=== PATIENT | male | born 1935 ===

== ENCOUNTER 2018-08-13 11:45 | Inpatient (IN) | payer MEDICARE, OTHER, SELFPAY ==
[2018-08-13] VITALS (21 sets, daily range): BP systolic 77–100; BP diastolic 37–50; PULSE 66–96; RESP 16–30; TEMP 35.9–36.7; O2SAT 88–100; BMI 19.6
--- NOTE | 2018-08-13 11:57 | DI.RAD.S_ITS ---
PROCEDURE: XR CHEST 1V INDICATIONS: sob, syncope TECHNIQUE: One view of the chest was acquired. COMPARISON: [facility], CR, XR CHEST 1 VIEW, 07/07/2018, 10:34. [facility], CR, XR CHEST 2 VIEWS, 08/03/2018, 7:35. [facility], CT, CT HEAD/BRAIN WO CON, 08/13/2018, 12:37. FINDINGS: Surgical changes and devices: Pacemaking device and dual chamber leads stable over time. Lungs and pleura: Lungs are abnormal with a previously present interstitial prominence pattern but now with patchy bilateral pneumonia involving the right upper lobe, right lower lobe, the left lower lobe to a greater degree than was previously the case, and to a slight degree in the perihilar left lung. No pleural effusions or pneumothorax. Mediastinum: Mediastinal contours appear normal. Heart size is normal. Bones and chest wall: No suspicious bony lesions. Overlying soft tissues appear unremarkable. IMPRESSION: Bilateral patchy pneumonia, worsening over time. This is most prominent at the right upper lobe, and the lower lobes bilaterally. Dictated by: Han Handy M.D. on 08/13/2018 at 13:04 Approved by: Han Handy M.D. on 08/13/2018 at 13:06
--- NOTE | 2018-08-13 11:59 | ED.SYNCOPE ---
HPI - Syncope General Chief Complaint: Unresponsive Stated Complaint: Hypotension Time Seen by Provider: 08/13/18 11:55 Source: patient, EMS and old records reviewed History of Present Illness HPI narrative: This is an 83-year-old male who comes to the emergency department with complaint of loss of consciousness. Patient was at physical therapy, he was sitting in a wheelchair. He states that he felt like it was coming on. He slumped over in his wheelchair and did have a loss of consciousness. No loss of pulses. Patient's oxygenation was in the 80s when EMS arrived, he is normally on 2 L nasal cannula which she was on there at the facility. Patient is requiring about 2 beers continuing to get him up to the 90s. Patient is denying any chest pain or pressure, he is denying any headache, no vision changes, he states he does feel like it is hard to breathe. He denies any nausea or vomiting. A he did have some fecal incontinence/bowel movement while he was at the facility. Patient has been at rehab for pneumonia, he has known COPD. He denies any new swelling in his lower extremities. He does have a pacemaker, he states he does have cardiac stents. Patient denies any facial droop, no weakness or numbness. MD complaint: loss of consciousness Related Data Home Medications Medication Instructions Recorded Confirmed acetylcysteine 600 mg PO DAILY 08/13/18 08/13/18 albuterol sulfate 2 puff INHALATION Q4H PRN 08/13/18 08/13/18 albuterol sulfate 2.5 mg INHALATION Q4H PRN 08/13/18 08/13/18 ascorbic acid (vitamin C) 500 mg PO DAILY 08/13/18 08/13/18 atorvastatin 40 mg PO BEDTIME 08/13/18 08/13/18 bisacodyl 5 - 10 mg PO PRN PRN 08/13/18 08/13/18 bisacodyl 10 mg SD PRN PRN 08/13/18 08/13/18 cholecalciferol (vitamin D3) 1,000 unit PO DAILY 08/13/18 08/13/18 [Vitamin D3] clopidogrel [Plavix] 75 mg PO DAILY 08/13/18 08/13/18 coenzyme Q10 [CoQ-10] 100 mg PO DAILY 08/13/18 08/13/18 doxazosin 4 mg PO QPM 08/13/18 08/13/18 furosemide 40 mg PO DAILY 08/13/18 08/13/18 ketoconazole 1 applic TOPICAL MOWEFR 08/13/18 08/13/18 latanoprost 1 drp OPHTHALMIC (EYE) BEDTIME 08/13/18 08/13/18 lisinopril 5 mg PO DAILY 08/13/18 08/13/18 magnesium hydroxide [Milk of 30 ml PO PRN PRN 08/13/18 08/13/18 Magnesia] magnesium oxide 400 mg PO DAILY 08/13/18 08/13/18 metoprolol tartrate 100 mg PO BID 08/13/18 08/13/18 mometasone-formoterol [Dulera] 2 puff INHALATION BID 08/13/18 08/13/18 nitroglycerin 0.4 mg SUBLINGUAL Q5-15M PRN 08/13/18 08/13/18 saw palmetto 160 mg PO DAILY 08/13/18 08/13/18 sodium phosphates [Fleet Enema] 1 ea SD PRN PRN 08/13/18 08/13/18 tiotropium bromide 1 cap INHALATION DAILY 08/13/18 08/13/18 warfarin 1.5 mg PO MO 08/13/18 08/13/18 warfarin [Coumadin] 1 mg PO SUTUWETHFRSA 08/13/18 08/13/18 warfarin [Coumadin] 2 mg PO MO 08/13/18 08/13/18 Allergies Allergy/AdvReac Type Severity Reaction Status Date / Time codeine Allergy Difficulty Verified 08/13/18 13:17 Breathing Review of Systems Review of Systems ROS Unobtainable: All systems reviewed & are unremarkable except as noted in HPI and below Constitutional Denies chills, Denies fever(s), Denies frequent falls and Denies headache(s) Eyes Denies change in vision ENT Ears, Nose, Mouth, and Throat: Denies headache(s), Denies neck pain and Denies other (facial droop) Cardiovascular Denies chest pain, Denies diaphoresis, Reports syncope, Denies irregular heart rhythm, Denies leg edema, Reports lightheadedness, Denies radiating jaw, neck or arm pain, Denies palpitations, Reports dyspnea (chronic), Reports dyspnea on exertion (chronic) and Denies orthopnea Respiratory Denies change in phlegm color, Reports chest congestion, Reports cough, Denies hemoptysis, Reports dyspnea (chronic) and Reports dyspnea on exertion (chronic) Gastrointestinal Gastrointestinal: Denies abdominal pain, Denies belching, Denies melena, Denies change in bowel habits, Reports fecal incontinence (with syncope), Denies diarrhea, Denies nausea and Denies vomiting Genitourinary Denies hematuria, Denies flank pain, Denies urinary frequency, Denies urinary incontinence and Denies urinary urgency Musculoskeletal Denies back pain and Denies neck pain Neurologic Denies abnormal speech, Denies confusion, Reports syncope, Denies frequent falls, Denies headache(s), Denies focal weakness and Denies sensory deficit Psychiatric Denies confusion Endocrine Denies palpitations [facility] Medical History COPD (chronic obstructive pulmonary disease) (Acute) Cardiac arrhythmia (Acute) Coronary artery disease (Acute) Pacemaker (Acute) Surgical History History of heart artery stent (Acute) Family History Mother Heart disease Brother Heart disease Social History household members: other Smoking Status: Former smoker alcohol intake: current Exam Narrative Exam Narrative: GEN: Thin elderly male, alert and oriented x 3, patient appears to be in moderate distress. Patient appears to not be feeling well. Pale. HEENT: Atraumatic, pupils are equal round reactive to light, extraocular movements are intact, nares are clear, TMs are clear with no fluid, there is no conjunctival pallor. Throat is clear without any exudates, erythema, tonsillar enlargement or uvular deviation, no facial droop. HEART: Regular rate and rhythm without murmur, clicks, rubs. Pulses are equal in upper and lower extremities LUNGS:Lungs have equal breath sounds bilaterally, decreased patient has crackles bilaterally in the bases and throughout. No rhonchi are noted. No wheezes noted. Patient has tachypnea with some mild to moderate accessory muscle use. ABD:bowel sounds normal, soft, non-tender, no guarding, rebound, rigidity, no masses noted, no hepatosplenomegaly :No CVA tenderness MSCL: Non-tender, no muscle atrophy. NEURO:CN 2-12 intact, sensation normal. No dysarthria. Initial Vital Signs Initial Vital Signs: Vital Signs Temperature 96.7 F L 08/13/18 11:53 Pulse Rate 66 08/13/18 11:53 Respiratory Rate 22 08/13/18 11:53 Blood Pressure 77/41 L 08/13/18 11:53 Pulse Oximetry 98 08/13/18 11:53 Scores GCS Debbie coma scale eye opening: Spontaneous [place] coma scale verbal response: Orientated Debbie coma scale motor response: Obey commands Debbie coma scale total score: 15 Course Orders Ordered: ED Orders 08/13/18 11:55 B Type Natriuretic Peptide Stat Lactate (Lactic Acid) Stat 08/13/18 11:56 EKG-12 Lead Stat 08/13/18 11:57 XR chest 1V Stat 08/13/18 12:15 Arterial Blood Gas Stat 08/13/18 12:25 Clostridium Difficile Tox PCR Stat Complete Blood Count AUTO DIFF Stat Comprehensive Metabolic Panel Stat Magnesium Stat Procalcitonin Stat Prothrombin Time INR Stat Troponin & CK Cardiac Panel Stat 08/13/18 12:28 Blood Culture Stat 08/13/18 12:45 CT head/brain wo con Stat 08/13/18 13:30 Influenza A and B by PCR Rapid Stat 08/13/18 13:39 Urinalysis and Microscopic Stat 08/13/18 17:27 Education, smoking cessation ONGOING 08/13/18 17:28 Consult to Occupational Therapy Evaluate & Treat Consult to Physical Therapy Evaluate & Treat 08/13/18 19:00 Basic Metabolic Panel DAILY Complete Blood Count AUTO DIFF DAILY Acetaminophen (Tylenol) 650 mg PO Q6HR PRN PRN Reason: As Needed for Fever/Mild Pain Albuterol/Ipratropium (Duoneb) 3 ml INH [id number] [facility] Atorvastatin Calcium (Lipitor) 40 mg PO BEDTIME [facility] Clopidogrel Bisulfate (Plavix) 75 mg PO DAILY [facility] Last Admin: 08/13/18 18:48 Dose: Not Given Sodium Chloride (Normal Saline 0.45%) 1,000 mls @ 100 mls/hr IV CONT [facility] Last Admin: 08/13/18 19:06 Dose: 100 mls/hr Latanoprost (Xalatan) 1 drops EYE-LEFT BEDTIME [facility] Lisinopril (Zestril) 5 mg PO DAILY [facility] Nitroglycerin (Nitrostat) 0.4 mg SL [id number] PRN PRN Reason: Chest Pain Ondansetron HCl (Zofran) 4 mg IV Q8HR PRN PRN Reason: Nausea And Vomiting Fluticasone/Salmeterol (Advair 500/50 Diskus) 1 puff INH RTBID [facility] Tiotropium [place] (Spiriva) 18 mcg INH RTDAILY [facility] Vitamin D (Vitamin D3) 1,000 unit PO DAILY [facility] Last Admin: 08/13/18 18:48 Dose: Not Given Warfarin Sodium (Coumadin) 1 mg PO 1700 [facility] Last Admin: 08/13/18 19:05 Dose: 1 mg Discontinued Medications Albuterol/Ipratropium (Duoneb) 3 ml INH NOW ONE Stop: 08/13/18 11:59 Last Admin: 08/13/18 12:05 Dose: 3 ml Furosemide (Lasix) 40 mg IV NOW ONE Stop: 08/13/18 11:59 Last Admin: 08/13/18 13:22 Dose: 40 mg Sodium Chloride (Normal Saline 0.9%) 1,000 mls @ 1,000 mls/hr IV BOLUS ONE Stop: 08/13/18 12:54 Last Infusion: 08/13/18 13:35 Dose: 0 mls/hr Admin: 08/13/18 12:30 Dose: 1,000 mls/hr Piperacillin/Tazobactam/Dextrose (Zosyn) 3.375 gm in 50 mls @ 100 mls/hr IV NOW ONE Stop: 08/13/18 14:00 Last Infusion: 08/13/18 14:19 Dose: 0 mls/hr Admin: 08/13/18 13:43 Dose: 100 mls/hr Calcium Gluconate 4.65 meq/ (Sodium Chloride) 60 mls @ 120 mls/hr IV NOW ONE Stop: 08/13/18 13:32 Last Infusion: 08/13/18 14:19 Dose: 0 mls/hr Admin: 08/13/18 13:43 Dose: 120 mls/hr Vital Signs - 8 hr 08/13/18 12:10 08/13/18 12:30 08/13/18 12:48 Temperature Pulse Rate 75 81 83 Respiratory Rate 26 H 28 H 28 H Blood Pressure Blood Pressure [Left Arm] 85/43 L 82/48 L Blood Pressure [Right Arm] Pulse Oximetry 100 95 99 08/13/18 12:51 08/13/18 12:57 08/13/18 13:00 Temperature Pulse Rate 79 83 80 Respiratory Rate 30 H 30 H 23 Blood Pressure Blood Pressure [Left Arm] 80/49 L 100/46 L 84/50 L Blood Pressure [Right Arm] Pulse Oximetry 99 95 08/13/18 13:05 08/13/18 13:42 08/13/18 14:25 Temperature Pulse Rate 79 78 Respiratory Rate 24 26 H Blood Pressure Blood Pressure [Left Arm] 78/44 L 91/50 L 98/46 L Blood Pressure [Right Arm] Pulse Oximetry 97 95 08/13/18 15:15 08/13/18 15:50 08/13/18 15:55 Temperature Pulse Rate 80 80 82 Respiratory Rate 22 23 22 Blood Pressure Blood Pressure [Left Arm] 84/42 L Blood Pressure [Right Arm] 89/48 L 80/42 L Pulse Oximetry 97 96 96 08/13/18 16:12 08/13/18 16:40 08/13/18 18:25 Temperature 97.4 F L Pulse Rate 79 88 Respiratory Rate 18 20 Blood Pressure 98/49 L Blood Pressure [Left Arm] Blood Pressure [Right Arm] 96/45 L Pulse Oximetry 96 94 94 MDM - Syncope Lab Data Attestation: I reviewed the patient's lab results. Result diagrams: 08/13/18 19:00 08/13/18 19:00 Lab Results 08/13/18 08/13/18 08/13/18 Range/Units 11:55 11:55 12:15 WBC (4.5-11.0) X10^3/uL RBC (4.5-5.9) X10^6/uL Hgb (13.5-17.5) g/dL Hct (41-53) % MCV (80-100) fL MCH (26-34) PG MCHC (30-36) % RDW (11.6-14.8) % Plt Count (150-400) X10^3/uL Neut % (Auto) Lymph % (Auto) [place] % (Auto) Eos % (Auto) Baso % (Auto) Neut # (Auto) (0504-2849) /uL Lymph # (Auto) [place] # (Auto) Eos # (Auto) (0-450) /uL Baso # (Auto) Total Counted Seg Neutrophils % (38-70) % Band Neutrophils % (3-7) % Lymphocytes % (Manual) (25-45) % Atypical Lymphs % ( - 0) % Monocytes % (Manual) (2-11) % Neutrophils # (Manual) (2120-6214) /uL RBC Morphology Poikilocytosis Anisocytosis Macrocytosis Ovalocytes PT (10.1-12.7) SECONDS INR (0.9-1.3) ABG pH 7.41 (7.35-7.45) ABG pCO2 38.2 (35-45) mmHg ABG pO2 128 H (80-100) mmHg ABG HCO3 24 (22-26) mmol/L ABG Total CO2 25 (21-31) mmol/L ABG O2 Saturation 99 (95-100) % ABG Base Excess 0.0 (-2-2) mmol/L FiO2 100 Sodium (137-145) mmol/L Potassium (3.4-5.1) mmol/L Chloride (98-107) mmol/L Carbon Dioxide (22-32) mmol/L BUN (9-20) mg/dL Creatinine (0.66-1.25) mg/dL Estimated GFR (>60) mL/min BUN/Creatinine Ratio (6-22) Glucose (80-110) mg/dL Lactate 1.8 (0.7-2.1) mmol/L Calcium (8.4-10.2) mg/dL Magnesium (1.6-2.3) mg/dL Total Bilirubin (0.2-1.3) mg/dL AST (17-59) IU/L ALT (21-72) IU/L Alkaline Phosphatase (38-126) U/L Total Creatine Kinase (55-170) U/L CK-MB (CK-2) CK-MB (CK-2) Rel Index Troponin I (0.01-0.034) ng/mL B-Natriuretic Peptide 821 H (<100) Total Protein (6.3-8.2) g/dL Albumin (3.5-5.0) g/dL Globulin (1.7-4.1) g/dL Albumin/Globulin Ratio (1.0-2.8) Procalcitonin (<0.5) ng/mL Urine Color Urine Appearance Urine pH (4.5-8.0) Ur Specific [place] (1.000-1.035) Urine Protein (Negative) Urine Glucose (UA) (Negative) g/dL Urine Ketones (NEGATIVE) Urine Occult Blood (Negative) Urine Nitrate (Negative) Urine Bilirubin (NEGATIVE) Urine Urobilinogen (0.2) E.U./dL Ur Leukocyte Esterase (NEGATIVE) Urine RBC (0-5/HPF) Urine WBC (0-5/HPF) Urine Bacteria (None) Hyaline Casts (None) Ur Culture Indicated? C. difficile Tox (PCR) Influenza A & B (PCR) (Negative) 08/13/18 08/13/18 08/13/18 Range/Units 12:25 12:25 12:25 WBC 14.3 H (4.5-11.0) X10^3/uL RBC 2.50 L (4.5-5.9) X10^6/uL Hgb 8.7 L (13.5-17.5) g/dL Hct 25.5 L (41-53) % MCV 102.1 H (80-100) fL MCH 35.0 H (26-34) PG MCHC 34.3 (30-36) % RDW 17.2 H (11.6-14.8) % Plt Count 298 (150-400) X10^3/uL Neut % (Auto) Not Reportable Lymph % (Auto) Not Reportable [place] % (Auto) Not Reportable Eos % (Auto) Not Reportable Baso % (Auto) Not Reportable Neut # (Auto) (0283-1669) /uL Lymph # (Auto) Not Reportable [place] # (Auto) Not Reportable Eos # (Auto) (0-450) /uL Baso # (Auto) Not Reportable Total Counted 100 Seg Neutrophils % 92.0 H (38-70) % Band Neutrophils % 2.0 L (3-7) % Lymphocytes % (Manual) 2.0 L (25-45) % Atypical Lymphs % 1.0 H ( - 0) % Monocytes % (Manual) 3.0 (2-11) % Neutrophils # (Manual) 71655 H (3603-6410) /uL RBC Morphology See below Poikilocytosis 2+ H Anisocytosis 1+ H Macrocytosis 1+ H Ovalocytes 2+ H PT 28.1 H D (10.1-12.7) SECONDS INR 2.4 H (0.9-1.3) ABG pH (7.35-7.45) ABG pCO2 (35-45) mmHg ABG pO2 (80-100) mmHg ABG HCO3 (22-26) mmol/L ABG Total CO2 (21-31) mmol/L ABG O2 Saturation (95-100) % ABG Base Excess (-2-2) mmol/L FiO2 Sodium 136 L (137-145) mmol/L Potassium 4.7 (3.4-5.1) mmol/L Chloride 101 (98-107) mmol/L Carbon Dioxide 28 (22-32) mmol/L BUN 30 H (9-20) mg/dL Creatinine 1.10 (0.66-1.25) mg/dL Estimated GFR > 60.0 (>60) mL/min BUN/Creatinine Ratio 27.3 H (6-22) Glucose 148 H (80-110) mg/dL Lactate (0.7-2.1) mmol/L Calcium 7.9 L (8.4-10.2) mg/dL Magnesium 1.9 (1.6-2.3) mg/dL Total Bilirubin 0.4 (0.2-1.3) mg/dL AST 35 (17-59) IU/L ALT 35 (21-72) IU/L Alkaline Phosphatase 77 (38-126) U/L Total Creatine Kinase 24 L (55-170) U/L CK-MB (CK-2) TNP CK-MB (CK-2) Rel Index TNP Troponin I < 0.012 (0.01-0.034) ng/mL B-Natriuretic Peptide (<100) Total Protein 5.9 L (6.3-8.2) g/dL Albumin 2.8 L (3.5-5.0) g/dL Globulin 3.1 (1.7-4.1) g/dL Albumin/Globulin Ratio 0.9 L (1.0-2.8) Procalcitonin (<0.5) ng/mL Urine Color Urine Appearance Urine pH (4.5-8.0) Ur Specific [place] (1.000-1.035) Urine Protein (Negative) Urine Glucose (UA) (Negative) g/dL Urine Ketones (NEGATIVE) Urine Occult Blood (Negative) Urine Nitrate (Negative) Urine Bilirubin (NEGATIVE) Urine Urobilinogen (0.2) E.U./dL Ur Leukocyte Esterase (NEGATIVE) Urine RBC (0-5/HPF) Urine WBC (0-5/HPF) Urine Bacteria (None) Hyaline Casts (None) Ur Culture Indicated? C. difficile Tox (PCR) Influenza A & B (PCR) (Negative) 08/13/18 08/13/18 08/13/18 Range/Units 12:25 12:25 13:30 WBC (4.5-11.0) X10^3/uL RBC (4.5-5.9) X10^6/uL Hgb (13.5-17.5) g/dL Hct (41-53) % MCV (80-100) fL MCH (26-34) PG MCHC (30-36) % RDW (11.6-14.8) % Plt Count (150-400) X10^3/uL Neut % (Auto) Lymph % (Auto) [place] % (Auto) Eos % (Auto) Baso % (Auto) Neut # (Auto) (0849-6272) /uL Lymph # (Auto) [place] # (Auto) Eos # (Auto) (0-450) /uL Baso # (Auto) Total Counted Seg Neutrophils % (38-70) % Band Neutrophils % (3-7) % Lymphocytes % (Manual) (25-45) % Atypical Lymphs % ( - 0) % Monocytes % (Manual) (2-11) % Neutrophils # (Manual) (7745-9299) /uL RBC Morphology Poikilocytosis Anisocytosis Macrocytosis Ovalocytes PT (10.1-12.7) SECONDS INR (0.9-1.3) ABG pH (7.35-7.45) ABG pCO2 (35-45) mmHg ABG pO2 (80-100) mmHg ABG HCO3 (22-26) mmol/L ABG Total CO2 (21-31) mmol/L ABG O2 Saturation (95-100) % ABG Base Excess (-2-2) mmol/L FiO2 Sodium (137-145) mmol/L Potassium (3.4-5.1) mmol/L Chloride (98-107) mmol/L Carbon Dioxide (22-32) mmol/L BUN (9-20) mg/dL Creatinine (0.66-1.25) mg/dL Estimated GFR (>60) mL/min BUN/Creatinine Ratio (6-22) Glucose (80-110) mg/dL Lactate (0.7-2.1) mmol/L Calcium (8.4-10.2) mg/dL Magnesium (1.6-2.3) mg/dL Total Bilirubin (0.2-1.3) mg/dL AST (17-59) IU/L ALT (21-72) IU/L Alkaline Phosphatase (38-126) U/L Total Creatine Kinase (55-170) U/L CK-MB (CK-2) CK-MB (CK-2) Rel Index Troponin I (0.01-0.034) ng/mL B-Natriuretic Peptide (<100) Total Protein (6.3-8.2) g/dL Albumin (3.5-5.0) g/dL Globulin (1.7-4.1) g/dL Albumin/Globulin Ratio (1.0-2.8) Procalcitonin 0.15 (<0.5) ng/mL Urine Color Urine Appearance Urine pH (4.5-8.0) Ur Specific [place] (1.000-1.035) Urine Protein (Negative) Urine Glucose (UA) (Negative) g/dL Urine Ketones (NEGATIVE) Urine Occult Blood (Negative) Urine Nitrate (Negative) Urine Bilirubin (NEGATIVE) Urine Urobilinogen (0.2) E.U./dL Ur Leukocyte Esterase (NEGATIVE) Urine RBC (0-5/HPF) Urine WBC (0-5/HPF) Urine Bacteria (None) Hyaline Casts (None) Ur Culture Indicated? C. difficile Tox (PCR) Negative for c. diff Influenza A & B (PCR) Negative (Negative) 08/13/18 08/13/18 08/13/18 Range/Units 13:39 19:00 19:00 WBC 14.1 H (4.5-11.0) X10^3/uL RBC 2.52 L (4.5-5.9) X10^6/uL Hgb 8.9 L (13.5-17.5) g/dL Hct 27.5 L (41-53) % MCV 108.9 H D (80-100) fL MCH 35.2 H (26-34) PG MCHC 32.3 (30-36) % RDW 18.1 H (11.6-14.8) % Plt Count 309 (150-400) X10^3/uL Neut % (Auto) 84.5 H Lymph % (Auto) 6.7 L [place] % (Auto) 8.0 Eos % (Auto) 0.4 L Baso % (Auto) 0.4 Neut # (Auto) 80338 H (4753-5330) /uL Lymph # (Auto) 900 L [place] # (Auto) 1100 H Eos # (Auto) 100 (0-450) /uL Baso # (Auto) 0 Total Counted Seg Neutrophils % (38-70) % Band Neutrophils % (3-7) % Lymphocytes % (Manual) (25-45) % Atypical Lymphs % ( - 0) % Monocytes % (Manual) (2-11) % Neutrophils # (Manual) (1980-1398) /uL RBC Morphology Poikilocytosis Anisocytosis Macrocytosis Ovalocytes PT (10.1-12.7) SECONDS INR (0.9-1.3) ABG pH (7.35-7.45) ABG pCO2 (35-45) mmHg ABG pO2 (80-100) mmHg ABG HCO3 (22-26) mmol/L ABG Total CO2 (21-31) mmol/L ABG O2 Saturation (95-100) % ABG Base Excess (-2-2) mmol/L FiO2 Sodium 137 (137-145) mmol/L Potassium 3.7 (3.4-5.1) mmol/L Chloride 103 (98-107) mmol/L Carbon Dioxide 26 (22-32) mmol/L BUN 28 H (9-20) mg/dL Creatinine 1.00 (0.66-1.25) mg/dL Estimated GFR > 60.0 (>60) mL/min BUN/Creatinine Ratio 28.0 H (6-22) Glucose 125 H (80-110) mg/dL Lactate (0.7-2.1) mmol/L Calcium 8.2 L (8.4-10.2) mg/dL Magnesium (1.6-2.3) mg/dL Total Bilirubin (0.2-1.3) mg/dL AST (17-59) IU/L ALT (21-72) IU/L Alkaline Phosphatase (38-126) U/L Total Creatine Kinase (55-170) U/L CK-MB (CK-2) CK-MB (CK-2) Rel Index Troponin I (0.01-0.034) ng/mL B-Natriuretic Peptide (<100) Total Protein (6.3-8.2) g/dL Albumin (3.5-5.0) g/dL Globulin (1.7-4.1) g/dL Albumin/Globulin Ratio (1.0-2.8) Procalcitonin (<0.5) ng/mL Urine Color Yellow Urine Appearance Clear Urine pH 7.0 (4.5-8.0) Ur Specific [place] 1.010 (1.000-1.035) Urine Protein Negative (Negative) Urine Glucose (UA) Negative (Negative) g/dL Urine Ketones Negative (NEGATIVE) Urine Occult Blood 1+ H (Negative) Urine Nitrate Negative (Negative) Urine Bilirubin Negative (NEGATIVE) Urine Urobilinogen 0.2 (0.2) E.U./dL Ur Leukocyte Esterase Negative (NEGATIVE) Urine RBC 1-5/hpf (0-5/HPF) Urine WBC 0-1/hpf (0-5/HPF) Urine Bacteria Occasional (0-1) (None) Hyaline Casts 1-5/lpf (None) Ur Culture Indicated? Cult not indicated C. difficile Tox (PCR) Influenza A & B (PCR) (Negative) ABG Data Attestation: I personally reviewed and interpreted this ABG as follows: Interpretation: Patient's ABG shows a pH of 7.412 with a pCO2 of 38 P a 0-128 and a bicarb of 24. Normal ABG, although patient did require additional oxygen from baseline during ABG. Imaging Data Chest x-ray: Radiologist's impression: [address] [address] XRay Report Signed Patient: Guillermo Sun EMR#: [id number] : 6Acct:[id number] Age/Sex: 83 / MDate of Service: 08/13/18 Loc: ED Accession Number: [id number] Procedure: XR chest 1V Ordering Provider: Vianey Holley D.O. PROCEDURE: XR CHEST 1V INDICATIONS: sob, syncope TECHNIQUE: One view of the chest was acquired. COMPARISON: [facility], CR, XR CHEST 1 VIEW, 07/07/2018, 10:34. [facility], CR, XR CHEST 2 VIEWS, 08/03/2018, 7:35. [facility], CT, CT HEAD/BRAIN WO CON, 08/13/2018, 12:37. FINDINGS: Surgical changes and devices: Pacemaking device and dual chamber leads stable over time. Lungs and pleura: Lungs are abnormal with a previously present interstitial prominence pattern but now with patchy bilateral pneumonia involving the right upper lobe, right lower lobe, the left lower lobe to a greater degree than was previously the case, and to a slight degree in the perihilar left lung. No pleural effusions or pneumothorax. Mediastinum: Mediastinal contours appear normal. Heart size is normal. Bones and chest wall: No suspicious bony lesions. Overlying soft tissues appear unremarkable. IMPRESSION: Bilateral patchy pneumonia, worsening over time. This is most prominent at the right upper lobe, and the lower lobes bilaterally. Dictated by: Han Handy M.D. on 08/13/2018 at 13:04 Approved by: Han Handy M.D. on 08/13/2018 at 13:06 CT scan - head: Radiologist's impression: [place] [address] CT Scan Report Signed Patient: Guillermo Sun EMR#: [id number] : 1935Acct:[id number] Age/Sex: 83 / MDate of Service: 08/13/18 Loc: ED Accession Number: [id number] Procedure: CT head/brain wo con Ordering Provider: Vianey Holley D.O. PROCEDURE: CT HEAD/BRAIN WO CON INDICATIONS: syncope, sob TECHNIQUE: Noncontrast 4.5 mm thick angled axial sections acquired from the foramen magnum to the vertex, with coronal and sagittal reformats. For radiation dose reduction, the following was used: automated exposure control, adjustment of mA and/or kV according to patient size. COMPARISON: None. FINDINGS: Image quality: Diagnostic. CSF spaces: Basal cisterns are patent. No extra-axial fluid collections. Ventricles are moderately prominent, particularly involving the occipital horns of the lateral ventricles. The 4th ventricle is decompressed. There is parenchymal volume loss. Brain: No midline shift. No intracranial masses or hemorrhage. Carmen-white matter interface is normal. Subtle areas of low attenuation are seen within the periventricular and deep white matter of the supratentorial brain. Skull and face: Calvarium and visualized facial bones are intact, without suspicious lesions. Sinuses: Visualized sinuses and mastoids are clear. IMPRESSION: 1. No acute intracranial hemorrhage. 2. Parenchymal volume loss and chronic small vessel ischemic changes. 3. Asymmetric prominence of the lateral ventricles with respect to the degree of cortical volume loss is nonspecific, but may be seen in the setting of normal pressure hydrocephalus and clinical correlation is recommended. Dictated by: Lyle Hawkins M.D. on 08/13/2018 at 11:56 Approved by: Lyle Hawkins M.D. on 08/13/2018 at 11:57 ECG Data Attestation: I personally reviewed and interpreted this ECG as follows: Interpretation: Ventricularly paced rhythm with a rate of 64 P are interval of 203 QRS of 176 [address] elevation or depression. MDM Narrative Medical decision making narrative: Patient comes to the emergency department with complaint of syncopal episode that was witnessed. Patient states he felt it coming on. Head CT is negative per EMS patient had a prolonged period of unresponsiveness to 10 min. Patient was feeling more short of breath and his oxygen was quite low when EMS arrived an even for os it was low initially requiring more than his usual 2 L of oxygen via nasal cannula. Patient has had a recent pneumonia diagnosis terry virus and treated while he was at [facility]. Paperwork shows that he was hypotensive and initially during his stay but responded to gentle fluids. Patient here has continued to be hypotensive on although his mental status has improved after 2 L of fluid. Patient's lab work shows slight elevation to his white count from the most recent which was 13 today 14. He is anemic but appears similar to the last that we have available. Lactate is normal. CMP does not show any major abnormalities other than calcium is low at 7.9, troponin is normal. BNP is elevated in the 800s but he was in the 1600 range from lab work at [facility] [facility] Patient did have crackles on exam but chest x-ray was also positive for worsening pneumonia, patient was given a dose of Zosyn here in the department as this was prior to receiving his paperwork stating his groin a virus and procalcitonin here today being negative. Influenza was also tested and negative. UA is negative.. Suspect this may be part of his issue today. He does not seem to be more hypoxic after fluids. And with been able to wean down his oxygen. Based on his more prolonged period of syncope as well as persistent hypotension although his mental status is improved spoke with Dr. Ang and she accepts for admission. Patient continues to improve in the department so put a floor care. Discharge Plan Departure Patient Disposition: Admitted as Observation Clinical Impression: Syncope, Hypotension, Pneumonia Discharge Date/Time: 08/13/18 16:45 Interventions: ED Discharge Assessment Last Done: 08/13/18 16:43 Referrals: Lino Dempsey MD [Primary Care Provider] - Admit Date/Time: 08/13/18 15:00 Admit Provider: Jana Ang
[2018-08-13] MEDS: ALBUTEROL/IPRATROPIUM 3 ML AMPUL INH ×2 (12:05→20:30)
[2018-08-13] MEDS: SODIUM CHLORIDE 0.9% 1,000 ML 1000 ML IV (12:30)
--- NOTE | 2018-08-13 12:45 | DI.CT.S_ITS ---
PROCEDURE: CT HEAD/BRAIN WO CON INDICATIONS: syncope, sob TECHNIQUE: Noncontrast 4.5 mm thick angled axial sections acquired from the foramen magnum to the vertex, with coronal and sagittal reformats. For radiation dose reduction, the following was used: automated exposure control, adjustment of mA and/or kV according to patient size. COMPARISON: None. FINDINGS: Image quality: Diagnostic. CSF spaces: Basal cisterns are patent. No extra-axial fluid collections. Ventricles are moderately prominent, particularly involving the occipital horns of the lateral ventricles. The 4th ventricle is decompressed. There is parenchymal volume loss. Brain: No midline shift. No intracranial masses or hemorrhage. Carmen-white matter interface is normal. Subtle areas of low attenuation are seen within the periventricular and deep white matter of the supratentorial brain. Skull and face: Calvarium and visualized facial bones are intact, without suspicious lesions. Sinuses: Visualized sinuses and mastoids are clear. IMPRESSION: 1. No acute intracranial hemorrhage. 2. Parenchymal volume loss and chronic small vessel ischemic changes. 3. Asymmetric prominence of the lateral ventricles with respect to the degree of cortical volume loss is nonspecific, but may be seen in the setting of normal pressure hydrocephalus and clinical correlation is recommended. Dictated by: Lyle Hawkins M.D. on 08/13/2018 at 11:56 Approved by: Lyle Hawkins M.D. on 08/13/2018 at 11:57
[2018-08-13 12:50] LABS: Hematocrit 25.5 % (41-53); Hemoglobin 8.7 g/dL (13.5-17.5); Mean Corpuscular HGB Conc 34.3 % (30-36); Mean Corpuscular Volume 102.1 fL (80-100); Platelet Count 298 X10^3/uL (150-400); Red Cell Distribution Width 17.2 % (11.6-14.8); White Blood Cell Count 14.3 X10^3/uL (4.5-11.0)
[2018-08-13 12:51] LABS: Add Manual Diff / Slide Review YES
[2018-08-13 12:52] LABS: Fractionated Inspired Oxygen 100; HCO3 ABG 24 mmol/L (22-26); Oxygen Saturation ABG 99 % (95-100); PCO2 ABG 38.2 mmHg (35-45); PO2 ABG 128 mmHg (80-100); TCO2 ABG 25 mmol/L (21-31); pH ABG 7.41 (7.35-7.45)
[2018-08-13 12:53] LABS: INR 2.4 (0.9-1.3); Prothrombin Time 28.1 SECONDS (10.1-12.7)
[2018-08-13 12:59] LABS: Lactate (Lactic Acid) 1.8 mmol/L (0.7-2.1)
[2018-08-13 13:01] LABS: Alanine Aminotransferase 35 IU/L (21-72); Albumin 2.8 g/dL (3.5-5.0); Albumin Globulin Ratio 0.9 (1.0-2.8); Alkaline Phosphatase 77 U/L (38-126); Aspartate Aminotransferase 35 IU/L (17-59); BUN Creatinine Ratio 27.3 (6-22); Bilirubin Total 0.4 mg/dL (0.2-1.3); Blood Urea Nitrogen 30 mg/dL (9-20); Calcium 7.9 mg/dL (8.4-10.2); Carbon Dioxide 28 mmol/L (22-32); Chloride 101 mmol/L (98-107); Creatine Kinase 24 U/L (55-170); Estimated Glomerular Filt Rate > 60.0 mL/min (>60); Globulin 3.1 g/dL (1.7-4.1); Glucose 148 mg/dL (80-110); Magnesium 1.9 mg/dL (1.6-2.3); Potassium 4.7 mmol/L (3.4-5.1); Sodium 136 mmol/L (137-145); Total Protein 5.9 g/dL (6.3-8.2)
[2018-08-13 13:04] LABS: B Type Natriuretic Peptide 821 (<100)
[2018-08-13 13:14] LABS: HEMOLYSIS < 15 (0-50)
--- NOTE | 2018-08-13 13:16 | PC.NURSE ---
Normal Saline from ambulance
[2018-08-13] MEDS: FUROSEMIDE 40 MG/4 ML VIAL IV (13:22)
[2018-08-13 13:25] LABS: Troponin I < 0.012 ng/mL (0.01-0.034)
[2018-08-13 13:34] LABS: Anisocytosis 1+; Neutrophils Absolute Manual 13442 /uL (3000-5900); Total Cells Counted 100
[2018-08-13 13:35] LABS: Macrocytosis 1+; Ovalocytes 2+; Poikilocytosis 2+
[2018-08-13] MEDS: CALCIUM GLUCONATE 4.65 MEQ in SODIUM CHLORIDE 0.9% 50 ML 120 ML IV (13:43)
[2018-08-13] MEDS: PIPERACILLIN-TAZO 3.375 GM/50 ML FROZ.PIGGY IV (13:43)
[2018-08-13 13:47] LABS: Appearance Urine UA CLEAR; Bilirubin Urine UA NEGATIVE (NEGATIVE); Color Urine UA YELLOW; Glucose Urine UA NEGATIVE (Negative); Ketones Urine UA NEGATIVE (NEGATIVE); Leukocyte Esterase Urine UA NEGATIVE (NEGATIVE); Nitrite Urine UA NEGATIVE (Negative); Occult Blood Urine UA 1+ (Negative); Protein Urine UA NEGATIVE (Negative); Urobilinogen Urine UA 0.2 E.U./dL (0.2)
[2018-08-13 13:57] LABS: Influenza A and B by PCR Rapid Negative (Negative)
[2018-08-13 13:59] LABS: Bacteria Urine Occasional (0-1); Culture Indicated Urine Cult Not Indicated; Hyaline Casts Urine 1-5/LPF; RBC Urine 1-5/HPF (0-5/HPF); WBC Urine 0-1/HPF (0-5/HPF)
[2018-08-13 14:11] LABS: Procalcitonin 0.15 ng/mL (<0.5)
[2018-08-13 14:25] LABS: Clostridium Difficile Tox PCR Negative for C. diff
--- NOTE | 2018-08-13 15:59 | PC.NURSE ---
Patient blood pressure in the 80s, most recent was 80/42. Patient is producing urine in Wade bag and is rousable to voice. Oriented x3. Provider aware. No new orders.
--- NOTE | 2018-08-13 16:38 | PC.NURSE ---
Changed patient's brief and noted some skin breakdown in the sacral area with surrounding blanchable erythema on the buttocks. Some maceration is noted. Placed barrier cream and notified oncoming nurse. Patient stated he had a sore back there from sitting in w/c for too long that was healing.
--- NOTE | 2018-08-13 17:34 | PM.HP.1 ---
History of Present Illness Date Patient Seen: 08/13/18 Chief complaint: Hypotension Narrative: Patient is an 83-year-old male with a history of COPD, coronary artery disease, atrial fibrillation status post permanent pacemaker placement who was discharged from [facility] 1 week ago after treatment for pneumonia. The patient reports his blood pressures been running low for some time. He was at the half-way recovering from his hospitalization when he was on the toilet and slumped over. The patient had his blood pressure checked at the time and he was found to have a systolic blood pressure of 60. He was out for about 10 min before he came to. Patient was brought in by medics to the emergency department. He was found to be markedly hypoxic and required several L of oxygen to bring his O2 sat up to 90 percentile range. He was subsequently able to be placed on 2 L of oxygen saturating appropriately. The patient was found to be hypotensive. He was given several L of fluid with improvement of his blood pressure. The patient continues to have a cough. He has had no fever or chills. He reports chronic shortness breath from his COPD. He denies any chest pain or palpitations. He has no headache or blurred vision. He felt somewhat lightheaded and dizzy before passing out. The patient has no hematemesis melena. Red blood per rectum. He has no dysuria hematuria or pyuria. Patient did have some urinary retention in the emergency department and a Wade catheter was placed. Patient describes hallucinations over the past 2 days while at the half-way. He and his wonder if 1 of his medications could be the culprit. He has improved significantly. His lactic acid was normal. He was admitted to the hospital for treatment of syncope. Patient reports having an episode of diarrhea earlier today. Patient History Medical History COPD (chronic obstructive pulmonary disease) (Acute) Cardiac arrhythmia (Acute) Coronary artery disease (Acute) Pacemaker (Acute) Surgical History History of heart artery stent (Acute) Family & Social History Family History Mother Heart disease Brother Heart disease Safety & Behavioral: Feels Safe in Current Unwilling to Answer Environment Tobacco & Substance use: Substance Use Type does not use Meds Home Medications Medication Instructions Recorded Confirmed Type acetylcysteine 600 mg PO DAILY 08/13/18 08/13/18 History albuterol sulfate 2 puff INHALATION Q4H PRN 08/13/18 08/13/18 History albuterol sulfate 2.5 mg INHALATION Q4H PRN 08/13/18 08/13/18 History ascorbic acid (vitamin C) 500 mg PO DAILY 08/13/18 08/13/18 History atorvastatin 40 mg PO BEDTIME 08/13/18 08/13/18 History bisacodyl 5 - 10 mg PO PRN PRN 08/13/18 08/13/18 History bisacodyl 10 mg HI PRN PRN 08/13/18 08/13/18 History cholecalciferol (vitamin D3) 1,000 unit PO DAILY 08/13/18 08/13/18 History [Vitamin D3] clopidogrel [Plavix] 75 mg PO DAILY 08/13/18 08/13/18 History coenzyme Q10 [CoQ-10] 100 mg PO DAILY 08/13/18 08/13/18 History doxazosin 4 mg PO QPM 08/13/18 08/13/18 History furosemide 40 mg PO DAILY 08/13/18 08/13/18 History ketoconazole 1 applic TOPICAL MOWEFR 08/13/18 08/13/18 History latanoprost 1 drp OPHTHALMIC (EYE) BEDTIME 08/13/18 08/13/18 History lisinopril 5 mg PO DAILY 08/13/18 08/13/18 History magnesium hydroxide [Milk of 30 ml PO PRN PRN 08/13/18 08/13/18 History Magnesia] magnesium oxide 400 mg PO DAILY 08/13/18 08/13/18 History metoprolol tartrate 100 mg PO BID 08/13/18 08/13/18 History mometasone-formoterol [Dulera] 2 puff INHALATION BID 08/13/18 08/13/18 History nitroglycerin 0.4 mg SUBLINGUAL Q5-15M PRN 08/13/18 08/13/18 History saw palmetto 160 mg PO DAILY 08/13/18 08/13/18 History sodium phosphates [Fleet Enema] 1 ea HI PRN PRN 02/11/19 02/11/19 History tiotropium bromide 1 cap INHALATION DAILY 08/13/18 08/13/18 History warfarin 1.5 mg PO MO 08/13/18 08/13/18 History warfarin [Coumadin] 1 mg PO SUTUWETHFRSA 08/13/18 08/13/18 History warfarin [Coumadin] 2 mg PO MO 08/13/18 08/13/18 History Allergies Allergy/AdvReac Type Severity Reaction Status Date / Time codeine Allergy Difficulty Verified 08/13/18 13:17 Breathing Review of Systems Review of Systems All systems reviewed & are unremarkable except as noted in HPI and below Exam Vital Signs (past 8 hours): - 08/13/18 11:53 08/13/18 12:10 08/13/18 12:30 Temperature 96.7 F L Pulse Rate 66 75 81 Respiratory Rate 22 26 H 28 H Blood Pressure 77/41 L Blood Pressure [Left Arm] 85/43 L Blood Pressure [Right Arm] Pulse Oximetry 98 100 95 08/13/18 12:48 08/13/18 12:51 08/13/18 12:57 Temperature Pulse Rate 83 79 83 Respiratory Rate 28 H 30 H 30 H Blood Pressure Blood Pressure [Left Arm] 82/48 L 80/49 L 100/46 L Blood Pressure [Right Arm] Pulse Oximetry 99 99 08/13/18 13:00 08/13/18 13:05 08/13/18 13:42 Temperature Pulse Rate 80 79 Respiratory Rate 23 24 Blood Pressure Blood Pressure [Left Arm] 84/50 L 78/44 L 91/50 L Blood Pressure [Right Arm] Pulse Oximetry 95 97 08/13/18 14:25 08/13/18 15:15 08/13/18 15:50 Temperature Pulse Rate 78 80 80 Respiratory Rate 26 H 22 23 Blood Pressure Blood Pressure [Left Arm] 98/46 L 84/42 L Blood Pressure [Right Arm] 89/48 L Pulse Oximetry 95 97 96 08/13/18 15:55 08/13/18 16:12 Temperature Pulse Rate 82 79 Respiratory Rate 22 18 Blood Pressure Blood Pressure [Left Arm] Blood Pressure [Right Arm] 80/42 L 96/45 L Pulse Oximetry 96 96 Oxygen Delivery Method Nasal Cannula Oxygen Flow Rate 2 Narrative Exam Narrative: Chronically ill-appearing male awake alert and answering questions appropriately HEENT: Normocephalic atraumatic, extraocular muscles are intact, oropharynx is clear, neck is supple, there is no JVD or adenopathy Lungs: Decreased breath sounds with scattered rhonchi bilaterally Cardiac exam: Regular rate and rhythm normal S1 and S2 with a 2/6 systolic ejection murmur Abdomen: Soft nontender nondistended without hepatosplenomegaly Extremities: No edema Neuro exam: Nonfocal Psychiatric exam: Patient has no hallucinations or ticks or active delusions. Objective Labs Result Diagrams: 08/13/18 12:25 08/13/18 12:25 Labs: Laboratory Results - last 24 hr 08/13/18 08/13/18 08/13/18 11:55 11:55 12:15 WBC RBC Hgb Hct MCV MCH MCHC RDW Plt Count Neut % (Auto) Lymph % (Auto) [place] % (Auto) Eos % (Auto) Baso % (Auto) Lymph # (Auto) [place] # (Auto) Baso # (Auto) Total Counted Seg Neutrophils % Band Neutrophils % Lymphocytes % (Manual) Atypical Lymphs % Monocytes % (Manual) Neutrophils # (Manual) RBC Morphology Poikilocytosis Anisocytosis Macrocytosis Ovalocytes PT INR ABG pH 7.41 ABG pCO2 38.2 ABG pO2 128 H ABG HCO3 24 ABG Total CO2 25 ABG O2 Saturation 99 ABG Base Excess 0.0 FiO2 100 Sodium Potassium Chloride Carbon Dioxide BUN Creatinine Estimated GFR BUN/Creatinine Ratio Glucose Lactate 1.8 Calcium Magnesium Total Bilirubin AST ALT Alkaline Phosphatase Total Creatine Kinase CK-MB (CK-2) CK-MB (CK-2) Rel Index Troponin I B-Natriuretic Peptide 821 H Total Protein Albumin Globulin Albumin/Globulin Ratio Procalcitonin Urine Color Urine Appearance Urine pH Ur Specific [place] Urine Protein Urine Glucose (UA) Urine Ketones Urine Occult Blood Urine Nitrate Urine Bilirubin Urine Urobilinogen Ur Leukocyte Esterase Urine RBC Urine WBC Urine Bacteria Hyaline Casts Ur Culture Indicated? C. difficile Tox (PCR) Influenza A & B (PCR) 08/13/18 08/13/18 08/13/18 12:25 12:25 12:25 WBC 14.3 H RBC 2.50 L Hgb 8.7 L Hct 25.5 L MCV 102.1 H MCH 35.0 H MCHC 34.3 RDW 17.2 H Plt Count 298 Neut % (Auto) Not Reportable Lymph % (Auto) Not Reportable Trinity % (Auto) Not Reportable Eos % (Auto) Not Reportable Baso % (Auto) Not Reportable Lymph # (Auto) Not Reportable Trinity # (Auto) Not Reportable Baso # (Auto) Not Reportable Total Counted 100 Seg Neutrophils % 92.0 H Band Neutrophils % 2.0 L Lymphocytes % (Manual) 2.0 L Atypical Lymphs % 1.0 H Monocytes % (Manual) 3.0 Neutrophils # (Manual) 06018 H RBC Morphology See below Poikilocytosis 2+ H Anisocytosis 1+ H Macrocytosis 1+ H Ovalocytes 2+ H PT 28.1 H D INR 2.4 H ABG pH ABG pCO2 ABG pO2 ABG HCO3 ABG Total CO2 ABG O2 Saturation ABG Base Excess FiO2 Sodium 136 L Potassium 4.7 Chloride 101 Carbon Dioxide 28 BUN 30 H Creatinine 1.10 Estimated GFR > 60.0 BUN/Creatinine Ratio 27.3 H Glucose 148 H Lactate Calcium 7.9 L Magnesium 1.9 Total Bilirubin 0.4 AST 35 ALT 35 Alkaline Phosphatase 77 Total Creatine Kinase 24 L CK-MB (CK-2) TNP CK-MB (CK-2) Rel Index TNP Troponin I < 0.012 B-Natriuretic Peptide Total Protein 5.9 L Albumin 2.8 L Globulin 3.1 Albumin/Globulin Ratio 0.9 L Procalcitonin Urine Color Urine Appearance Urine pH Ur Specific [place] Urine Protein Urine Glucose (UA) Urine Ketones Urine Occult Blood Urine Nitrate Urine Bilirubin Urine Urobilinogen Ur Leukocyte Esterase Urine RBC Urine WBC Urine Bacteria Hyaline Casts Ur Culture Indicated? C. difficile Tox (PCR) Influenza A & B (PCR) 08/13/18 08/13/18 08/13/18 12:25 12:25 13:30 WBC RBC Hgb Hct MCV MCH MCHC RDW Plt Count Neut % (Auto) Lymph % (Auto) Trinity % (Auto) Eos % (Auto) Baso % (Auto) Lymph # (Auto) [place] # (Auto) Baso # (Auto) Total Counted Seg Neutrophils % Band Neutrophils % Lymphocytes % (Manual) Atypical Lymphs % Monocytes % (Manual) Neutrophils # (Manual) RBC Morphology Poikilocytosis Anisocytosis Macrocytosis Ovalocytes PT INR ABG pH ABG pCO2 ABG pO2 ABG HCO3 ABG Total CO2 ABG O2 Saturation ABG Base Excess FiO2 Sodium Potassium Chloride Carbon Dioxide BUN Creatinine Estimated GFR BUN/Creatinine Ratio Glucose Lactate Calcium Magnesium Total Bilirubin AST ALT Alkaline Phosphatase Total Creatine Kinase CK-MB (CK-2) CK-MB (CK-2) Rel Index Troponin I B-Natriuretic Peptide Total Protein Albumin Globulin Albumin/Globulin Ratio Procalcitonin 0.15 Urine Color Urine Appearance Urine pH Ur Specific [place] Urine Protein Urine Glucose (UA) Urine Ketones Urine Occult Blood Urine Nitrate Urine Bilirubin Urine Urobilinogen Ur Leukocyte Esterase Urine RBC Urine WBC Urine Bacteria Hyaline Casts Ur Culture Indicated? C. difficile Tox (PCR) Negative for c. diff Influenza A & B (PCR) Negative 08/13/18 13:39 WBC RBC Hgb Hct MCV MCH MCHC RDW Plt Count Neut % (Auto) Lymph % (Auto) [place] % (Auto) Eos % (Auto) Baso % (Auto) Lymph # (Auto) [place] # (Auto) Baso # (Auto) Total Counted Seg Neutrophils % Band Neutrophils % Lymphocytes % (Manual) Atypical Lymphs % Monocytes % (Manual) Neutrophils # (Manual) RBC Morphology Poikilocytosis Anisocytosis Macrocytosis Ovalocytes PT INR ABG pH ABG pCO2 ABG pO2 ABG HCO3 ABG Total CO2 ABG O2 Saturation ABG Base Excess FiO2 Sodium Potassium Chloride Carbon Dioxide BUN Creatinine Estimated GFR BUN/Creatinine Ratio Glucose Lactate Calcium Magnesium Total Bilirubin AST ALT Alkaline Phosphatase Total Creatine Kinase CK-MB (CK-2) CK-MB (CK-2) Rel Index Troponin I B-Natriuretic Peptide Total Protein Albumin Globulin Albumin/Globulin Ratio Procalcitonin Urine Color Yellow Urine Appearance Clear Urine pH 7.0 Ur Specific [place] 1.010 Urine Protein Negative Urine Glucose (UA) Negative Urine Ketones Negative Urine Occult Blood 1+ H Urine Nitrate Negative Urine Bilirubin Negative Urine Urobilinogen 0.2 Ur Leukocyte Esterase Negative Urine RBC 1-5/hpf Urine WBC 0-1/hpf Urine Bacteria Occasional (0-1) Hyaline Casts 1-5/lpf Ur Culture Indicated? Cult not indicated C. difficile Tox (PCR) Influenza A & B (PCR) Assessment & Plan Assessment Narrative: 83-year-old male admitted to the hospital with acute syncope, present on admission suspect related to volume depletion and dehydration Recent pneumonia, present on admission, slowly resolved History of coronary disease, present on admission, Chronic respiratory failure, present on admission COPD, a chronic per, present on admission Anemia of chronic disease, chronic, present on admission Probable congestive heart failure, chronic, present on admission Plan Narrative: Patient reports history of hypotension for some time. Suspect multiple medications together has resulted in significant hypotension. He appears to be mildly volume depleted. Will hold his Lasix this evening. Will hold his lisinopril and hold his metoprolol. Will resume medications tomorrow if his blood pressure improves. Given his history of atrial fibrillation will continue his Coumadin. Will continue his outpatient treatment for COPD. Patient has completed treatment for pneumonia despite chest x-ray which confirms continued multifocal infiltrates. Suspect the patient clinically is improving and the x-ray is somewhat lacking. Patient had C diff obtained in the ER which is still pending. Will arrange for PT OT consultation. Obtain orthostatic blood pressures in the morning. Once the patient is no longer hypotensive anticipate discharge back to half-way facility. The patient is full code and will note that his record accordingly.
--- NOTE | 2018-08-13 17:47 | P.HP_ITS ---
History of Present Illness Date Patient Seen: 08/13/18 Chief complaint: Hypotension Narrative: Patient is an 83-year-old male with a history of COPD, coronary artery disease, atrial fibrillation status post permanent pacemaker placement who was discharged from [facility] 1 week ago after treatment for pneumonia. The patient reports his blood pressures been running low for some time. He was at the [place] [facility] recovering from his hospitalization when he was on the toilet and slumped over. The patient had his blood pressure checked at the time and he was found to have a systolic blood pressure of 60. He was out for about 10 min before he came to. Patient was brought in by medics to the emergency department. He was found to be markedly hypoxic and required several L of oxygen to bring his O2 sat up to 90 percentile range. He was subsequently able to be placed on 2 L of oxygen saturating appropriately. The patient was found to be hypotensive. He was given several L of fluid with improvement of his blood pressure. The patient continues to have a cough. He has had no fever or chills. He reports chronic shortness breath from his COPD. He denies any chest pain or palpitations. He has no headache or blurred vision. He felt somewhat lightheaded and dizzy before passing out. The patient has no hematemesis melena. Red blood per rectum. He has no dysuria hematuria or pyuria. Patient did have some urinary retention in the emergency department and a Wade catheter was placed. Patient describes hallucinations over the past 2 days while at the [place] [facility]. He and his wonder if 1 of his medications could be the culprit. He has improved significantly. His lactic acid was normal. He was admitted to the hospital for treatment of syncope. Patient reports having an episode of diarrhea earlier today. Patient History Medical History COPD (chronic obstructive pulmonary disease) (Acute) Cardiac arrhythmia (Acute) Coronary artery disease (Acute) Pacemaker (Acute) Surgical History History of heart artery stent (Acute) Family & Social History Family History Mother Heart disease Brother Heart disease Safety & Behavioral: Feels Safe in Current Unwilling to Answer Environment Tobacco & Substance use: Substance Use Type does not use Meds Home Medications Medication Instructions Recorded Confirmed Type acetylcysteine 600 mg PO DAILY 08/13/18 08/13/18 History albuterol sulfate 2 puff INHALATION Q4H PRN 08/13/18 08/13/18 History albuterol sulfate 2.5 mg INHALATION Q4H PRN 08/13/18 08/13/18 History ascorbic acid (vitamin C) 500 mg PO DAILY 08/13/18 08/13/18 History atorvastatin 40 mg PO BEDTIME 08/13/18 08/13/18 History bisacodyl 5 - 10 mg PO PRN PRN 08/13/18 08/13/18 History bisacodyl 10 mg HI PRN PRN 08/13/18 08/13/18 History cholecalciferol (vitamin D3) 1,000 unit PO DAILY 08/13/18 08/13/18 History [Vitamin D3] clopidogrel [Plavix] 75 mg PO DAILY 08/13/18 08/13/18 History coenzyme Q10 [CoQ-10] 100 mg PO DAILY 08/13/18 08/13/18 History doxazosin 4 mg PO QPM 08/13/18 08/13/18 History furosemide 40 mg PO DAILY 08/13/18 08/13/18 History ketoconazole 1 applic TOPICAL MOWEFR 08/13/18 08/13/18 History latanoprost 1 drp OPHTHALMIC (EYE) BEDTIME 08/13/18 08/13/18 History lisinopril 5 mg PO DAILY 08/13/18 08/13/18 History magnesium hydroxide [Milk of 30 ml PO PRN PRN 08/13/18 08/13/18 History Magnesia] magnesium oxide 400 mg PO DAILY 08/13/18 08/13/18 History metoprolol tartrate 100 mg PO BID 08/13/18 08/13/18 History mometasone-formoterol [Dulera] 2 puff INHALATION BID 08/13/18 08/13/18 History nitroglycerin 0.4 mg SUBLINGUAL Q5-15M PRN 08/13/18 08/13/18 History saw palmetto 160 mg PO DAILY 08/13/18 08/13/18 History sodium phosphates [Fleet Enema] 1 ea HI PRN PRN 08/13/18 08/13/18 History tiotropium bromide 1 cap INHALATION DAILY 08/13/18 08/13/18 History warfarin 1.5 mg PO MO 08/13/18 08/13/18 History warfarin [Coumadin] 1 mg PO SUTUWETHFRSA 08/13/18 08/13/18 History warfarin [Coumadin] 2 mg PO MO 08/13/18 08/13/18 History Allergies Allergy/AdvReac Type Severity Reaction Status Date / Time codeine Allergy Difficulty Verified 08/13/18 13:17 Breathing Review of Systems Review of Systems All systems reviewed & are unremarkable except as noted in HPI and below Exam Vital Signs (past 8 hours): - 08/13/18 11:53 08/13/18 12:10 08/13/18 12:30 Temperature 96.7 F L Pulse Rate 66 75 81 Respiratory Rate 22 26 H 28 H Blood Pressure 77/41 L Blood Pressure [Left Arm] 85/43 L Blood Pressure [Right Arm] Pulse Oximetry 98 100 95 08/13/18 12:48 08/13/18 12:51 08/13/18 12:57 Temperature Pulse Rate 83 79 83 Respiratory Rate 28 H 30 H 30 H Blood Pressure Blood Pressure [Left Arm] 82/48 L 80/49 L 100/46 L Blood Pressure [Right Arm] Pulse Oximetry 99 99 08/13/18 13:00 08/13/18 13:05 08/13/18 13:42 Temperature Pulse Rate 80 79 Respiratory Rate 23 24 Blood Pressure Blood Pressure [Left Arm] 84/50 L 78/44 L 91/50 L Blood Pressure [Right Arm] Pulse Oximetry 95 97 08/13/18 14:25 08/13/18 15:15 08/13/18 15:50 Temperature Pulse Rate 78 80 80 Respiratory Rate 26 H 22 23 Blood Pressure Blood Pressure [Left Arm] 98/46 L 84/42 L Blood Pressure [Right Arm] 89/48 L Pulse Oximetry 95 97 96 08/13/18 15:55 08/13/18 16:12 Temperature Pulse Rate 82 79 Respiratory Rate 22 18 Blood Pressure Blood Pressure [Left Arm] Blood Pressure [Right Arm] 80/42 L 96/45 L Pulse Oximetry 96 96 Oxygen Delivery Method Nasal Cannula Oxygen Flow Rate 2 Narrative Exam Narrative: Chronically ill-appearing male awake alert and answering que stions appropriately HEENT: Normocephalic atraumatic, extraocular muscles are intact, oropharynx is clear, neck is supple, there is no JVD or adenopathy Lungs: Decreased breath sounds with scattered rhonchi bilaterally Cardiac exam: Regular rate and rhythm normal S1 and S2 with a 2/6 systolic eje ction murmur Abdomen: Soft nontender nondistended without hepatosplenomegaly Extremities: No edema Neuro exam: Nonfocal Psychiatric exam: Patient has no hallucinations or ticks or active delusions. Objective Labs Result Diagrams: 08/13/18 12:25 08/13/18 12:25 Labs: Laboratory Results - last 24 hr 08/13/18 08/13/18 08/13/18 11:55 11:55 12:15 WBC RBC Hgb Hct MCV MCH MCHC RDW Plt Count Neut % (Auto) Lymph % (Auto) [place] % (Auto) Eos % (Auto) Baso % (Auto) Lymph # (Auto) [place] # (Auto) Baso # (Auto) Total Counted Seg Neutrophils % Band Neutrophils % Lymphocytes % (Manual) Atypical Lymphs % Monocytes % (Manual) Neutrophils # (Manual) RBC Morphology Poikilocytosis Anisocytosis Macrocytosis Ovalocytes PT INR ABG pH 7.41 ABG pCO2 38.2 ABG pO2 128 H ABG HCO3 24 ABG Total CO2 25 ABG O2 Saturation 99 ABG Base Excess 0.0 FiO2 100 Sodium Potassium Chloride Carbon Dioxide BUN Creatinine Estimated GFR BUN/Creatinine Ratio Glucose Lactate 1.8 Calcium Magnesium Total Bilirubin AST ALT Alkaline Phosphatase Total Creatine Kinase CK-MB (CK-2) CK-MB (CK-2) Rel Index Troponin I B-Natriuretic Peptide 821 H Total Protein Albumin Globulin Albumin/Globulin Ratio Procalcitonin Urine Color Urine Appearance Urine pH Ur Specific [place] Urine Protein Urine Glucose (UA) Urine Ketones Urine Occult Blood Urine Nitrate Urine Bilirubin Urine Urobilinogen Ur Leukocyte Esterase Urine RBC Urine WBC Urine Bacteria Hyaline Casts Ur Culture Indicated? C. difficile Tox (PCR) Influenza A & B (PCR) 08/13/18 08/13/18 08/13/18 12:25 12:25 12:25 WBC 14.3 H RBC 2.50 L Hgb 8.7 L Hct 25.5 L MCV 102.1 H MCH 35.0 H MCHC 34.3 RDW 17.2 H Plt Count 298 Neut % (Auto) Not Reportable Lymph % (Auto) Not Reportable [place] % (Auto) Not Reportable Eos % (Auto) Not Reportable Baso % (Auto) Not Reportable Lymph # (Auto) Not Reportable [place] # (Auto) Not Reportable Baso # (Auto) Not Reportable Total Counted 100 Seg Neutrophils % 92.0 H Band Neutrophils % 2.0 L Lymphocytes % (Manual) 2.0 L Atypical Lymphs % 1.0 H Monocytes % (Manual) 3.0 Neutrophils # (Manual) 03736 H RBC Morphology See below Poikilocytosis 2+ H Anisocytosis 1+ H Macrocytosis 1+ H Ovalocytes 2+ H PT 28.1 H D INR 2.4 H ABG pH ABG pCO2 ABG pO2 ABG HCO3 ABG Total CO2 ABG O2 Saturation ABG Base Excess FiO2 Sodium 136 L Potassium 4.7 Chloride 101 Carbon Dioxide 28 BUN 30 H Creatinine 1.10 Estimated GFR > 60.0 BUN/Creatinine Ratio 27.3 H Glucose 148 H Lactate Calcium 7.9 L Magnesium 1.9 Total Bilirubin 0.4 AST 35 ALT 35 Alkaline Phosphatase 77 Total Creatine Kinase 24 L CK-MB (CK-2) TNP CK-MB (CK-2) Rel Index TNP Troponin I < 0.012 B-Natriuretic Peptide Total Protein 5.9 L Albumin 2.8 L Globulin 3.1 Albumin/Globulin Ratio 0.9 L Procalcitonin Urine Color Urine Appearance Urine pH Ur Specific [place] Urine Protein Urine Glucose (UA) Urine Ketones Urine Occult Blood Urine Nitrate Urine Bilirubin Urine Urobilinogen Ur Leukocyte Esterase Urine RBC Urine WBC Urine Bacteria Hyaline Casts Ur Culture Indicated? C. difficile Tox (PCR) Influenza A & B (PCR) 08/13/18 08/13/18 08/13/18 12:25 12:25 13:30 WBC RBC Hgb Hct MCV MCH MCHC RDW Plt Count Neut % (Auto) Lymph % (Auto) [place] % (Auto) Eos % (Auto) Baso % (Auto) Lymph # (Auto) [place] # (Auto) Baso # (Auto) Total Counted Seg Neutrophils % Band Neutrophils % Lymphocytes % (Manual) Atypical Lymphs % Monocytes % (Manual) Neutrophils # (Manual) RBC Morphology Poikilocytosis Anisocytosis Macrocytosis Ovalocytes PT INR ABG pH ABG pCO2 ABG pO2 ABG HCO3 ABG Total CO2 ABG O2 Saturation ABG Base Excess FiO2 Sodium Potassium Chloride Carbon Dioxide BUN Creatinine Estimated GFR BUN/Creatinine Ratio Glucose Lactate Calcium Magnesium Total Bilirubin AST ALT Alkaline Phosphatase Total Creatine Kinase CK-MB (CK-2) CK-MB (CK-2) Rel Index Troponin I B-Natriuretic Peptide Total Protein Albumin Globulin Albumin/Globulin Ratio Procalcitonin 0.15 Urine Color Urine Appearance Urine pH Ur Specific [place] Urine Protein Urine Glucose (UA) Urine Ketones Urine Occult Blood Urine Nitrate Urine Bilirubin Urine Urobilinogen Ur Leukocyte Esterase Urine RBC Urine WBC Urine Bacteria Hyaline Casts Ur Culture Indicated? C. difficile Tox (PCR) Negative for c. diff Influenza A & B (PCR) Negative 08/13/18 13:39 WBC RBC Hgb Hct MCV MCH MCHC RDW Plt Count Neut % (Auto) Lymph % (Auto) [place] % (Auto) Eos % (Auto) Baso % (Auto) Lymph # (Auto) [place] # (Auto) Baso # (Auto) Total Counted Seg Neutrophils % Band Neutrophils % Lymphocytes % (Manual) Atypical Lymphs % Monocytes % (Manual) Neutrophils # (Manual) RBC Morphology Poikilocytosis Anisocytosis Macrocytosis Ovalocytes PT INR ABG pH ABG pCO2 ABG pO2 ABG HCO3 ABG Total CO2 ABG O2 Saturation ABG Base Excess FiO2 Sodium Potassium Chloride Carbon Dioxide BUN Creatinine Estimated GFR BUN/Creatinine Ratio Glucose Lactate Calcium Magnesium Total Bilirubin AST ALT Alkaline Phosphatase Total Creatine Kinase CK-MB (CK-2) CK-MB (CK-2) Rel Index Troponin I B-Natriuretic Peptide Total Protein Albumin Globulin Albumin/Globulin Ratio Procalcitonin Urine Color Yellow Urine Appearance Clear Urine pH 7.0 Ur Specific [place] 1.010 Urine Protein Negative Urine Glucose (UA) Negative Urine Ketones Negative Urine Occult Blood 1+ H Urine Nitrate Negative Urine Bilirubin Negative Urine Urobilinogen 0.2 Ur Leukocyte Esterase Negative Urine RBC 1-5/hpf Urine WBC 0-1/hpf Urine Bacteria Occasional (0-1) Hyaline Casts 1-5/lpf Ur Culture Indicated? Cult not indicated C. difficile Tox (PCR) Influenza A & B (PCR) Assessment & Plan Assessment Narrative: 83-year-old male admitted to the hospital with acute syncope, present on admission suspect related to volume depletion and dehydration Recent pneumonia, present on admission, slowly resolved History of coronary disease, present on admission, Chronic respiratory failure, present on admission COPD, a chronic per, present on admission Anemia of chronic disease, chronic, present on admission Probable congestive heart failure, chronic, present on admission Plan Narrative: Patient reports history of hypotension for some time. Suspect multiple medications together has resulted in significant hypotension. He appears to be mildly volume depleted. Will hold his Lasix this evening. Will hold his lisinopril and hold his metoprolol. Will resume medications tomorrow if his blood pressure improves. Given his history of atrial fibrillation will continue his Coumadin. Will continue his outpatient treatment for COPD. Patient has completed treatment for pneumonia despite chest x-ray which confirms continued multifocal infiltrates. Suspect the patient clinically is improving and the x-ray is somewhat lacking. Patient had C diff obtained in the ER which is still pending. Will arrange for PT OT consultation. Obtain orthostatic blood pressures in the morning. Once the patient is no longer hypotensive anticipate discharge back to care home facility. The patient is full code and will note that his record accordingly.
[2018-08-13] MEDS: WARFARIN 1 MG TABLET PO (19:05)
[2018-08-13] MEDS: SODIUM CHLORIDE 0.45% 1,000 ML 100 ML IV (19:06)
[2018-08-13 19:21] LABS: Add Manual Diff / Slide Review NO; Basophils Absolute Auto 0 /uL (0-100); Basophils Percent Auto 0.4 % (0-2); Eosinophils Absolute Auto 100 /uL (0-450); Eosinophils Percent Auto 0.4 % (2-4); Hematocrit 27.5 % (41-53); Hemoglobin 8.9 g/dL (13.5-17.5); Lymphocytes Absolute Auto 900 /uL (1100-4500); Lymphocytes Percent Auto 6.7 % (25-40); Mean Corpuscular HGB Conc 32.3 % (30-36); Mean Corpuscular Hemoglobin 35.2 PG (26-34); Mean Corpuscular Volume 108.9 fL (80-100); Monocytes Absolute Auto 1100 /uL (0-900); Neutrophils Absolute Auto 11900 /uL (1500-7000); Neutrophils Percent Auto 84.5 % (50-75); Platelet Count 309 X10^3/uL (150-400); Red Blood Cell Count 2.52 X10^6/uL (4.5-5.9); Red Cell Distribution Width 18.1 % (11.6-14.8); White Blood Cell Count 14.1 X10^3/uL (4.5-11.0)
[2018-08-13 19:51] LABS: Blood Urea Nitrogen 28 mg/dL (9-20); Calcium 8.2 mg/dL (8.4-10.2); Carbon Dioxide 26 mmol/L (22-32); Chloride 103 mmol/L (98-107); Estimated Glomerular Filt Rate > 60.0 mL/min (>60); Glucose 125 mg/dL (80-110); HEMOLYSIS < 15 (0-50); Potassium 3.7 mmol/L (3.4-5.1); Sodium 137 mmol/L (137-145)
[2018-08-13] MEDS: FLUTICASONE/SALMETEROL 500/50 14 PUFF DISKUS INH (20:30)
[2018-08-13] MEDS: LATANOPROST 0.005% OPHTH 2.5 ML 1 DROPS EYE-LEFT (21:36)
[2018-08-13] MEDS: ATORVASTATIN 20 MG TABLET 40 MG PO (21:36)
--- NOTE | 2018-08-13 22:23 | PC.ADMIT ---
admission- pt arrive to floor via stretcher. Pt awake and alert but very sleepy. fluids started per order. youssef patent. Pt uses call light. alert and oriented arouses to voice. didnt feel like dinner. has scratched/healing scabs to neymar legs/knees/shins from fall three weeks ago. Pt on 2L NC tolerating. states he is on this at home. bp still very low. will continue to monitor pt for safety. no diarrhea after arrival to unit.
[2018-08-14] VITALS (10 sets, daily range): BP systolic 96–106; BP diastolic 51–62; PULSE 95–115; RESP 18–20; TEMP 36.3–36.8; O2SAT 91–97
[2018-08-14] MEDS: FLUTICASONE/SALMETEROL 500/50 14 PUFF DISKUS INH (04:02)
[2018-08-14] MEDS: TIOTROPIUM BROMIDE 18 MCG INHALER INH (04:02)
[2018-08-14] MEDS: ALBUTEROL/IPRATROPIUM 3 ML AMPUL INH ×3 (04:03→19:25)
[2018-08-14] MEDS: SODIUM CHLORIDE 0.45% 1,000 ML 100 ML IV (05:14)
--- NOTE | 2018-08-14 06:13 | PC.NURSE ---
0400 Rechecked SPO2 after he wakes up, only 90-91%. RT. was here & notified, treatment was administered & increased 02 to 3 liters, sat. 92%. Denies any dizziness & no C/O CP & other discomfort, will cont. POC & monitor.
[2018-08-14] MEDS: SODIUM CHLORIDE 0.9% FLUSH 10 ML IV (08:32)
[2018-08-14] MEDS: CHOLECALCIFEROL (VITAMIN D3) 1,000 UNIT TABLET 1000 UNIT PO (08:32)
[2018-08-14] MEDS: CLOPIDOGREL 75 MG TABLET PO (08:32)
--- NOTE | 2018-08-14 14:54 | PM.PN.1 ---
Subjective Date Patient Seen: 08/14/18 Interval history: Chart reviewed patient seen and examined. Patient has had no further syncopal episodes. His breathing is at baseline he has no chest pain. He has no cough. Patient feels significantly improved. He was able to sleep very well last night. Patient reports he completed antibiotic treatment for his pneumonia while at [facility]. Exam Vital Signs (past 8 hours): - 08/14/18 08:00 08/14/18 08:25 Temperature 97.4 F L Pulse Rate 111 H Respiratory Rate 20 Blood Pressure 97/57 L Pulse Oximetry 94 94 Oxygen Delivery Method Nasal Cannula Oxygen Flow Rate 3 Narrative Exam Narrative: Chronically ill-appearing male in no obvious distress Lungs: Decreased breath sounds bilaterally with occasional scattered rhonchi Cardiac exam irregularly irregular normal S1-S2 Abdomen: Soft nontender nondistended Extremities: No edema, multiple abrasions healing on the right lower extremity Objective Labs Result Diagrams: 08/13/18 19:00 08/13/18 19:00 Labs: Laboratory Results - last 24 hr 08/13/18 08/13/18 19:00 19:00 WBC 14.1 H RBC 2.52 L Hgb 8.9 L Hct 27.5 L MCV 108.9 H D MCH 35.2 H MCHC 32.3 RDW 18.1 H Plt Count 309 Neut % (Auto) 84.5 H Lymph % (Auto) 6.7 L [place] % (Auto) 8.0 Eos % (Auto) 0.4 L Baso % (Auto) 0.4 Neut # (Auto) 18960 H Lymph # (Auto) 900 L [place] # (Auto) 1100 H Eos # (Auto) 100 Baso # (Auto) 0 Sodium 137 Potassium 3.7 Chloride 103 Carbon Dioxide 26 BUN 28 H Creatinine 1.00 Estimated GFR > 60.0 BUN/Creatinine Ratio 28.0 H Glucose 125 H Calcium 8.2 L Assessment & Plan Assessment Narrative: 1. Syncope, etiology unclear, present on admission, acute suspect secondary to hypotension from multiple medication no recurrence 2. Pneumonia, resolved 3. Coronary artery disease, chronic 4. Chronic hypoxemic respiratory failure, present on admission 5. COPD, chronic 6. Anemia of chronic disease, chronic 7. Congestive heart failure, etiology unclear 8. Atrial fibrillation, chronic, present on admission Plan Narrative: Will discontinue IV hydration at this time. Will resume metoprolol at 12.5 twice daily instead of 100 twice daily. In addition will recheck labs in the morning. Will continue oxygen. Anticipate discharge back to the longterm unit tomorrow. Quality VTE Deep Vein Thrombosis/Pulmonary Embolism Present on Admission: No
--- NOTE | 2018-08-14 14:57 | P.PN_ITS ---
Subjective Date Patient Seen: 08/14/18 Interval history: Chart reviewed patient seen and examined. Patient has had no further syncopal episodes. His breathing is at baseline he has no chest pain. He has no cough. Patient feels significantly improved. He was able to sleep very well last night. Patient reports he completed antibiotic treatment for his pneumonia while at [facility]. Exam Vital Signs (past 8 hours): - 08/14/18 08:00 08/14/18 08:25 Temperature 97.4 F L Pulse Rate 111 H Respiratory Rate 20 Blood Pressure 97/57 L Pulse Oximetry 94 94 Oxygen Delivery Method Nasal Cannula Oxygen Flow Rate 3 Narrative Exam Narrative: Chronically ill-appearing male in no obvious distress Lungs: Decreased breath sounds bilaterally with occasional scattered rhonchi Cardiac exam irregularly irregular normal S1-S2 Abdomen: Soft nontender nondistended Extremities: No edema, multiple abrasions healing on the right lower extremity Objective Labs Result Diagrams: 08/13/18 19:00 08/13/18 19:00 Labs: Laboratory Results - last 24 hr 08/13/18 08/13/18 19:00 19:00 WBC 14.1 H RBC 2.52 L Hgb 8.9 L Hct 27.5 L MCV 108.9 H D MCH 35.2 H MCHC 32.3 RDW 18.1 H Plt Count 309 Neut % (Auto) 84.5 H Lymph % (Auto) 6.7 L [place] % (Auto) 8.0 Eos % (Auto) 0.4 L Baso % (Auto) 0.4 Neut # (Auto) 79613 H Lymph # (Auto) 900 L [place] # (Auto) 1100 H Eos # (Auto) 100 Baso # (Auto) 0 Sodium 137 Potassium 3.7 Chloride 103 Carbon Dioxide 26 BUN 28 H Creatinine 1.00 Estimated GFR > 60.0 BUN/Creatinine Ratio 28.0 H Glucose 125 H Calcium 8.2 L Assessment & Plan Assessment Narrative: 1. Syncope, etiology unclear, present on admission, acute suspect secondary to hypotension from multiple medication no recurrence 2. Pneumonia, resolved 3. Coronary artery disease, chronic 4. Chronic hypoxemic respiratory failure, present on admission 5. COPD, chronic 6. Anemia of chronic disease, chronic 7. Congestive heart failure, etiology unclear 8. Atrial fibrillation, chronic, present on admission Plan Narrative: Will discontinue IV hydration at this time. Will resume metoprolol at 12.5 twice daily instead of 100 twice daily. In addition will recheck labs in the morning. Will continue oxygen. Anticipate discharge back to the custodial unit tomorrow. Quality VTE Deep Vein Thrombosis/Pulmonary Embolism Present on Admission: No
--- NOTE | 2018-08-14 15:27 | PC.NURSE ---
Day shift- Alerted by [employer] that minimal urine in youssef and brief was soaked around catheter. bladder scan was performed, 44ml in bladder. Spoke with MD and order to remove youssef. This was done, there was a blood clot in the catheter. Pt urinated 25 ml within 20 min of youssef removal. BP dropped after walking with PT, notified MD and she stopped BP meds. PIV SL per MD order. hourly rounding provided, call light within reach.
--- NOTE | 2018-08-14 15:49 | PT.IIE ---
Surgical History (Last Reviewed 08/13/18 @ 17:42 by Jana Ang MD) History of heart artery stent (Acute) Medical History (Last Reviewed 08/13/18 @ 17:42 by Jana Ang MD) COPD (chronic obstructive pulmonary disease) (Acute) Cardiac arrhythmia (Acute) Coronary artery disease (Acute) Pacemaker (Acute) Physical Therapy Inpatient Evaluation/Re-Eval M1 PT/OT-IP Prior Functional Status Start: 08/14/18 11:53 Freq: NEEDED Status: Active Protocol: Document 08/14/18 15:41 [facility] (Rec: 08/14/18 15:49 [facility] [id number]) Medical Review Prior Functional Status Medical History Reviewed Yes Diet/Fluid Consistency Regular Communication WNL Mobility and Gait Amb w/o AD prior to admission to [facility] over a week ago. He went to rehab for 6 days and was admitted to hospital d/t LOC when sitting in W/C. He was working on short bouts of gait at [facility] Activities of Daily Living and IADL's indep except gagandeepd dr him off before going to rehab Social History Household Members spouse Living Arrangements House Number of Floors (Floors) One Floor Number of Stairs To Enter/Railing? 9 ATA w/rail Home Environment Standard Height Toilet Walk in Shower Home Equipment Front Wheel Walker Shower Seat without Backrest Employment Status Retired M2 PT-IP Current Condition Start: 08/14/18 11:53 Freq: NEEDED Status: Active Protocol: Document 08/14/18 15:41 [facility] (Rec: 08/14/18 15:49 [facility] [id number]) Physical Therapy Current Condition Current Condition Evaluation Date 08/14/18 Treatment Diagnosis hypotension, weakness Precautions Other Precautions check BP Weight Bearing Status Weight Bearing Status Weight Bear as Tolerated M3 PT-IP Subjective Start: 08/14/18 11:53 Freq: NEEDED Status: Active Protocol: Document 08/14/18 15:41 [facility] (Rec: 08/14/18 15:49 [facility] [id number]) Subjective Physical Therapy Visit Type Type Initial Evaluation Visit Start Time 14:20 Visit Stop Time 14:50 Total Visit Minutes 30 Number of SOLVENT PLANT TREATER Visits 0 Physical Therapy Visit Comments Patient Comments Pt agreeabl eto get up. Reports he would like to be able to go home [facility]. can help him at home. M4 PT-IP Mobility and Gait Start: 08/14/18 11:53 Freq: NEEDED Status: Active Protocol: Document 08/14/18 15:41 [facility] (Rec: 08/14/18 15:49 [facility] [id number]) PT-Bed Mobility Assessment Supine to Sit Supine to Sit Independent Head of Bed Elevated Sit to Supine Sit to Supine Standby Assistance Scooting Scooting to Edge of Bed Standby Assistance Scooting Up and Down in Bed Standby Assistance PT-Transfer Assessment Sit to and From Stand Sit to and from Stand Contact Guard Assistance Use of Upper Extremities Equipment Transfer Assistive Device Gait Belt Front Wheeled Walker Orthotic/Prosthetic Devices or Brace: No Comments Mobility Comments Pt stood and amb around bed. Seated BP 83/54, after 2 min 98/53, standing 99/42, afte ramb around bed 80/49 Gait Assessment Gait Gait Assistance Required: Contact Guard Assist Distance (Feet) 10 Assistive Devices Assistive Device Gait Belt Front Wheeled Walker Orthotic/Prosthetic Devices or Brace: No Gait Deviations General Gait Pattern Flexed Trunk Factors Limiting Gait Function Factors Limiting Gait Function Decreased Strength Poor Balance Comments Gait Comments pt able to amb around bed slowly but reported lightheadedness so sat down and returned to bed. 92% on 2 L O2 PT-Balance Assessment Sitting Balance and Reactions Static Sitting Balance Ability Good Dynamic Sitting Balance Ability Fair Standing Balance and Reactions Static Standing Balance Ability Fair Dynamic Standing Balance Ability Fair Device Used FWW M5 PT-IP Objective Assessments Start: 08/14/18 11:53 Freq: NEEDED Status: Active Protocol: Document 08/14/18 15:41 [facility] (Rec: 08/14/18 15:49 [facility] [id number]) Orientation Orientation/Cognition Level of Alertness Alert Strength Lower Extremity Strength Assessment Bilaterally Impaired M7 PT-IP Assessment and Plan Start: 08/14/18 11:53 Freq: NEEDED Status: Active Protocol: Document 08/14/18 15:41 [facility] (Rec: 08/14/18 15:49 [facility] [id number]) PT Summary Assessment and Plan Potential Rehabilitation Potential Good Status of Condition at Evaluation Unstable Summary Impairments Strength Balance Transfers Gait Assessment Summary Pt presents with hypotension with dec ability to mobilize d /t lightheadedness and dizziness which is related to dec BP. Pt is very motivated to mobilize and is cooperative with therapy, making him a good rehab candidate. pt would prefer to go home from hospital, but at this time, would be unsafe to return home . Goals Bed Mobility Goal Independent Transfer Goal Independent Gait Goal Standby Assistance Gait Distance 150 Other Goals up/down 9 steps with rail Days to Meet Goals 4 Treatment Plan Physical Therapy Treatment Plan Bed Mobility Training Transfer Training Gait Training Therapeutic Exercise Balance Retraining Discharge Planning Neuromuscular Re-ed Other Recommendations and Next Treatment Advance gait & standing Focus balance as tolerated Recommendations To Nursing Amount of Assist Needed 1 Person Assist Discharge Recommendations PT Discharge Recommendations SNF Rehab
--- NOTE | 2018-08-14 16:32 | OT.IP.EVAL ---
Past Medical History (Last Reviewed 08/13/18 @ 17:42 by Jana Ang MD) COPD (chronic obstructive pulmonary disease) (Acute) Cardiac arrhythmia (Acute) Coronary artery disease (Acute) Pacemaker (Acute) Surgical History (Last Reviewed 08/13/18 @ 17:42 by Jana Ang MD) History of heart artery stent (Acute) Occupational Therapy Inpatient Evaluation/Re-Eval M1 PT/OT-IP Prior Functional Status Start: 08/14/18 11:53 Freq: NEEDED Status: Active Protocol: Document 08/14/18 16:32 [facility] (Rec: 08/14/18 18:07 [facility] [id number]) Medical Review Prior Functional Status Medical History Reviewed Yes Diet/Fluid Consistency Regular Communication WNL Mobility and Gait Amb w/o AD prior to admission to [facility] for pneumonia over a week ago. He went to rehab for 6 days and was admitted to hospital due to syncopal episode when sitting in W/C. He was working on short distance gait at [employer] . Activities of Daily Living and IADL's Pt states he was independent with eating, grooming, dressing, toileting and medication management prior to pneumonia. His helped him dry off after shower. Prior Functional Level (Other details) Pt's does all IADLS and driving. Pt on 3L O2 at home. Social History Household Members spouse Living Arrangements House Number of Floors (Floors) One Floor Number of Stairs To Enter/Railing? 9 stairs to enter with rail Home Environment Standard Height Toilet Walk in Shower Home Equipment Front Wheel Walker Shower Seat with Backrest Grab Bars In Shower Employment Status Retired M2 OT-IP Current Condition Start: 08/14/18 17:49 Freq: Status: Active Protocol: Document 08/14/18 16:32 [facility] (Rec: 08/14/18 18:07 [facility] [id number]) Occupational Therapy Current Condition Current Condition Evaluation Date 08/14/18 Treatment Diagnosis decreased indep in self care, functional mobility due to hypotension Diagnosis Onset Date 08/13/18 Post Operative Precautions Other Precautions monitor BP, 3L O2 M3 OT- IP Subjective and Pain Start: 08/14/18 17:49 Freq: Status: Active Protocol: Document 08/14/18 16:32 [facility] (Rec: 08/14/18 18:07 [facility] [id number]) OT- Subjective Occupational Therapy Visit Type Type Initial Evaluation Visit Start Time 16:01 Visit Stop Time 16:32 Total Visit Minutes 31 Notes Orthostatics: supine: 102/57 HR 103 sitting EOB: 107/56 HR 111 standin/42 HR 111 (mild dizziness) sitting EOB: 87/57 HR 116 supine: 90/60 HR 104 Pt has fragile dry skin with multiple small bruises and abrasions noted on B arms and B legs. Occupational Therapy Visit Comments Patient Comments I think I will need to get a little stronger before I go home. Patient/Caregiver Goals to return to prior level of independence at home OT Pain Assessment Pain When Pain Assessed After Treatment Pain Present Pain Present Denied Pain M4 OT- IP ADL's Start: 08/14/18 17:49 Freq: Status: Active Protocol: Document 08/14/18 16:32 [facility] (Rec: 08/14/18 18:07 [facility] [id number]) OT [id number] General Evaluation Self-Feeding Ability Independent OT ADL-Grooming General Evaluation Grooming Ability Standby Assistance Areas Needing Assistance Face Washing Comments OT Grooming Comments after set up seated EOB OT ADL-Oral Care Comments Oral Care Comments to be assessed OT ADL-Dressing Comments OT Dressing Comments unable to assess as pt became orthostatic and needed to return to supine OT ADL-Toileting General Evaluation Toileting Ability Standby Assistance Devices Toileting Assistive Devices Urinal Comments OT Toileting Comments pt able to use urinal in bed OT ADL-Bathing Comments OT Bathing Comments to be assessed as activity tolerance improves M5 OT- IP IADL's Start: 08/14/18 17:49 Freq: Status: Active Protocol: Document 08/14/18 16:32 [facility] (Rec: 08/14/18 18:07 [facility] [id number]) OT-Instrumental Activities of Daily Living Deficits IADL Deficits Identified Deficits Home Safety Awareness Awareness of Need for Assistance at Home Good Awareness Medication Management Medication Management No Deficits Identified Money Management Money Management Caregiver Provides Assistance Meal Preparation Meal Preparation Caregiver Provides Assist Bilingual Loan Processor Bilingual Loan Processor Caregiver Provides Assist Driving Driving Caregiver Provides Assist M6 OT- IP Functional Cognition Start: 08/14/18 17:49 Freq: Status: Active Protocol: Document 08/14/18 16:32 [facility] (Rec: 08/14/18 18:07 [facility] [id number]) Cognitive Factors Limiting Selfcare Function Cognitive Ability Level of Alertness Alert Patient Orientation Name Place Situation Attention Span Ability Capable of Focused Attention Ability to Follow Commands Able to Follow One Step Commands Cognitive Comments Cognitive Assessment Comments Pt alert with good participation and effort this session. He recalls recent events. OT- Vision and Hearing OT- Hearing Assessment OT- Hearing Assessment WFL OT- Vision Assessment Visual Acuity WFL Vision Assessment Comments Pt denies any recent vision changes M7 OT- IP Mobility and Balance Start: 08/14/18 17:49 Freq: Status: Active Protocol: Document 08/14/18 16:32 [facility] (Rec: 08/14/18 18:07 [facility] [id number]) OT- Bed Mobility Assessment Rolling Type of Rolling Roll to Left Level of Assistance Standby Assistance Head of Bed Elevated Supine to Sit Supine to Sit Assist Standby Assistance Head of Bed Elevated Sit to Supine Sit to Supine Assist Standby Assistance Head of Bed Elevated Scooting Scooting to Edge of Bed Standby Assistance OT-Transfer Assessment Sit to and From Stand Sit to and from Stand Contact Guard Assistance Devices Transfer Assistive Devices Gait Belt Front Wheeled Walker Comments Mobility Comments Pt has power bed at home. Did not proceed with transfer to chair as pt became orthostatic . OT- Gait Assessment Comments Gait Ability Comments did not occur, see P.T. notes OT- Balance Assessment Sitting Balance and Reactions Static Sitting Balance Ability Good Standing Balance and Reactions Static Standing Balance Ability Good M8 OT- IP Objective Assessments Start: 08/14/18 17:49 Freq: Status: Active Protocol: Document 08/14/18 16:32 [facility] (Rec: 08/14/18 18:07 [facility] NRTM) OT Gross Range of Motion Upper Extremity Range of Motion Assessment Within Functional Limits OT Strength Upper Extremity Strength Assessment Within Functional Limits OT- Coordination Assessment Comments Coordination Comments BUE WFL per pt OT-Muscle Tone Assessment Muscle Tone WNL Yes OT Sensation Assessment Comments Summary Comments WNL BUE per pt Edema Edema Absent M9 OT- IP Assessment and Plan Start: 08/14/18 17:49 Freq: Status: Active Protocol: Document 08/14/18 16:32 [facility] (Rec: 08/14/18 18:07 [facility] [id number]) OT Summary Assessment and Plan Potential Rehabilitation Potential Good Analytic Complexity at Evaluation Low Summary OT Impairments Strength Functional Mobility Grooming Dressing Toileting Bathing Toilet Transfers Shower Transfers Assessment Summary Pt seen for low complexity assessment with emphasis on self care skills as limited by orthostatic hypotension this session. He is slow to recover even when he returns to supine. Pt currently is below his baseline level of function with performance deficits in activity tolerance due to dizziness/hypotension which results in decreased independence in standing grooming, dressing, bathing and toileting, and all functional mobility. Pt will benefit from OT services here to address the goals below. Recommend pt return to SNF at d/c to complete his rehab stay prior to returning home with . Goals Grooming Goal Standby Assistance Dressing Goal Standby Assistance Toileting Goal Standby Assistance Bathing Goal Minimal Assistance Toilet Transfer Goal Standby Assistance Shower Transfer Goal Contact Guard Assistance Patient/Caregiver Education Goal Demonstrate Energy Conservation and Pacing Days to Meet Goals 5 Frequency of Treatment Frequency Of Treatment Once a Day Treatment Plan OT Treatment Plan ADL Training Functional Mobility Patient/Family Education Discharge Planning Discharge Recommendations OT Discharge Recommendations SNF Rehab Home Equipment Needs to be determined in next rehab setting
[2018-08-14] MEDS: WARFARIN 1 MG TABLET PO (17:30)
[2018-08-14 18:28] LABS: HEMOLYSIS < 15 (0-50); Iron 41 ug/dL (49-181)
[2018-08-14 18:38] LABS: Percent Iron Saturation 18 % (20-50); Total Iron Binding Capacity 230 ug/dL (261-462); Transferrin 153 mg/dL (206-381)
[2018-08-14] MEDS: ATORVASTATIN 20 MG TABLET 40 MG PO (21:03)
[2018-08-14] MEDS: LATANOPROST 0.005% OPHTH 2.5 ML 1 DROPS EYE-LEFT (21:03)
[2018-08-15] VITALS (11 sets, daily range): BP systolic 111–133; BP diastolic 49–77; PULSE 92–114; RESP 16–24; TEMP 36.3–36.9; O2SAT 92–98
[2018-08-15] MEDS: ALBUTEROL/IPRATROPIUM 3 ML AMPUL INH ×3 (05:17→17:30)
[2018-08-15] MEDS: TIOTROPIUM BROMIDE 18 MCG INHALER INH (05:17)
[2018-08-15] MEDS: FLUTICASONE/SALMETEROL 500/50 14 PUFF DISKUS INH ×2 (05:19→17:30)
[2018-08-15 06:03] LABS: Add Manual Diff / Slide Review NO; Basophils Absolute Auto 0 /uL (0-100); Basophils Percent Auto 0.2 % (0-2); Eosinophils Absolute Auto 100 /uL (0-450); Hemoglobin 8.4 g/dL (13.5-17.5); Lymphocytes Absolute Auto 1200 /uL (1100-4500); Mean Corpuscular HGB Conc 33.8 % (30-36); Mean Corpuscular Hemoglobin 35.4 PG (26-34); Mean Corpuscular Volume 104.6 fL (80-100); Monocytes Absolute Auto 1100 /uL (0-900); Monocytes Percent Auto 8.2 % (3-14); Neutrophils Absolute Auto 11100 /uL (1500-7000); Neutrophils Percent Auto 81.6 % (50-75); Platelet Count 311 X10^3/uL (150-400); Red Blood Cell Count 2.36 X10^6/uL (4.5-5.9); Red Cell Distribution Width 17.1 % (11.6-14.8); White Blood Cell Count 13.6 X10^3/uL (4.5-11.0)
[2018-08-15 06:05] LABS: INR 2.4 (0.9-1.3); Prothrombin Time 27.9 SECONDS (10.1-12.7)
[2018-08-15 06:14] LABS: BUN Creatinine Ratio 25.8 (6-22); Blood Urea Nitrogen 31 mg/dL (9-20); Calcium 8.2 mg/dL (8.4-10.2); Carbon Dioxide 27 mmol/L (22-32); Chloride 104 mmol/L (98-107); Glucose 95 mg/dL (80-110); HEMOLYSIS < 15 (0-50); Hematocrit 24.7 % (41-53); Potassium 4.2 mmol/L (3.4-5.1); Sodium 137 mmol/L (137-145)
[2018-08-15 06:28] LABS: B Type Natriuretic Peptide 829 (<100)
[2018-08-15] MEDS: CHOLECALCIFEROL (VITAMIN D3) 1,000 UNIT TABLET 1000 UNIT PO (08:51)
[2018-08-15] MEDS: CLOPIDOGREL 75 MG TABLET PO (08:51)
--- NOTE | 2018-08-15 10:13 | PC.NURSE ---
0045 Reported results of orthostatic B/Ps to Dr Ang. states she will contact Pe Manager.
--- NOTE | 2018-08-15 11:25 | OT.IP.TRT ---
Current Diagnoses Syncope and collapse (08/13/18) Occupational Therapy Treatment Note M2 OT-IP Current Condition Start: 08/14/18 17:49 Freq: Status: Active Protocol: Document 08/14/18 16:32 [facility] (Rec: 08/14/18 18:07 [facility] [id number]) Occupational Therapy Current Condition Current Condition Evaluation Date 08/14/18 Treatment Diagnosis decreased indep in self care, functional mobility due to hypotension Diagnosis Onset Date 08/13/18 Post Operative Precautions Other Precautions monitor BP, 3L O2 M3 OT- IP Subjective and Pain Start: 08/14/18 17:49 Freq: Status: Active Protocol: Document 08/15/18 11:25 [facility] (Rec: 08/15/18 15:31 [facility] NRTM) OT- Subjective Occupational Therapy Visit Type Type Treatment Note Visit Start Time 11:01 Visit Stop Time 11:24 Total Visit Minutes 23 Notes Co tx with P.T. as 2 person assist required for safety. Occupational Therapy Visit Comments Patient/Caregiver Goals to get strong enough to go home, to make sure my heart rate isn't going too high before I leave here OT Pain Assessment Pain When Pain Assessed After Treatment Pain Present Pain Present Denied Pain M7 OT- IP Mobility and Balance Start: 08/14/18 17:49 Freq: Status: Active Protocol: Document 08/15/18 11:25 [facility] (Rec: 08/15/18 15:31 [facility] NRTM) OT- Bed Mobility Assessment Sit to Supine Sit to Supine Assist Standby Assistance OT-Transfer Assessment Sit to and From Stand Sit to and from Stand Contact Guard Assistance Transfers Transfer Ability Contact Guard Assistance Technique Transfer Destination Bed Transfer Technique Stand Step Pivot Devices Transfer Assistive Devices Gait Belt Front Wheeled Walker Comments Mobility Comments pt needs CGA due to mild dizziness with position changes from supine to sitting to standing, BP stable today, see P.T. notes for details OT- Gait Assessment Gait Gait Assistance Required: Contact Guard Assist Comments Gait Ability Comments see P.T. notes for details OT- Balance Assessment Sitting Balance and Reactions Static Sitting Balance Ability Good Standing Balance and Reactions Static Standing Balance Ability Fair M M9 OT- IP Assessment and Plan Start: 08/14/18 17:49 Freq: Status: Active Protocol: Document 08/15/18 11:25 [facility] (Rec: 08/15/18 15:31 [facility] NRTM) OT Summary Assessment and Plan Potential Rehabilitation Potential Good Summary Progress Towards Goals Slow Progress due to Medical Issues Assessment Summary Pt's BP stable today but pt's HR fluctuating from 111-138 with short walk in room and RN requesting to hold further activity at present. Cardiology consult pending per RN and note pt has pacemaker. Unable to attempt any self care tasks today due to elevated HR with activity. Pt is cooperative and motivated to improve with good effort and participation.He will need SNF prior to return home Goals Grooming Goal Standby Assistance Dressing Goal Standby Assistance Toileting Goal Standby Assistance Bathing Goal Minimal Assistance Toilet Transfer Goal Standby Assistance Shower Transfer Goal Contact Guard Assistance Patient/Caregiver Education Goal Demonstrate Energy Conservation and Pacing Days to Meet Goals 5 Frequency of Treatment Frequency Of Treatment Once a Day Treatment Plan OT Treatment Plan ADL Training Functional Mobility Patient/Family Education Discharge Planning Discharge Recommendations OT Discharge Recommendations SNF Rehab Home Equipment Needs to be determined in next rehab setting
--- NOTE | 2018-08-15 12:00 | PT.IPTN ---
Current Diagnoses Syncope and collapse (08/13/18) Physical Therapy Treatment Note M2 PT-IP Current Condition Start: 08/14/18 11:53 Freq: NEEDED Status: Active Protocol: Document 08/14/18 15:41 [facility] (Rec: 08/14/18 15:49 [facility] [id number]) Physical Therapy Current Condition Current Condition Evaluation Date 08/14/18 Treatment Diagnosis hypotension, weakness Precautions Other Precautions check BP Weight Bearing Status Weight Bearing Status Weight Bear as Tolerated M3 PT-IP Subjective Start: 08/14/18 11:53 Freq: NEEDED Status: Active Protocol: Document 08/15/18 11:50 [facility] (Rec: 08/15/18 12:00 [facility] [id number]) Subjective Physical Therapy Visit Type Type Treatment Note Visit Start Time 11:05 Visit Stop Time 11:25 Total Visit Minutes 20 Number of BRAKE REPAIRER BUS Visits 1 Physical Therapy Visit Comments Patient Comments Pt supine in bed, agreeable to PT. Patient Goals To return home with . Therapy Pain Assessment Pain When Pain Assessed At Rest Pain Present Pain Present Denied Pain M4 PT-IP Mobility and Gait Start: 08/14/18 11:53 Freq: NEEDED Status: Active Protocol: Document 08/15/18 11:50 [facility] (Rec: 08/15/18 12:00 [facility] [id number]) PT-Bed Mobility Assessment Rolling Type of Rolling Roll to Left Level of Assist Standby Assistance Supine to Sit Supine to Sit Standby Assistance Sit to Supine Sit to Supine Standby Assistance Scooting Scooting to Edge of Bed Standby Assistance Scooting Up and Down in Bed Standby Assistance PT-Transfer Assessment Sit to and From Stand Sit to and from Stand Contact Guard Assistance Use of Upper Extremities Equipment Transfer Assistive Device Gait Belt Front Wheeled Walker Orthotic/Prosthetic Devices or Brace: No Comments Mobility Comments BP in HOB elevated 80 degrees 130/70, EOB 104/51, Standing 108/59, standing after short walk 107/57. Pt completed several sit to stands from EOB with CGA and min cues for safety. BPs in more normal range but HR fluctuated between 111-138 with mobility. Gait Assessment Gait Gait Assistance Required: Contact Guard Assist Distance (Feet) 12 Assistive Devices Assistive Device Gait Belt Front Wheeled Walker Orthotic/Prosthetic Devices or Brace: No Gait Deviations General Gait Pattern Antalgic Flexed Trunk Factors Limiting Gait Function Factors Limiting Gait Function Decreased Activity Tolerance Decreased Strength Poor Balance Comments Gait Comments Pt with some reports of dizziness but less than yesterday. HR up to 138 breifly with ambualtion and 02 sats down to 87%. Pt cued for PLB. Pt very fatigued after limited activity. Functional Assessments Other Functional Tests Performed Standing static/dynamic balance training and tolerance with BP checks and PLB. M5 PT-IP Objective Assessments Start: 08/14/18 11:53 Freq: NEEDED Status: Active Protocol: Document 08/14/18 15:41 [facility] (Rec: 08/14/18 15:49 [facility] [id number]) Orientation Orientation/Cognition Level of Alertness Alert Strength Lower Extremity Strength Assessment Bilaterally Impaired M6 PT-IP Treatment Start: 08/14/18 11:53 Freq: NEEDED Status: Active Protocol: Document 08/15/18 11:50 SA (Rec: 08/15/18 12:00 SA [id number]) Physical Therapy Treatment Exercises Exercises Ankle Pumps M7 PT-IP Assessment and Plan Start: 08/14/18 11:53 Freq: NEEDED Status: Active Protocol: Document 08/15/18 11:50 SA (Rec: 08/15/18 12:00 SA [id number]) PT Summary Assessment and Plan Summary Assessment Summary Pt to follow up with cardiac MD regarding fluctuating HR with limited mobility, BPs more normal today. Pt works well with PT but is disappointed with his HR and fatigue levels. Recommendations To Nursing Amount of Assist Needed 1 Person Assist Discharge Recommendations PT Discharge Recommendations SNF Rehab
[2018-08-15] MEDS: WARFARIN 1 MG TABLET PO (17:44)
--- NOTE | 2018-08-15 18:27 | P.PN_ITS ---
Subjective Date Patient Seen: 08/15/18 Interval history: Patient had a run of V-tach last evening. Symptoms resolved. He continues to be short of breath. He has no chest pain. The patient has no further syncope. However he is orthostatic when going from lying to sitting and sitting to standing. Exam Vital Signs (past 8 hours): - 08/15/18 11:28 08/15/18 11:29 08/15/18 15:25 Temperature 98.3 F 97.8 F Pulse Rate 104 H 110 H 92 H Respiratory Rate 22 18 24 Blood Pressure 133/71 122/49 L Pulse Oximetry 98 93 94 08/15/18 17:36 Temperature Pulse Rate 99 H Respiratory Rate 20 Blood Pressure Pulse Oximetry 95 Fraction of Inspired Oxygen 28 Oxygen Delivery Method Nasal Cannula Oxygen Flow Rate 2 Narrative Exam Narrative: Pleasant gentleman ill appearing Lungs: Decreased breath sounds bilaterally Cardiac exam: Regular rate rhythm normal S1-S2 Abdomen: Soft nontender nondistended Extremities: No edema Objective Labs Result Diagrams: 08/15/18 05:18 08/15/18 05:18 Labs: Laboratory Results - last 24 hr 08/14/18 08/15/18 08/15/18 17:46 05:18 05:18 WBC 13.6 H RBC 2.36 L Hgb 8.4 L Hct 24.7 L MCV 104.6 H D MCH 35.4 H MCHC 33.8 RDW 17.1 H Plt Count 311 Neut % (Auto) 81.6 H Lymph % (Auto) 9.0 L [place] % (Auto) 8.2 Eos % (Auto) 1.0 L Baso % (Auto) 0.2 Neut # (Auto) 95668 H Lymph # (Auto) 1200 [place] # (Auto) 1100 H Eos # (Auto) 100 Baso # (Auto) 0 PT INR Sodium 137 Potassium 4.2 Chloride 104 Carbon Dioxide 27 BUN 31 H Creatinine 1.20 Estimated GFR 58.0 L BUN/Creatinine Ratio 25.8 H Glucose 95 Calcium 8.2 L Iron 41 L TIBC 230 L % Saturation 18 L Transferrin 153 L B-Natriuretic Peptide 08/15/18 08/15/18 05:18 05:18 WBC RBC Hgb Hct MCV MCH MCHC RDW Plt Count Neut % (Auto) Lymph % (Auto) [place] % (Auto) Eos % (Auto) Baso % (Auto) Neut # (Auto) Lymph # (Auto) [place] # (Auto) Eos # (Auto) Baso # (Auto) PT 27.9 H INR 2.4 H Sodium Potassium Chloride Carbon Dioxide BUN Creatinine Estimated GFR BUN/Creatinine Ratio Glucose Calcium Iron TIBC % Saturation Transferrin B-Natriuretic Peptide 829 H Assessment & Plan Assessment & Plan narrative: Acute on chronic hypoxic respiratory failure. Syncope present on admission, secondary to orthostatic hypotension Pneumonia, resolved Anemia, chronic disease Acute COPD Chronic atrial fibrillation Congestive heart failure, systolic failure Coronary artery Plan patient's medications have been adjusted downward given his orthostatic hypotension. He does continue to have tachyarrhythmias as well. Will discuss with his household worker to determine whether an antiarrhythmic agent or other medication should be added. Will continue to follow his orthostatic vital signs given his initial diagnosis of syncope. Quality VTE Deep Vein Thrombosis/Pulmonary Embolism Present on Admission: No
[2018-08-15] MEDS: LATANOPROST 0.005% OPHTH 2.5 ML 1 DROPS EYE-LEFT (20:51)
[2018-08-15] MEDS: ATORVASTATIN 20 MG TABLET 40 MG PO (20:51)
[2018-08-16] VITALS (25 sets, daily range): BP systolic 86–151; BP diastolic 49–77; PULSE 79–116; RESP 18–28; TEMP 36.2–37.5; O2SAT 90–98
--- NOTE | 2018-08-16 | DI.ECHO.S_ITS ---
[facility] +---------+ [facility] +---------+ : : [address] : : : : [id number] : : : : Phone: [phone]+ Echocardiogram Report + + :Name: ENRIKE YUSUF Study Date: 08/17/2018 Height: 70 in : :[facility] Weight: 136 lb : : Gender: Male BSA: 1.8 m2 : :: 1935 Age: 83 yrs BP: 107/71 mmHg: :Reason For Study: Mitral Valve- Stenosis : :Ordering Physician: Parmjit : :Jessica Christianson Performed By: Therese Garcia : :Referring: MICHELLE Hazel : + + Interpretation Summary The left ventricle is normal in size. The left ventricular ejection fraction is normal. The ejection fraction is estimated to be 55-60%. There has been no significant change since the previous study. There is a moderate dyssynchronous contraction pattern due to the paced rhythm. Diastolic function could not be accurately assessed due to paced rhythm. The right ventricle is mildly dilated. There is a pacemaker lead in the right ventricle. The right ventricular systolic function is normal. The right ventricular systolic pressure is estimated to be at least 71 mmHg based on an estimated right atrial pressure of 3 mm Hg. Compared to the prior echo exam, there has been a decrease in the severity of pulmonary hypertension. The left atrium is severely dilated. Right atrial size is normal. There is moderate to severe mitral annular calcification. There is moderate to severe mitral stenosis. Compared to the prior echo exam, there has been an increase in the severity of mitral stenosis. The mitral valve mean gradient is 14 mmHg. There is moderate mitral regurgitation. There has been no significant change since the previous study. 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 No aortic regurgitation is present. There is moderate to severe tricuspid regurgitation. The ascending aorta is mildly enlarged. Procedure: A two-dimensional transthoracic echocardiogram with color flow and Doppler was performed. The study quality was technically adequate. Comparison is made with the echocardiogram of 01-25-18. The patient has a paced rhythm. Left Ventricle: The left ventricle is normal in size. There is normal left ventricular wall thickness. The left ventricular ejection fraction is normal. The ejection fraction is estimated to be 55-60%. There has been no significant change since the previous study. There is a moderate dyssynchronous contraction pattern due to the paced rhythm. Diastolic function could not be accurately assessed due to paced rhythm. Right Ventricle: The right ventricle is mildly dilated. There is a pacemaker lead in the right ventricle. The right ventricular systolic function is normal. Atria: The left atrium is severely dilated. Right atrial size is normal. The interatrial septum is intact with no evidence for an atrial septal defect. Mitral Valve: There is moderate to severe mitral annular calcification. There is moderate to severe mitral stenosis. Compared to the prior echo exam, there has been an increase in the severity of mitral stenosis. The mitral valve mean gradient is 14 mmHg. There is moderate mitral regurgitation. There has been no significant change since the previous study. 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 No aortic regurgitation is present. Tricuspid Valve: The tricuspid valve leaflets are thin and pliable. There is moderate to severe tricuspid regurgitation. The right ventricular systolic pressure is estimated to be at least 71 mmHg based on an estimated right atrial pressure of 3 mm Hg. Compared to the prior echo exam, there has been a decrease in the severity of pulmonary hypertension. Pulmonic Valve: The pulmonic valve is not well seen, but is grossly normal. There is trace pulmonic regurgitation. Great Vessels: The aortic root is normal size. The ascending aorta is mildly enlarged. The IVC is of normal diameter and collapses greater than 50% with a sniff. This suggests a low right atrial pressure of 3 mm Hg. Pericardium/ Pleura There is no pericardial effusion. There is no pleural effusion. MMode/2D Measurements & Calculations LVIDd: 3.9 cm LVOT diam: 1.9 cm LVIDs: 2.4 cm asc Aorta Diam: 3.7 cm FS: 38.4 % IVSd: 1.2 cm LVPWd: 1.0 cm LV dueñas. diameter/BSA (cm/m^2): 2.2 LV sys. diameter/BSA (cm/m^2): 1.4 LA dimension: 4.2 cm RA long axis: 5.1 cm LA A2 area: 26.7 cm2 RA area: 16.5 cm2 LA A4 area: 22.7 cm2 RA vol: 45.1 ml LA length (vol): 5.8 cm RA : 25.5 ml/m2 LA vol: 89.1 ml IVC diam: 1.7 cm LA vol index: 50.3 ml/m2 RVDd major: 6.6 cm RVD1 (basal): 3.6 cm RVD2 (mid): 2.1 cm Doppler Measurements & Calculations Ao V2 max: 139.5 cm/sec TR max tc: 412.8 cm/sec Ao V2 mean: 89.6 cm/sec TR max P.2 mmHg Ao max P.8 mmHg PA V2 max: 61.8 cm/sec Ao mean P.9 mmHg PA V2 mean: 36.9 cm/sec Ao V2 VTI: 22.9 cm PA mean P.68 mmHg PA Accel Time: 0.10 sec MV V2 mean: 176.7 cm/sec MV mean P.8 mmHg MV V2 VTI: 51.9 cm Reading Physician:01:38 PM
[2018-08-16] MEDS: TIOTROPIUM BROMIDE 18 MCG INHALER INH (05:36)
[2018-08-16] MEDS: FLUTICASONE/SALMETEROL 500/50 14 PUFF DISKUS INH ×2 (05:36→17:10)
[2018-08-16] MEDS: ALBUTEROL/IPRATROPIUM 3 ML AMPUL INH ×3 (05:36→17:10)
[2018-08-16] MEDS: SODIUM CHLORIDE 0.9% FLUSH 10 ML IV (09:28)
[2018-08-16] MEDS: CLOPIDOGREL 75 MG TABLET PO (09:29)
[2018-08-16] MEDS: CHOLECALCIFEROL (VITAMIN D3) 1,000 UNIT TABLET 1000 UNIT PO (09:29)
--- NOTE | 2018-08-16 09:39 | OT.IP.TRT ---
Current Diagnoses Syncope and collapse (08/13/18) Occupational Therapy Treatment Note M2 OT-IP Current Condition Start: 08/14/18 17:49 Freq: Status: Active Protocol: Document 08/14/18 16:32 PJM (Rec: 08/14/18 18:07 PJM [id number]) Occupational Therapy Current Condition Current Condition Evaluation Date 08/14/18 Treatment Diagnosis decreased indep in self care, functional mobility due to hypotension Diagnosis Onset Date 08/13/18 Post Operative Precautions Other Precautions monitor BP, 3L O2 M3 OT- IP Subjective and Pain Start: 08/14/18 17:49 Freq: Status: Active Protocol: Document 08/16/18 09:39 PJM (Rec: 08/16/18 12:24 PJM [id number]) OT- Subjective Occupational Therapy Visit Type Type Treatment Note Visit Start Time 09:08 Visit Stop Time 09:39 Total Visit Minutes 31 Occupational Therapy Visit Comments Patient Comments I can't remember whether my heart rate is down or my blood pressure is up or vice versa. Patient/Caregiver Goals to get strong enough to go home OT Pain Assessment Pain When Pain Assessed After Treatment Pain Present Pain Present Denied Pain M4 OT- IP ADL's Start: 08/14/18 17:49 Freq: Status: Active Protocol: Document 08/16/18 09:39 PJM (Rec: 08/16/18 12:24 PJM [id number]) OT ADL-Grooming General Evaluation Grooming Ability Standby Assistance Areas Needing Assistance Retrieving/Set-up of Grooming Items Combing/Brushing Hair Face Washing Comments OT Grooming Comments afer set up in bed due to hypotension when sitting EOB OT ADL-Oral Care General Eval Oral Care Ability Standby Assistance Areas of Assistance Brushing Teeth Retrieving/Set-Up of Items Comments Oral Care Comments afer set up in bed due to hypotension when sitting EOB OT ADL-Bathing Comments OT Bathing Comments Pt set up with shampoo cap in bed. He needed min assist to massage and dry head due to mild SOB with this activity. M5 OT- IP IADL's Start: 08/14/18 17:49 Freq: Status: Active Protocol: Document 08/14/18 16:32 PJM (Rec: 08/14/18 18:07 PJM [id number]) OT-Instrumental Activities of Daily Living Deficits IADL Deficits Identified Deficits Home Safety Awareness Awareness of Need for Assistance at Home Good Awareness Medication Management Medication Management No Deficits Identified Money Management Money Management Caregiver Provides Assistance Meal Preparation Meal Preparation Caregiver Provides Assist Bottle Capping Machine Operator Bottle Capping Machine Operator Caregiver Provides Assist Driving Driving Caregiver Provides Assist M6 OT- IP Functional Cognition Start: 08/14/18 17:49 Freq: Status: Active Protocol: Document 08/14/18 16:32 PJM (Rec: 08/14/18 18:07 [facility] NR) Cognitive Factors Limiting Selfcare Function Cognitive Ability Level of Alertness Alert Patient Orientation Name Place Situation Attention Span Ability Capable of Focused Attention Ability to Follow Commands Able to Follow One Step Commands Cognitive Comments Cognitive Assessment Comments Pt alert with good participation and effort this session. He recalls recent events. OT- Vision and Hearing OT- Hearing Assessment OT- Hearing Assessment WFL OT- Vision Assessment Visual Acuity WFL Vision Assessment Comments Pt denies any recent vision changes M7 OT- IP Mobility and Balance Start: 08/14/18 17:49 Freq: Status: Active Protocol: Document 08/16/18 09:39 PJM (Rec: 08/16/18 12:24 [facility] NR) OT- Bed Mobility Assessment Rolling Type of Rolling Roll to Left Level of Assistance Standby Assistance 1 Person Assistance Head of Bed Elevated Supine to Sit Supine to Sit Assist Standby Assistance 1 Person Assistance Head of Bed Elevated Sit to Supine Sit to Supine Assist Standby Assistance 1 Person Assistance Head of Bed Elevated Scooting Scooting to Edge of Bed Standby Assistance OT-Transfer Assessment Sit to and From Stand Sit to and from Stand Contact Guard Assistance Comments Mobility Comments Pt took 3-4 side steps along EOB, but unable to progress with any OOB activity as pt orthostatic and dizzy as soon as he sat EOB. supine BP 118/57 HR 111 sitting EOB BP 90/58 HR 120 OT- Balance Assessment Sitting Balance and Reactions Static Sitting Balance Ability Good Dynamic Sitting Balance Ability Good M8 OT- IP Objective Assessments Start: 08/14/18 17:49 Freq: Status: Active Protocol: Document 08/14/18 16:32 PJM (Rec: 08/14/18 18:07 [facility] NR) OT Gross Range of Motion Upper Extremity Range of Motion Assessment Within Functional Limits OT Strength Upper Extremity Strength Assessment Within Functional Limits OT- Coordination Assessment Comments Coordination Comments BUE WFL per pt OT-Muscle Tone Assessment Muscle Tone WNL Yes OT Sensation Assessment Comments Summary Comments WNL BUE per pt Edema Edema Absent M9 OT- IP Assessment and Plan Start: 08/14/18 17:49 Freq: Status: Active Protocol: Document 08/16/18 09:39 PJM (Rec: 08/16/18 12:24 PJM [id number]) OT Summary Assessment and Plan Summary Progress Towards Goals Slow Progress due to Medical Issues Assessment Summary Pt continues to have persistent symptomatic orthostatic hypotension which limits his ability to progress with out of bed activity. Pt participating very well with grooming tasks after set up in bed. Note pt was on 2L O2 when therapist arrived and pt SOB with bed mobility dropping to 86 and staying at 87 after resting. Discussed with RN and increased O2 to 3L for grooming/hair washing with O2 sats stable at 91. Pt states his usual home O2 use is 3L. Recommend SNF at d/c for further rehab when pt medically stable. Will continue OT services here as medical status permits. Goals Grooming Goal Standby Assistance Dressing Goal Standby Assistance Toileting Goal Standby Assistance Bathing Goal Minimal Assistance Toilet Transfer Goal Standby Assistance Shower Transfer Goal Contact Guard Assistance Patient/Caregiver Education Goal Demonstrate Energy Conservation and Pacing Days to Meet Goals 5 Frequency of Treatment Frequency Of Treatment Once a Day Treatment Plan OT Treatment Plan ADL Training Functional Mobility Patient/Family Education Discharge Planning Discharge Recommendations OT Discharge Recommendations SNF Rehab Home Equipment Needs to be determined in next rehab setting
[2018-08-16] MEDS: SODIUM CHLORIDE 0.9% 1,000 ML 1000 ML IV (11:31)
--- NOTE | 2018-08-16 13:30 | PM.PN.1 ---
Subjective Date Patient Seen: 08/16/18 Interval history: Patient continues to have significant orthostatic hypotension. He is short of breath. He remains on oxygen. He has no chest pain or nausea. Discussed with Cardiology, old ECHO reveals Mitral Stenosis. Exam Vital Signs (past 8 hours): - 08/16/18 05:36 08/16/18 07:32 08/16/18 08:40 Temperature 97.1 F L Pulse Rate 107 H 79 Respiratory Rate 24 18 Blood Pressure 94/63 Pulse Oximetry 92 92 92 08/16/18 11:00 08/16/18 11:42 Temperature 99.5 F Pulse Rate 107 H 110 H Respiratory Rate 20 20 Blood Pressure 123/69 Pulse Oximetry 95 95 Fraction of Inspired Oxygen 28 Oxygen Delivery Method Nasal Cannula Oxygen Flow Rate 3 Narrative Exam Narrative: Ill appearing male Lungs: Decreased breath sounds CV: tachycardic, irregularly, irregular Nl Sl S2 2/6 GAB Abd: soft/non tender Ext: no edema Objective Labs Result Diagrams: 08/15/18 05:18 08/15/18 05:18 Labs: Echo Pending Assessment & Plan Assessment & Plan narrative: Syncope, present on admission Secondary to Orthostatic Hypotension, from Volume depletion Anemia, chronic Pneumonia, resolved Acute on Chronic Respiratory Failure COPD Chronic Atrial Fibrillation Plan: Will replace fluid, will transfuse for H/H 7/or less, hopefully once volume improved can resume Beta Sheldon Await Echo . Goal improved orthostatic hypotension/syncope Quality VTE Deep Vein Thrombosis/Pulmonary Embolism Present on Admission: No
--- NOTE | 2018-08-16 13:45 | PT.IPTN ---
Current Diagnoses Syncope and collapse (08/13/18) Physical Therapy Treatment Note M2 PT-IP Current Condition Start: 08/14/18 11:53 Freq: NEEDED Status: Active Protocol: Document 08/14/18 15:41 [facility] (Rec: 08/14/18 15:49 [facility] [id number]) Physical Therapy Current Condition Current Condition Evaluation Date 08/14/18 Treatment Diagnosis hypotension, weakness Precautions Other Precautions check BP Weight Bearing Status Weight Bearing Status Weight Bear as Tolerated M3 PT-IP Subjective Start: 08/14/18 11:53 Freq: NEEDED Status: Active Protocol: Document 08/16/18 13:31 SA (Rec: 08/16/18 13:45 [id number]) Subjective Physical Therapy Visit Type Type Treatment Note Visit Start Time 13:00 Visit Stop Time 13:19 Total Visit Minutes 19 Notes Pt with continued fluctuating HR and poor activity tolerance . Pt had IV fluid this AM. Number of ASSISTANT AUDITOR Visits 2 Physical Therapy Visit Comments Patient Comments Pt supine in bed and states he feels weak and about the same as yesterday. Patient Goals To return home with . Therapy Pain Assessment Pain When Pain Assessed At Rest Pain Present Pain Present Denied Pain M4 PT-IP Mobility and Gait Start: 08/14/18 11:53 Freq: NEEDED Status: Active Protocol: Document 08/16/18 13:31 SA (Rec: 08/16/18 13:45 [id number]) PT-Transfer Assessment Comments Mobility Comments Pt vitals at rest: HR 89, BP 111/57 and 02 sats 92% on 3L. As pt HR changes so significantly at rest, decided to keep pt in bed and monitor vitals with LE ther ex. M5 PT-IP Objective Assessments Start: 08/14/18 11:53 Freq: NEEDED Status: Active Protocol: Document 08/14/18 15:41 [facility] (Rec: 08/14/18 15:49 [facility] [id number]) Orientation Orientation/Cognition Level of Alertness Alert Strength Lower Extremity Strength Assessment Bilaterally Impaired M6 PT-IP Treatment Start: 08/14/18 11:53 Freq: NEEDED Status: Active Protocol: Document 08/16/18 13:31 SA (Rec: 08/16/18 13:45 SA [id number]) Physical Therapy Treatment Exercises Exercises Ankle Pumps Gluteal Sets Quad Sets Heel Slides Straight Leg Raises Other Treatments Other Treatment Performed Pt HR between 89-111 with LE movements in bed. M7 PT-IP Assessment and Plan Start: 08/14/18 11:53 Freq: NEEDED Status: Active Protocol: Document 08/16/18 13:31 SA (Rec: 08/16/18 13:45 SA [id number]) PT Summary Assessment and Plan Summary Assessment Summary Pt medically fragile, hoping cardiac follow up will provide more information for proceeding with PT. Frequency of Treatment Frequency Of Treatment Once a Day Recommendations To Nursing Amount of Assist Needed 1 Person Assist Discharge Recommendations PT Discharge Recommendations SNF Rehab
[2018-08-16 14:13] LABS: Hematocrit 25.6 % (41-53); Hemoglobin 8.6 g/dL (13.5-17.5)
[2018-08-16] MEDS: WARFARIN 1 MG TABLET PO (17:29)
[2018-08-16] MEDS: guaiFENesin ER 600 MG TAB PO (19:53)
--- NOTE | 2018-08-16 20:07 | DI.RAD.S_ITS ---
PROCEDURE: XR CHEST 1V INDICATIONS: shortness of breath, labored respirations TECHNIQUE: One view of the chest was acquired. COMPARISON: [facility], CR, XR CHEST 1V, 08/13/2018, 12:01. FINDINGS: Surgical changes and devices: Cardiac stent and left chest pacer device are unchanged from prior exam. Lungs and pleura: Increased diffuse interstitial reticular opacities noted. Increased hazy opacification of the right midlung field and left lung base. There are small bilateral pleural effusions. Mediastinum: There is calcified plaque of the aorta. Mediastinal silhouette is unchanged from prior exam. Cardiac silhouette is partially obscured by adjacent pulmonary opacities. Bones and chest wall: The osseous structures are unchanged from prior exam of 08/13/18. IMPRESSION: Worsening diffuse bilateral pulmonary opacities concerning for multifocal pneumonia, greatest at the right midlung field and left lung base. Underlying mild pulmonary edema may be present as well. Dictated by: Andrei Olson M.D. on 08/16/2018 at 21:35 Approved by: Andrei Olson M.D. on 08/16/2018 at 21:37
[2018-08-16] MEDS: LATANOPROST 0.005% OPHTH 2.5 ML 1 DROPS EYE-LEFT (20:49)
[2018-08-16] MEDS: ATORVASTATIN 20 MG TABLET 40 MG PO (20:49)
[2018-08-16] MEDS: FUROSEMIDE 40 MG/4 ML VIAL IV (22:16)
[2018-08-17] VITALS (17 sets, daily range): BP systolic 77–139; BP diastolic 58–82; PULSE 94–120; RESP 18–26; TEMP 36.2–36.6; O2SAT 81–97
[2018-08-17] MEDS: SODIUM CHLORIDE 0.9% FLUSH 10 ML IV ×3 (01:55→20:30)
[2018-08-17] MEDS: TIOTROPIUM BROMIDE 18 MCG INHALER INH (05:27)
[2018-08-17] MEDS: ALBUTEROL/IPRATROPIUM 3 ML AMPUL INH ×3 (05:27→19:38)
[2018-08-17] MEDS: FLUTICASONE/SALMETEROL 500/50 14 PUFF DISKUS INH ×2 (05:27→18:04)
[2018-08-17 06:15] LABS: Alanine Aminotransferase 30 IU/L (21-72); Albumin 3.1 g/dL (3.5-5.0); Albumin Globulin Ratio 0.9 (1.0-2.8); Alkaline Phosphatase 87 U/L (38-126); Aspartate Aminotransferase 34 IU/L (17-59); Bilirubin Total 1.2 mg/dL (0.2-1.3); Blood Urea Nitrogen 26 mg/dL (9-20); Calcium 8.7 mg/dL (8.4-10.2); Carbon Dioxide 29 mmol/L (22-32); Chloride 104 mmol/L (98-107); Estimated Glomerular Filt Rate > 60.0 mL/min (>60); Globulin 3.5 g/dL (1.7-4.1); Glucose 108 mg/dL (80-110); HEMOLYSIS < 15 (0-50); Sodium 139 mmol/L (137-145); Total Protein 6.6 g/dL (6.3-8.2)
[2018-08-17 06:29] LABS: Basophils Absolute Auto 100 /uL (0-100); Basophils Percent Auto 0.6 % (0-2); Eosinophils Absolute Auto 200 /uL (0-450); Eosinophils Percent Auto 1.3 % (2-4); Hemoglobin 11.8 g/dL (13.5-17.5); Lymphocytes Absolute Auto 1300 /uL (1100-4500); Lymphocytes Percent Auto 10.6 % (25-40); Mean Corpuscular HGB Conc 33.9 % (30-36); Mean Corpuscular Hemoglobin 32.9 PG (26-34); Monocytes Absolute Auto 1100 /uL (0-900); Monocytes Percent Auto 8.7 % (3-14); Neutrophils Absolute Auto 9900 /uL (1500-7000); Neutrophils Percent Auto 78.8 % (50-75); Platelet Count 309 X10^3/uL (150-400); Red Blood Cell Count 3.59 X10^6/uL (4.5-5.9); Red Cell Distribution Width 24.6 % (11.6-14.8); White Blood Cell Count 12.6 X10^3/uL (4.5-11.0)
[2018-08-17 07:10] LABS: Add Manual Diff / Slide Review SLIDE REVIEW; Hematocrit 34.9 % (41-53)
[2018-08-17 07:45] LABS: Anisocytosis 2+; Poikilocytosis 1+
[2018-08-17] MEDS: CHOLECALCIFEROL (VITAMIN D3) 1,000 UNIT TABLET 1000 UNIT PO (08:32)
[2018-08-17] MEDS: CLOPIDOGREL 75 MG TABLET PO (08:32)
[2018-08-17] MEDS: guaiFENesin ER 600 MG TAB PO ×2 (08:32→20:30)
--- NOTE | 2018-08-17 12:09 | OT.IP.TRT ---
Current Diagnoses Syncope and collapse (08/13/18) Occupational Therapy Treatment Note M2 OT-IP Current Condition Start: 08/14/18 17:49 Freq: Status: Active Protocol: Document 08/14/18 16:32 PJM (Rec: 08/14/18 18:07 PJM [id number]) Occupational Therapy Current Condition Current Condition Evaluation Date 08/14/18 Treatment Diagnosis decreased indep in self care, functional mobility due to hypotension Diagnosis Onset Date 08/13/18 Post Operative Precautions Other Precautions monitor BP, 3L O2 M3 OT- IP Subjective and Pain Start: 08/14/18 17:49 Freq: Status: Active Protocol: Document 08/17/18 12:07 CCC (Rec: 08/17/18 12:09 CCC [id number]) OT- Subjective Occupational Therapy Visit Type Type Administrative Note Notes Pt not medically stable at this time, therefore HOLD from OT at this time. To check on pt again tomorrow.
--- NOTE | 2018-08-17 13:24 | P.PN_ITS ---
Subjective Date Patient Seen: 08/17/18 Interval history: He is seen today to follow-up his hypotension, anemia of u nclear etiology, mitral stenosis and COPD. Mid day today he has not tried getting up yet, to see if the transfusion has helped his near syncope. Exam Vital Signs (past 8 hours): - 08/17/18 05:28 08/17/18 06:00 08/17/18 08:35 Temperature 97.5 F L Pulse Rate 117 H 94 H Respiratory Rate 24 18 Blood Pressure 139/81 Pulse Oximetry 92 91 95 08/17/18 08:49 08/17/18 08:50 08/17/18 10:01 Temperature 97.8 F Pulse Rate 111 H Respiratory Rate 20 Blood Pressure 121/68 Pulse Oximetry 96 81 L 93 Fraction of Inspired Oxygen 28 Oxygen Delivery Method Room Air Oxygen Flow Rate 3 Narrative Exam Narrative: He is alert, oriented x3 and visiting with his family. He says he feels somewhat stronger with the blood transfusion yesterday. Heart is irregularly tachycardic without murmur Lungs are clear to auscultation bilaterally Extremities have no ankle edema Objective Imaging Echocardiogram: Radiologist's impression: Interpretation Summary The left ventricle is normal in size. The left ventricular ejection fraction is normal. The ejection fraction is estimated to be 55-60%. There has been no significant change since the previous study. There is a moderate dyssynchronous contraction pattern due to the paced rhythm. Diastolic function could not be accurately assessed due to paced rhythm. The right ventricle is mildly dilated. There is a pacemaker lead in the right ventricle. The right ventricular systolic function is normal. The right ventricular systolic pressure is estimated to be at least 71 mmHg based on an estimated right atrial pressure of 3 mm Hg. Compared to the prior echo exam, there has been a decrease in the severity of pulmonary hypertension. The left atrium is severely dilated. Right atrial size is normal. There is moderate to severe mitral annular calcification. There is moderate to severe mitral stenosis. Compared to the prior echo exam, there has been an increase in the severity of mitral stenosis. The mitral valve mean gradient is 14 mmHg. There is moderate mitral regurgitation. There has been no significant change since the previous study. 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 No aortic regurgitation is present. There is moderate to severe tricuspid regurgitation. The ascending aorta is mildly enlarged. Labs Result Diagrams: 08/17/18 05:39 08/17/18 05:39 Labs: Laboratory Results - last 24 hr 08/16/18 08/16/18 08/17/18 14:00 14:00 05:39 WBC 12.6 H RBC 3.59 L Hgb 8.6 L 11.8 L Hct 25.6 L 34.9 L MCV 97.0 D MCH 32.9 MCHC 33.9 RDW 24.6 H Plt Count 309 Neut % (Auto) 78.8 H Lymph % (Auto) 10.6 L Sutton % (Auto) 8.7 Eos % (Auto) 1.3 L Baso % (Auto) 0.6 Neut # (Auto) 9900 H Lymph # (Auto) 1300 Sutton # (Auto) 1100 H Eos # (Auto) 200 Baso # (Auto) 100 RBC Morphology See below Poikilocytosis 1+ H Anisocytosis 2+ H Sodium Potassium Chloride Carbon Dioxide BUN Creatinine Estimated GFR BUN/Creatinine Ratio Glucose Calcium Total Bilirubin AST ALT Alkaline Phosphatase Total Protein Albumin Globulin Albumin/Globulin Ratio Blood Type O Positive Antibody Screen Negative Crossmatch See Detail 08/17/18 05:39 WBC RBC Hgb Hct MCV MCH MCHC RDW Plt Count Neut % (Auto) Lymph % (Auto) Sutton % (Auto) Eos % (Auto) Baso % (Auto) Neut # (Auto) Lymph # (Auto) Sutton # (Auto) Eos # (Auto) Baso # (Auto) RBC Morphology Poikilocytosis Anisocytosis Sodium 139 Potassium 4.0 Chloride 104 Carbon Dioxide 29 BUN 26 H Creatinine 1.00 Estimated GFR > 60.0 BUN/Creatinine Ratio 26.0 H Glucose 108 Calcium 8.7 Total Bilirubin 1.2 AST 34 ALT 30 Alkaline Phosphatase 87 Total Protein 6.6 Albumin 3.1 L Globulin 3.5 Albumin/Globulin Ratio 0.9 L Blood Type Antibody Screen Crossmatch Assessment & Plan Assessment & Plan narrative: Syncope, present on admission Secondary to Orthostatic Hypotension, from Volume depletion -he will get up today with nursing for an expected improvement in these symptoms. Anemia, chronic -he and his tell me that he has not had a full GI workup for this anemia which has been present now for several months but has been not worked up because other issues have taken priority. -repeat CBC tomorrow and consider endoscopic workup as an outpatient or inpatient depending on the trend.. 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 Holding Dulera and Spiriva. Chronic Atrial Fibrillation - continue Plavix but hold Coumadin for now. - he has moderate to severe mitral stenosis, probably unchanged, on his echocardiogram today. 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 Plan: Continue albuterol, vitamin-C, atorvastatin, coenzyme Q10, doxazosin, latanoprost, lisinopril, Dulera, warfarin. Await Echo . Goal improved orthostatic hypotension/syncope Quality VTE Deep Vein Thrombosis/Pulmonary Embolism Present on Admission: No
[2018-08-17] MEDS: ACETAMINOPHEN 325 MG TABLET 650 MG PO (13:43)
--- NOTE | 2018-08-17 14:16 | PT.IPTN ---
Current Diagnoses Syncope and collapse (08/13/18) Physical Therapy Treatment Note M2 PT-IP Current Condition Start: 08/14/18 11:53 Freq: NEEDED Status: Active Protocol: Document 08/14/18 15:41 [facility] (Rec: 08/14/18 15:49 [facility] [id number]) Physical Therapy Current Condition Current Condition Evaluation Date 08/14/18 Treatment Diagnosis hypotension, weakness Precautions Other Precautions check BP Weight Bearing Status Weight Bearing Status Weight Bear as Tolerated M3 PT-IP Subjective Start: 08/14/18 11:53 Freq: NEEDED Status: Active Protocol: Document 08/17/18 14:10 SA (Rec: 08/17/18 14:16 [id number]) Subjective Physical Therapy Visit Type Notes Pt on hold for today d/t irregular HR and cardiac issues. ECHO completed revealing Mod-severe mitral annular calcification and mod- severe mitral stenosis. M4 PT-IP Mobility and Gait Start: 08/14/18 11:53 Freq: NEEDED Status: Active Protocol: Document 08/16/18 13:31 SA (Rec: 08/16/18 13:45 SA [id number]) PT-Transfer Assessment Comments Mobility Comments Pt vitals at rest: HR 89, BP 111/57 and 02 sats 92% on 3L. As pt HR changes so significantly at rest, decided to keep pt in bed and monitor vitals with LE ther ex. M5 PT-IP Objective Assessments Start: 08/14/18 11:53 Freq: NEEDED Status: Active Protocol: Document 08/14/18 15:41 [facility] (Rec: 08/14/18 15:49 [facility] [id number]) Orientation Orientation/Cognition Level of Alertness Alert Strength Lower Extremity Strength Assessment Bilaterally Impaired M6 PT-IP Treatment Start: 08/14/18 11:53 Freq: NEEDED Status: Active Protocol: Document 08/16/18 13:31 SA (Rec: 08/16/18 13:45 SA [id number]) Physical Therapy Treatment Exercises Exercises Ankle Pumps Gluteal Sets Quad Sets Heel Slides Straight Leg Raises Other Treatments Other Treatment Performed Pt HR between 89-111 with LE movements in bed. M7 PT-IP Assessment and Plan Start: 08/14/18 11:53 Freq: NEEDED Status: Active Protocol: Document 08/16/18 13:31 SA (Rec: 08/16/18 13:45 SA [id number]) PT Summary Assessment and Plan Summary Assessment Summary Pt medically fragile, hoping cardiac follow up will provide more information for proceeding with PT. Frequency of Treatment Frequency Of Treatment Once a Day Recommendations To Nursing Amount of Assist Needed 1 Person Assist Discharge Recommendations PT Discharge Recommendations SNF Rehab
--- NOTE | 2018-08-17 14:29 | PT.IPTN ---
Current Diagnoses Syncope and collapse (08/13/18) Physical Therapy Treatment Note M2 PT-IP Current Condition Start: 08/14/18 11:53 Freq: NEEDED Status: Active Protocol: Document 08/14/18 15:41 [facility] (Rec: 08/14/18 15:49 [facility] [id number]) Physical Therapy Current Condition Current Condition Evaluation Date 08/14/18 Treatment Diagnosis hypotension, weakness Precautions Other Precautions check BP Weight Bearing Status Weight Bearing Status Weight Bear as Tolerated M3 PT-IP Subjective Start: 08/14/18 11:53 Freq: NEEDED Status: Active Protocol: Document 08/17/18 14:21 SA (Rec: 08/17/18 14:29 SA [id number]) Subjective Physical Therapy Visit Type Notes D/C patient from PT services d /t irregular heart rate and recent ECHO revealing mod- severe mitral stenosis and mod -severe mitral annular calcification. Per Nurse pt still medically unstable and needs to speak with MD regarding future intervention. Spoke with PT, in agreement and can resume PT when medically stable. M4 PT-IP Mobility and Gait Start: 08/14/18 11:53 Freq: NEEDED Status: Active Protocol: Document 08/16/18 13:31 SA (Rec: 08/16/18 13:45 [id number]) PT-Transfer Assessment Comments Mobility Comments Pt vitals at rest: HR 89, BP 111/57 and 02 sats 92% on 3L. As pt HR changes so significantly at rest, decided to keep pt in bed and monitor vitals with LE ther ex. M5 PT-IP Objective Assessments Start: 08/14/18 11:53 Freq: NEEDED Status: Active Protocol: Document 08/14/18 15:41 [facility] (Rec: 08/14/18 15:49 [facility] [id number]) Orientation Orientation/Cognition Level of Alertness Alert Strength Lower Extremity Strength Assessment Bilaterally Impaired M6 PT-IP Treatment Start: 08/14/18 11:53 Freq: NEEDED Status: Active Protocol: Document 08/16/18 13:31 SA (Rec: 08/16/18 13:45 [id number]) Physical Therapy Treatment Exercises Exercises Ankle Pumps Gluteal Sets Quad Sets Heel Slides Straight Leg Raises Other Treatments Other Treatment Performed Pt HR between 89-111 with LE movements in bed. M7 PT-IP Assessment and Plan Start: 08/14/18 11:53 Freq: NEEDED Status: Active Protocol: Document 08/16/18 13:31 SA (Rec: 08/16/18 13:45 SA [id number]) PT Summary Assessment and Plan Summary Assessment Summary Pt medically fragile, hiping cardiac floow up will provide more information for proceeding with PT. Frequency of Treatment Frequency Of Treatment Once a Day Recommendations To Nursing Amount of Assist Needed 1 Person Assist Discharge Recommendations PT Discharge Recommendations SNF Rehab
--- NOTE | 2018-08-17 15:35 | PT.IPTN ---
Current Diagnoses Syncope and collapse (08/13/18) Physical Therapy Treatment Note M2 PT-IP Current Condition Start: 08/14/18 11:53 Freq: NEEDED Status: Active Protocol: Document 08/14/18 15:41 [facility] (Rec: 08/14/18 15:49 [facility] [id number]) Physical Therapy Current Condition Current Condition Evaluation Date 08/14/18 Treatment Diagnosis hypotension, weakness Precautions Other Precautions check BP Weight Bearing Status Weight Bearing Status Weight Bear as Tolerated M3 PT-IP Subjective Start: 08/14/18 11:53 Freq: NEEDED Status: Active Protocol: Document 08/17/18 15:35 AB (Rec: 08/17/18 16:25 AB [email or web address]) Subjective Physical Therapy Visit Type Type Treatment Note Visit Start Time 15:35 Visit Stop Time 16:05 Total Visit Minutes 30 Number of STEEL HEATER Visits 0 Physical Therapy Visit Comments Patient Comments pt agreeable to do PT Therapy Pain Assessment Pain Present Pain Present Denied Pain M4 PT-IP Mobility and Gait Start: 08/14/18 11:53 Freq: NEEDED Status: Active Protocol: Document 08/17/18 15:35 AB (Rec: 08/17/18 16:25 AB [id number]) PT-Bed Mobility Assessment Supine to Sit Supine to Sit Standby Assistance 1 Person Assistance Head of Bed Elevated Bedrails Sit to Supine Sit to Supine Standby Assistance Scooting Scooting Up and Down in Bed Standby Assistance PT-Transfer Assessment Sit to and From Stand Sit to and from Stand Contact Guard Assistance Minimal Assistance Equipment Transfer Assistive Device Gait Belt Front Wheeled Walker Orthotic/Prosthetic Devices or Brace: No Transfers Transfer Destination Chair Transfer Ability Level of Assist Minimal Assistance 1 Person Assistance Use of Upper Extremities Comments Mobility Comments Per OT, stated that she talked to Dr. Mina and stated that pt is ok to be seen for therapy and informed that pt received blood transfusion that should help with his BP. pt agreeable to get out of bed . BP, MN, O2 sat monitored. BP in supine with HOB 45 de/73 MN 109 O2 sat 95-96%. pt completed supine to sit SBA. BP in sittin/82 MN 108-120 O2 sat: 95%. pt tends to breath through the mouth. pt c/o slight blurry vision but after seated rest, did not worsen. pt cued to breath through the nose. Nurse stated that they have to change pt's bed and pt will need to get out of bed. pt completed stand pivot transfer bed to chair using FWW min A and cues. pt presents with unsteadiness during transfer. HR went up to 133 during transfers. BP sitting on chair after transfer: 132/63 MN 110-113 O2 sat 87-91% with cues for deep breathing. pt agreed to do more standing. completed sit to stand from the chair CGA. BP in standing : 77/62 MN 110 O2 sat: 89-113 . instructed pt to sit back down. BP checked again: 135/ 60 MN 110 O2 sat 92%. pt completed another standing CGA with sit to stand. BP in standin/66 MN 120 O2 sat 95%. pt c/o feeling SOB. After ~ 2 min of standing: BP: 103/62 MN 120 O2 sat 94%. pt sat back down. pt completed stand step transfer using FWW from chair to bed min A and cues. completed sit to supine SBA. at end of tx seseeion supine in bed HOB 30 deg: BP 128/74 MN 93-103 O2 sat 87- 89%. cued pt to do deep breathing. call light and table placed within reach. informed NAC regarding BP/HR/ O2 sat readings. M5 PT-IP Objective Assessments Start: 08/14/18 11:53 Freq: NEEDED Status: Active Protocol: Document 08/14/18 15:41 [facility] (Rec: 08/14/18 15:49 [facility] [id number]) Orientation Orientation/Cognition Level of Alertness Alert Strength Lower Extremity Strength Assessment Bilaterally Impaired M6 PT-IP Treatment Start: 08/14/18 11:53 Freq: NEEDED Status: Active Protocol: Document 08/16/18 13:31 SA (Rec: 08/16/18 13:45 SA [id number]) Physical Therapy Treatment Exercises Exercises Ankle Pumps Gluteal Sets Quad Sets Heel Slides Straight Leg Raises Other Treatments Other Treatment Performed Pt HR between 89-111 with LE movements in bed. M7 PT-IP Assessment and Plan Start: 08/14/18 11:53 Freq: NEEDED Status: Active Protocol: Document 08/17/18 15:35 AB (Rec: 08/17/18 16:25 AB [id number]) PT Summary Assessment and Plan Potential Rehabilitation Potential Fair Summary Impairments Strength Balance Bed Mobility Transfers Gait Activity Tolerance Progress Towards Goals Slow Progress due to Medical Issues Slow Progress due to Activity Tolerance Assessment Summary pt with decrease activity tolerance as evidenced by decrease BP with upright activity, decrease O2 sat and irregular HR. Will have to continue assessing pt's progress and d/c plan depending on progress but at this time will require SNF rehab. Goals Bed Mobility Goal Independent Transfer Goal Independent Gait Goal Standby Assistance Gait Distance 150 Other Goals up/down 9 steps with rail Days to Meet Goals 4 Frequency of Treatment Frequency Of Treatment Once a Day Treatment Plan Physical Therapy Treatment Plan Bed Mobility Training Transfer Training Gait Training Therapeutic Exercise Balance Retraining Discharge Planning Neuromuscular Re-ed Other Recommendations and Next Treatment Advance gait & standing Focus balance as tolerated Recommendations To Nursing Amount of Assist Needed 1 Person Assist Discharge Recommendations PT Discharge Recommendations SNF Rehab
--- NOTE | 2018-08-17 17:16 | OT.IP.TRT ---
Current Diagnoses Syncope and collapse (08/13/18) Occupational Therapy Treatment Note M2 OT-IP Current Condition Start: 08/14/18 17:49 Freq: Status: Active Protocol: Document 08/14/18 16:32 [facility] (Rec: 08/14/18 18:07 [facility] [id number]) Occupational Therapy Current Condition Current Condition Evaluation Date 08/14/18 Treatment Diagnosis decreased indep in self care, functional mobility due to hypotension Diagnosis Onset Date 08/13/18 Post Operative Precautions Other Precautions monitor BP, 3L O2 M3 OT- IP Subjective and Pain Start: 08/14/18 17:49 Freq: Status: Active Protocol: Document 08/17/18 17:07 [facility] (Rec: 08/17/18 17:16 [facility] [email or web address]) OT- Subjective Occupational Therapy Visit Type Type Treatment Note Visit Start Time 15:35 Visit Stop Time 15:55 Total Visit Minutes 20 Occupational Therapy Visit Comments Patient Comments Spoke to Dr. Mina regarding pt's status and whether therapy appropriate to continue to see. Dr. Mina states pt doing better after transfusion and states okay to be seen. Pt agreeable to get up. Pt seen by OT and PT. OT Pain Assessment Pain When Pain Assessed At Rest Pain Present Pain Present Denied Pain M4 OT- IP ADL's Start: 08/14/18 17:49 Freq: Status: Active Protocol: Document 08/16/18 09:39 [facility] (Rec: 08/16/18 12:24 [facility] [id number]) OT ADL-Grooming General Evaluation Grooming Ability Standby Assistance Areas Needing Assistance Retrieving/Set-up of Grooming Items Combing/Brushing Hair Face Washing Comments OT Grooming Comments afer set up in bed due to hypotension when sitting EOB OT ADL-Oral Care General Eval Oral Care Ability Standby Assistance Areas of Assistance Brushing Teeth Retrieving/Set-Up of Items Comments Oral Care Comments afer set up in bed due to hypotension when sitting EOB OT ADL-Bathing Comments OT Bathing Comments Pt set up with shampoo cap in bed. He needed min assist to massage and dry head due to mild SOB with this activity. M5 OT- IP IADL's Start: 08/14/18 17:49 Freq: Status: Active Protocol: Document 08/14/18 16:32 [facility] (Rec: 08/14/18 18:07 [facility] [id number]) OT-Instrumental Activities of Daily Living Deficits IADL Deficits Identified Deficits Home Safety Awareness Awareness of Need for Assistance at Home Good Awareness Medication Management Medication Management No Deficits Identified Money Management Money Management Caregiver Provides Assistance Meal Preparation Meal Preparation Caregiver Provides Assist Bindery Helper Bindery Helper Caregiver Provides Assist Driving Driving Caregiver Provides Assist M6 OT- IP Functional Cognition Start: 08/14/18 17:49 Freq: Status: Active Protocol: Document 08/14/18 16:32 P[facility] (Rec: 08/14/18 18:07 [facility] [id number]) Cognitive Factors Limiting Selfcare Function Cognitive Ability Level of Alertness Alert Patient Orientation Name Place Situation Attention Span Ability Capable of Focused Attention Ability to Follow Commands Able to Follow One Step Commands Cognitive Comments Cognitive Assessment Comments Pt alert with good participation and effort this session. He recalls recent events. OT- Vision and Hearing OT- Hearing Assessment OT- Hearing Assessment WFL OT- Vision Assessment Visual Acuity WFL Vision Assessment Comments Pt denies any recent vision changes M7 OT- IP Mobility and Balance Start: 08/14/18 17:49 Freq: Status: Active Protocol: Document 08/17/18 17:07 [facility] (Rec: 08/17/18 17:16 [facility] [email or web address]) OT- Bed Mobility Assessment Rolling Type of Rolling Roll to Left Level of Assistance Standby Assistance Head of Bed Elevated Bedrails Supine to Sit Supine to Sit Assist Standby Assistance 1 Person Assistance OT-Transfer Assessment Sit to and From Stand Sit to and from Stand Contact Guard Assistance 1 Person Assistance Transfers Transfer Ability Minimal Assistance 1 Person Assistance Technique Transfer Destination Chair Transfer Technique Stand Step Pivot Devices Transfer Assistive Devices Gait Belt Front Wheeled Walker Comments Mobility Comments Pt bp 45 degrees HOB up 116/73 hr 109 O2 on 2L 95-96% Sitting 126/82 HR 119 O2 on 2L 93% After transfer to recliner 132 /63 HR 133 O2 on 2L 85% Standing 77/62 , after sitting back donw 135/60 hr 114, and standing again 103/62 hr 119 94% O2 on 2L OT- Balance Assessment Sitting Balance and Reactions Static Sitting Balance Ability Normal Dynamic Sitting Balance Ability Good Standing Balance and Reactions Static Standing Balance Ability Fair M8 OT- IP Objective Assessments Start: 08/14/18 17:49 Freq: Status: Active Protocol: Document 08/14/18 16:32 PJM (Rec: 08/14/18 18:07 PJM [id number]) OT Gross Range of Motion Upper Extremity Range of Motion Assessment Within Functional Limits OT Strength Upper Extremity Strength Assessment Within Functional Limits OT- Coordination Assessment Comments Coordination Comments BUE WFL per pt OT-Muscle Tone Assessment Muscle Tone WNL Yes OT Sensation Assessment Comments Summary Comments WNL BUE per pt Edema Edema Absent M9 OT- IP Assessment and Plan Start: 08/14/18 17:49 Freq: Status: Active Protocol: Document 08/17/18 17:07 [facility] (Rec: 08/17/18 17:16 [facility] [id number]) OT Summary Assessment and Plan Potential Rehabilitation Potential Good Summary OT Impairments Strength Functional Mobility Grooming Dressing Toileting Bathing Toilet Transfers Shower Transfers Progress Towards Goals Slow Progress due to Medical Issues Slow Progress due to Activity Tolerance Assessment Summary Pt BP continues to drop while standing, however more stable today. Pt's activity tolerance limits pt for more participation in therapy at this time. Pt is very cooperative and will benefit from skilled rehab prior to going home. Goals Grooming Goal Standby Assistance Dressing Goal Standby Assistance Toileting Goal Standby Assistance Bathing Goal Minimal Assistance Toilet Transfer Goal Standby Assistance Shower Transfer Goal Contact Guard Assistance Patient/Caregiver Education Goal Demonstrate Energy Conservation and Pacing Days to Meet Goals 5 Frequency of Treatment Frequency Of Treatment Once a Day Treatment Plan OT Treatment Plan ADL Training Functional Mobility Patient/Family Education Discharge Planning Discharge Recommendations OT Discharge Recommendations SNF Rehab
[2018-08-17] MEDS: WARFARIN 1 MG TABLET PO (17:38)
[2018-08-17] MEDS: ATORVASTATIN 20 MG TABLET 40 MG PO (20:30)
[2018-08-17] MEDS: LATANOPROST 0.005% OPHTH 2.5 ML 1 DROPS EYE-LEFT (20:30)
[2018-08-18] VITALS (20 sets, daily range): BP systolic 73–145; BP diastolic 44–81; PULSE 75–124; RESP 17–20; TEMP 36.3–36.7; O2SAT 83–98
--- NOTE | 2018-08-18 02:09 | PC.NURSE ---
1530: Up with PT/OT, bp decreased/dizzy. 1630: Alert/oriented. Denies pain. LS decreased, crackles in bases. 2l 94%. Shortness of breath intermittently. HR tachy, 110. Multiple skin abrasions/bruises due to history of recent falls. Heels elevated/floated. Coccyx red, waffle cushion present/switched to colin bed. Bed alarm on. 2300: Alert. Denies pain. 2L 95%. Using call light appropriately.
--- NOTE | 2018-08-18 03:50 | PC.NURSE ---
Addendum entered by Casper Anne R.N. 08/18/18 05:37: sleeping well without c/o overt pain or discomfort. Original Note: assumed care from Therese MYERS. Pt supine with eyes closed. RR even and unlaboured. Continnue to monitor.
[2018-08-18] MEDS: SODIUM CHLORIDE 0.9% FLUSH 10 ML IV ×3 (04:28→21:25)
[2018-08-18] MEDS: ALBUTEROL/IPRATROPIUM 3 ML AMPUL INH ×3 (06:29→17:23)
[2018-08-18] MEDS: FLUDROCORTISONE 0.1 MG TABLET PO (08:30)
[2018-08-18] MEDS: MIDODRINE HCL 5 MG TABLET 10 MG PO ×3 (08:30→18:17)
[2018-08-18] MEDS: CHOLECALCIFEROL (VITAMIN D3) 1,000 UNIT TABLET 1000 UNIT PO (08:31)
[2018-08-18] MEDS: CLOPIDOGREL 75 MG TABLET PO (08:31)
[2018-08-18] MEDS: guaiFENesin ER 600 MG TAB PO ×2 (08:32→21:25)
[2018-08-18] MEDS: LISINOPRIL 5 MG TABLET PO (08:32)
--- NOTE | 2018-08-18 09:32 | PT.IPTN ---
Current Diagnoses Syncope and collapse (08/13/18) Physical Therapy Treatment Note M2 PT-IP Current Condition Start: 08/14/18 11:53 Freq: NEEDED Status: Active Protocol: Document 08/14/18 15:41 [facility] (Rec: 08/14/18 15:49 [facility] [id number]) Physical Therapy Current Condition Current Condition Evaluation Date 08/14/18 Treatment Diagnosis hypotension, weakness Precautions Other Precautions check BP Weight Bearing Status Weight Bearing Status Weight Bear as Tolerated M3 PT-IP Subjective Start: 08/14/18 11:53 Freq: NEEDED Status: Active Protocol: Document 08/18/18 09:32 AB (Rec: 08/18/18 12:22 AB [id number]) Subjective Physical Therapy Visit Type Type Treatment Note Visit Start Time 09:32 Visit Stop Time 09:46 Total Visit Minutes 14 Number of VOLLEYBALL PLAYER Visits 0 Physical Therapy Visit Comments Patient Comments pt agreeable to do PT M4 PT-IP Mobility and Gait Start: 08/14/18 11:53 Freq: NEEDED Status: Active Protocol: Document 08/18/18 09:32 AB (Rec: 08/18/18 12:22 AB [id number]) PT-Bed Mobility Assessment Supine to Sit Supine to Sit Standby Assistance Sit to Supine Sit to Supine Standby Assistance Scooting Scooting to Edge of Bed Standby Assistance PT-Transfer Assessment Comments Mobility Comments Vitals monitored: supine with HOB elevated @ 30 deg. BP: 126/67 HI 107 O2 sat 95% with O2; pt completed supine to sit SBA. c/o slight blurry vision. BP sittin/69 HI 120 O2 sat 92%. instructed pt to just rest seated. after ~ 2min checked on BP again seated on EOB: 87/64 HI 124 O2sat 94%. instructed pt to lay back in bed and pt completed with SBA. BP checked in supine HOB elevated to ~ 30 deg. BP: 121/68 HI 94-115 O2 sat: 92% M5 PT-IP Objective Assessments Start: 08/14/18 11:53 Freq: NEEDED Status: Active Protocol: Document 08/14/18 15:41 [facility] (Rec: 08/14/18 15:49 [facility] [id number]) Orientation Orientation/Cognition Level of Alertness Alert Strength Lower Extremity Strength Assessment Bilaterally Impaired M6 PT-IP Treatment Start: 08/14/18 11:53 Freq: NEEDED Status: Active Protocol: Document 08/16/18 13:31 SA (Rec: 08/16/18 13:45 SA [id number]) Physical Therapy Treatment Exercises Exercises Ankle Pumps Gluteal Sets Quad Sets Heel Slides Straight Leg Raises Other Treatments Other Treatment Performed Pt HR between 89-111 with LE movements in bed. M7 PT-IP Assessment and Plan Start: 08/14/18 11:53 Freq: NEEDED Status: Active Protocol: Document 08/18/18 09:32 AB (Rec: 08/18/18 12:22 AB [id number]) PT Summary Assessment and Plan Potential Rehabilitation Potential Fair Summary Impairments Strength Balance Bed Mobility Transfers Gait Activity Tolerance Progress Towards Goals Slow Progress due to Medical Issues Assessment Summary pt was unable to do much activity this morning due to orthostatic hypotension. will need to monitor progress to determine d/c plan. Goals Bed Mobility Goal Independent Transfer Goal Independent Gait Goal Standby Assistance Gait Distance 150 Other Goals up/down 9 steps with rail Days to Meet Goals 5 Frequency of Treatment Frequency Of Treatment Once a Day Treatment Plan Physical Therapy Treatment Plan Bed Mobility Training Transfer Training Gait Training Therapeutic Exercise Balance Retraining Discharge Planning Neuromuscular Re-ed Other Recommendations and Next Treatment Advance gait & standing Focus balance as tolerated Recommendations To Nursing Amount of Assist Needed 1 Person Assist Discharge Recommendations PT Discharge Recommendations SNF Rehab
[2018-08-18] MEDS: TIOTROPIUM BROMIDE 18 MCG INHALER INH (09:45)
[2018-08-18] MEDS: FLUTICASONE/SALMETEROL 500/50 14 PUFF DISKUS INH ×2 (09:45→17:23)
--- NOTE | 2018-08-18 10:49 | P.PN_ITS ---
Subjective Date Patient Seen: 08/18/18 Time Patient Seen: 10:48 Interval history: He is seen today to follow-up the near syncope, orthostatic hypotension and anemia. Unfortunately, despite the transfusion he remains hypotensive when sitting up. His blood pressure this morning when physical therapy approached him and had him sit up dropped to 87/64. Yesterday it was down to 77/62. When he is lying down it is much higher at 145/80. We have not resumed any of the blood pressure medicines. He will need to be tried on maneuvers to help control this orthostatic hypotension including f ludrocortisone, Midodrine and lower extremity venous compression stockings. His heart rate is running 93-111. He is at 91% on 3 L nasal cannula. There are no new labs today. Exam Vital Signs (past 8 hours): - 08/18/18 04:00 08/18/18 06:29 08/18/18 08:00 Temperature 97.4 F L 97.5 F L Pulse Rate 93 H 75 108 H Respiratory Rate 20 18 20 Blood Pressure 145/80 H 137/72 Pulse Oximetry 96 91 98 08/18/18 09:32 08/18/18 09:40 08/18/18 09:46 Temperature Pulse Rate 107 H 120 H Respiratory Rate Blood Pressure 126/67 106/69 Pulse Oximetry 94 95 92 08/18/18 09:48 08/18/18 09:51 Temperature Pulse Rate 124 H 106 H Respiratory Rate Blood Pressure 87/64 L Pulse Oximetry 94 93 Fraction of Inspired Oxygen 28 Oxygen Delivery Method Nasal Cannula Oxygen Flow Rate 3 Narrative Exam Narrative: He is alert and oriented x3 and in no apparent distress. Heart is regular rate and rhythm without murmur. Lungs are clear to auscultation bilaterally. Extremities have no ankle edema. Objective Labs Result Diagrams: 08/17/18 05:39 08/17/18 05:39 Assessment & Plan Assessment & Plan narrative: Syncope, present on admission Secondary to Orthostatic Hypotension, initially thought to be from Volume depletion but now appearing chronic. -compression stockings, midodrine and fludrocortisone will be started today. Anemia, chronic -he and his tell me that he has not had a full GI workup for this anemia which has been present now for several months but has been not worked up because other issues have taken priority. -Consider endoscopic workup as an outpatient or inpatient depending on the trend. -Repeat CBC tomorrow. 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 Holding Spiriva. Chronic Atrial Fibrillation - continue Plavix and Coumadin. Check INR tomorrow. It was 2.3 on 08/15. - he has moderate to severe mitral stenosis, probably unchanged, on his echocardiogram today. 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 Plan: Continue albuterol, vitamin-C, atorvastatin, coenzyme Q10, doxazosin, latanoprost, lisinopril, Dulera, warfarin. Goal: improved orthostatic hypotension/syncope Quality VTE Deep Vein Thrombosis/Pulmonary Embolism Present on Admission: No
--- NOTE | 2018-08-18 11:03 | OT.IP.TRT ---
Current Diagnoses Syncope and collapse (08/13/18) Occupational Therapy Treatment Note M2 OT-IP Current Condition Start: 08/14/18 17:49 Freq: Status: Active Protocol: Document 08/14/18 16:32 PJM (Rec: 08/14/18 18:07 PJM [id number]) Occupational Therapy Current Condition Current Condition Evaluation Date 08/14/18 Treatment Diagnosis decreased indep in self care, functional mobility due to hypotension Diagnosis Onset Date 08/13/18 Post Operative Precautions Other Precautions monitor BP, 3L O2 M3 OT- IP Subjective and Pain Start: 08/14/18 17:49 Freq: Status: Active Protocol: Document 08/18/18 11:02 CCC (Rec: 08/18/18 11:03 CCC [id number]) OT- Subjective Occupational Therapy Visit Type Type Patient Unavailable Notes Pt states just worked with PT earlier and BP went down while sitting up at edge of bed 87/ 64, therefore hold from OT today. To attempt later if appropriate.
--- NOTE | 2018-08-18 13:42 | PC.NURSE ---
Pts BP continues to drop when sitting up - systolic 87 this am when working with PT. Has started on new med to help sustain orthostatic BP this am. Also applied GENEVA hose to help with same. Continue to monitor BP carefully when standing.
[2018-08-18] MEDS: ACETAMINOPHEN 325 MG TABLET 650 MG PO (15:46)
[2018-08-18] MEDS: WARFARIN 1 MG TABLET PO (17:06)
[2018-08-18] MEDS: LATANOPROST 0.005% OPHTH 2.5 ML 1 DROPS EYE-LEFT (21:25)
[2018-08-18] MEDS: ATORVASTATIN 20 MG TABLET 40 MG PO (21:25)
[2018-08-19] VITALS (14 sets, daily range): BP systolic 92–136; BP diastolic 53–68; PULSE 82–99; RESP 15–18; TEMP 36.3–36.9; O2SAT 92–97
--- NOTE | 2018-08-19 00:30 | PC.NURSE ---
Color Shop Helper Note: 0025: Sleeping, arousable. Vital signs stable. IV in place in rt AC. Pt remains on telemetry. He continues on oxygen 2L/NC. No complaint of discomfort or dizziness.
[2018-08-19 05:27] LABS: INR 2.3 (0.9-1.3)
[2018-08-19 05:42] LABS: Basophils Absolute Auto 0 /uL (0-100); Basophils Percent Auto 0.3 % (0-2); Eosinophils Absolute Auto 300 /uL (0-450); Eosinophils Percent Auto 2.4 % (2-4); Hematocrit 34.6 % (41-53); Hemoglobin 11.5 g/dL (13.5-17.5); Lymphocytes Absolute Auto 1300 /uL (1100-4500); Lymphocytes Percent Auto 11.2 % (25-40); Mean Corpuscular HGB Conc 33.1 % (30-36); Mean Corpuscular Hemoglobin 32.3 PG (26-34); Mean Corpuscular Volume 97.5 fL (80-100); Monocytes Absolute Auto 1100 /uL (0-900); Monocytes Percent Auto 9.8 % (3-14); Neutrophils Absolute Auto 8600 /uL (1500-7000); Neutrophils Percent Auto 76.3 % (50-75); Platelet Count 305 X10^3/uL (150-400); Red Blood Cell Count 3.55 X10^6/uL (4.5-5.9); Red Cell Distribution Width 24.9 % (11.6-14.8); White Blood Cell Count 11.2 X10^3/uL (4.5-11.0)
[2018-08-19 05:44] LABS: Add Manual Diff / Slide Review SLIDE REVIEW
[2018-08-19] MEDS: ALBUTEROL/IPRATROPIUM 3 ML AMPUL INH ×3 (06:05→18:17)
[2018-08-19] MEDS: MIDODRINE HCL 5 MG TABLET 10 MG PO ×3 (06:16→17:07)
[2018-08-19 07:14] LABS: Macrocytosis 2+; Poikilocytosis 1+
[2018-08-19] MEDS: FLUTICASONE/SALMETEROL 500/50 14 PUFF DISKUS INH ×2 (08:08→18:17)
[2018-08-19] MEDS: TIOTROPIUM BROMIDE 18 MCG INHALER INH (08:30)
--- NOTE | 2018-08-19 08:44 | P.PN_ITS ---
Subjective Date Patient Seen: 08/19/18 Time Patient Seen: 08:44 Interval history: He says he feels much better today and that is evident by a faster speaking rate and louder volume. Yesterday he was started on midodrine, fludrocortisone and knee-high compression stockings. Despite feeling better and those interventions his blood pressure this morning when he was sitting by the bed was 77 systolic. When he laid down it was 111 systolic. The INR is 2.3 and hemoglobin is 11.5, stable. Exam Vital Signs (past 8 hours): - 08/19/18 04:00 08/19/18 06:07 08/19/18 08:00 Temperature 97.4 F L 98.2 F Pulse Rate 99 H 94 H 97 H Respiratory Rate 18 16 16 Blood Pressure 133/68 136/65 Pulse Oximetry 95 97 92 Fraction of Inspired Oxygen 28 Oxygen Delivery Method Nasal Cannula Oxygen Flow Rate 2 Narrative Exam Narrative: He is alert and oriented x3 and in no apparent distress. He says he feels much better today and that is evident by a faster speaking rate and louder volume. Heart is regular rate and rhythm without murmur. Lungs are clear to auscultation bilaterally. Extremities have no ankle edema. He is wearing knee-high compression stockings. Objective Labs Result Diagrams: 08/19/18 04:56 08/17/18 05:39 Labs: Laboratory Results - last 24 hr 08/19/18 08/19/18 04:56 04:56 WBC 11.2 H RBC 3.55 L Hgb 11.5 L Hct 34.6 L MCV 97.5 MCH 32.3 MCHC 33.1 RDW 24.9 H Plt Count 305 Neut % (Auto) 76.3 H Lymph % (Auto) 11.2 L [place] % (Auto) 9.8 Eos % (Auto) 2.4 Baso % (Auto) 0.3 Neut # (Auto) 8600 H Lymph # (Auto) 1300 [place] # (Auto) 1100 H Eos # (Auto) 300 Baso # (Auto) 0 RBC Morphology Not Reportable Poikilocytosis 1+ H Macrocytosis 2+ H PT 27.0 H INR 2.3 H Assessment & Plan Assessment & Plan narrative: Syncope, present on admission Secondary to Orthostatic Hypotension, initially thought to be from Volume depletion but now appearing chronic. -compression stockings, midodrine and fludrocortisone were all started yesterday and appear to be somewhat symptomatically effective. We will change the compression stockings to thigh-high and anticipate that that will also help. Encourage oral intake. Despite feeling better his systolic pressure when sitting up is only 77. Anemia, chronic -he and his tell me that he has not had a full GI workup for this anemia which has been present now for several months but has been not worked up because other issues have taken priority. -Consider endoscopic workup as an outpatient or inpatient depending on the trend. -Repeat CBC today shows stability. 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 Holding Spiriva. Chronic Atrial Fibrillation - continue Plavix and Coumadin. INR today at 2.3 stable - he has moderate to severe mitral stenosis, probably unchanged, on his echocardiogram today. 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 Plan: Continue albuterol, vitamin-C, atorvastatin, coenzyme Q10, doxazosin, latanoprost, Dulera, warfarin. Holding metoprolol and lisinopril. Goal: improved orthostatic hypotension/syncope and then return to home or SNF rehab. Quality VTE Deep Vein Thrombosis/Pulmonary Embolism Present on Admission: No
[2018-08-19] MEDS: LISINOPRIL 5 MG TABLET PO (09:35)
[2018-08-19] MEDS: CLOPIDOGREL 75 MG TABLET PO (09:35)
[2018-08-19] MEDS: FLUDROCORTISONE 0.1 MG TABLET PO (09:35)
[2018-08-19] MEDS: CHOLECALCIFEROL (VITAMIN D3) 1,000 UNIT TABLET 1000 UNIT PO (09:36)
[2018-08-19] MEDS: SODIUM CHLORIDE 0.9% FLUSH 10 ML IV ×2 (09:36→20:25)
[2018-08-19] MEDS: guaiFENesin ER 600 MG TAB PO ×2 (09:36→20:25)
--- NOTE | 2018-08-19 13:12 | PT.IPTN ---
Current Diagnoses Syncope and collapse (08/13/18) Physical Therapy Treatment Note M2 PT-IP Current Condition Start: 08/14/18 11:53 Freq: NEEDED Status: Active Protocol: Document 08/14/18 15:41 LR (Rec: 08/14/18 15:49 [facility] [id number]) Physical Therapy Current Condition Current Condition Evaluation Date 08/14/18 Treatment Diagnosis hypotension, weakness Precautions Other Precautions check BP Weight Bearing Status Weight Bearing Status Weight Bear as Tolerated M3 PT-IP Subjective Start: 08/14/18 11:53 Freq: NEEDED Status: Active Protocol: Document 08/19/18 10:50 CLB (Rec: 08/19/18 13:12 CLB [id number]) Subjective Physical Therapy Visit Type Type Treatment Note Visit Start Time 10:50 Visit Stop Time 11:10 Total Visit Minutes 20 Number of SUMO WRESTLER Visits 1 Physical Therapy Visit Comments Patient Comments pt agreeable to do PT Therapy Pain Assessment Pain Present Pain Present Denied Pain M4 PT-IP Mobility and Gait Start: 08/14/18 11:53 Freq: NEEDED Status: Active Protocol: Document 08/19/18 10:50 CLB (Rec: 08/19/18 13:12 CLB [id number]) PT-Bed Mobility Assessment Supine to Sit Supine to Sit Standby Assistance Sit to Supine Sit to Supine Standby Assistance Scooting Scooting to Edge of Bed Standby Assistance Scooting Up and Down in Bed Standby Assistance PT-Transfer Assessment Sit to and From Stand Sit to and from Stand Contact Guard Assistance Equipment Transfer Assistive Device Gait Belt Front Wheeled Walker Orthotic/Prosthetic Devices or Brace: No Transfers Transfer Destination Bed Transfer Ability Level of Assist Contact Guard Assistance 1 Person Assistance Comments Mobility Comments BP supine HOB @23 deg. 118/64, OK 92, O2 96% on 3L. BP sitting EOB 92/58, OK 117, O2 94% on 3L. BP in standing 108/59 then 87/ 64 after 2 minutes. Pt returned to supine BP 105/66, OK 92, O2 94% on 3L pt c/o SOB . M5 PT-IP Objective Assessments Start: 08/14/18 11:53 Freq: NEEDED Status: Active Protocol: Document 08/14/18 15:41 [facility] (Rec: 08/14/18 15:49 [facility] [id number]) Orientation Orientation/Cognition Level of Alertness Alert Strength Lower Extremity Strength Assessment Bilaterally Impaired M6 PT-IP Treatment Start: 08/14/18 11:53 Freq: NEEDED Status: Active Protocol: Document 08/16/18 13:31 SA (Rec: 08/16/18 13:45 SA [id number]) Physical Therapy Treatment Exercises Exercises Ankle Pumps Gluteal Sets Quad Sets Heel Slides Straight Leg Raises Other Treatments Other Treatment Performed Pt HR between 89-111 with LE movements in bed. M7 PT-IP Assessment and Plan Start: 08/14/18 11:53 Freq: NEEDED Status: Active Protocol: Document 08/19/18 10:50 CLB (Rec: 08/19/18 13:12 CLB [id number]) PT Summary Assessment and Plan Summary Progress Towards Goals Slow Progress due to Medical Issues Assessment Summary Pt continues to have limited activity due to orthostatic hypotension. Pt c/o SOB at end of tx. Will have to continue assessing pt's progress and d/ c plan depending on progress but at this time will require SNF rehab. Goals Bed Mobility Goal Independent Transfer Goal Independent Gait Goal Standby Assistance Gait Distance 150 Other Goals up/down 9 steps with rail Days to Meet Goals 5 Frequency of Treatment Frequency Of Treatment Once a Day Treatment Plan Physical Therapy Treatment Plan Bed Mobility Training Transfer Training Gait Training Therapeutic Exercise Balance Retraining Discharge Planning Neuromuscular Re-ed Other Recommendations and Next Treatment Advance gait & standing Focus balance as tolerated Recommendations To Nursing Amount of Assist Needed 1 Person Assist Discharge Recommendations PT Discharge Recommendations SNF Rehab
[2018-08-19] MEDS: WARFARIN 1 MG TABLET PO (17:07)
[2018-08-19] MEDS: ATORVASTATIN 20 MG TABLET 40 MG PO (20:24)
[2018-08-19] MEDS: LATANOPROST 0.005% OPHTH 2.5 ML 1 DROPS EYE-LEFT (20:25)
[2018-08-20] VITALS (15 sets, daily range): BP systolic 99–138; BP diastolic 56–72; PULSE 95–120; RESP 17–24; TEMP 36.3–36.6; O2SAT 88–98
--- NOTE | 2018-08-20 03:00 | PC.NURSE ---
Continuous Drier Operator Note: 0000: Sleeping; respirations unlabored. Not disturbed at this time. 0145: Vital signs stable. IV in place in rt forearm. Pt remains on telemetry. He continues on O2 2L/NC. Pt denies any dizziness, pain or discomfort.
[2018-08-20] MEDS: FLUTICASONE/SALMETEROL 500/50 14 PUFF DISKUS INH ×2 (05:25→17:53)
[2018-08-20] MEDS: ALBUTEROL/IPRATROPIUM 3 ML AMPUL INH ×3 (05:25→17:53)
[2018-08-20] MEDS: MIDODRINE HCL 5 MG TABLET 10 MG PO ×3 (05:28→18:05)
[2018-08-20] MEDS: TIOTROPIUM BROMIDE 18 MCG INHALER INH (05:42)
[2018-08-20 05:45] LABS: INR 2.2 (0.9-1.3); Prothrombin Time 25.9 SECONDS (10.1-12.7)
[2018-08-20 05:49] LABS: Basophils Absolute Auto 0 /uL (0-100); Basophils Percent Auto 0.2 % (0-2); Blood Urea Nitrogen 29 mg/dL (9-20); Calcium 8.7 mg/dL (8.4-10.2); Carbon Dioxide 28 mmol/L (22-32); Chloride 106 mmol/L (98-107); Eosinophils Absolute Auto 200 /uL (0-450); Eosinophils Percent Auto 2.3 % (2-4); Estimated Glomerular Filt Rate > 60.0 mL/min (>60); Glucose 100 mg/dL (80-110); HEMOLYSIS < 15 (0-50); Hematocrit 34.2 % (41-53); Hemoglobin 11.3 g/dL (13.5-17.5); Lymphocytes Absolute Auto 1300 /uL (1100-4500); Lymphocytes Percent Auto 12.2 % (25-40); Mean Corpuscular HGB Conc 33.2 % (30-36); Mean Corpuscular Hemoglobin 32.6 PG (26-34); Mean Corpuscular Volume 98.3 fL (80-100); Monocytes Absolute Auto 1100 /uL (0-900); Monocytes Percent Auto 10.7 % (3-14); Neutrophils Absolute Auto 7700 /uL (1500-7000); Neutrophils Percent Auto 74.6 % (50-75); Platelet Count 304 X10^3/uL (150-400); Potassium 3.9 mmol/L (3.4-5.1); Red Blood Cell Count 3.48 X10^6/uL (4.5-5.9); Red Cell Distribution Width 24.4 % (11.6-14.8); Sodium 139 mmol/L (137-145); White Blood Cell Count 10.3 X10^3/uL (4.5-11.0)
[2018-08-20 06:25] LABS: Add Manual Diff / Slide Review SLIDE REVIEW
--- NOTE | 2018-08-20 06:54 | PM.PN.1 ---
Subjective Date Patient Seen: 08/20/18 Interval history: Guillermo Sun is an 83-year-old male with a past medical history significant for coronary artery disease status post stent x 2, chronic atrial fibrillation on warfarin, permanent pacemaker, and chronic hypoxemic respiratory failure due to COPD which is oxygen dependent on 3L baseline who was discharged to a SNF from [facility] 1 week ago after treatment for pneumonia and had a syncopal episode with LOC. The patient is resting in bed comfortably. He reports mild lightheadedness upon standing this morning. He continues to have significant orthostasis. He currently denies headache, lightheadedness or dizziness, near-syncope, chest pain, abdominal pain, nausea, vomiting, fever, chills, dysuria, diarrhea or constipation. He endorses chronic cough and shortness of breath and he is on his baseline oxygen requirements of 3 L. He is voiding and eliminating without difficulty. He is up ambulating with assistance. He does not use assist device for ambulation at home. Exam Vital Signs (past 8 hours): - 08/20/18 00:45 08/20/18 01:46 08/20/18 05:27 Temperature 97.6 F Pulse Rate 96 H Respiratory Rate 17 Blood Pressure 134/72 Pulse Oximetry 94 94 96 08/20/18 06:15 Temperature 97.7 F Pulse Rate 95 H Respiratory Rate 19 Blood Pressure 112/71 Pulse Oximetry 95 Fraction of Inspired Oxygen 28 Oxygen Delivery Method Nasal Cannula Oxygen Flow Rate 2 Narrative Exam Narrative: General: Elderly gentleman sitting in bed and in no acute distress, well-developed, well-nourished, appropriately interactive. HEENT: Normocephalic, atraumatic. External ears without defect. Pupils equal, round, and reactive to light. Anicteric sclerae, moist conjunctivae, and no lid lag. Neck: Supple with full range of motion. No lymphadenopathy or thyromegaly. Cardiovascular: Regular rate and rhythm without murmurs, rubs, or gallops appreciated. Pulmonary: Clear to auscultation bilaterally without crackles, wheezes, or rhonchi. Normal respiratory effort with no use of accessory muscles. Abdomen: Soft, bowel sounds present, nontender, nondistended. No hepatosplenomegaly or masses appreciated. Extremities: No clubbing, cyanosis, or edema. Skin: Normal temperature, turgor, and texture; no rash, ulcers, or subcutaneous nodules appreciated. Several scars on face bilaterally. Neurological: Cranial nerves grossly intact. Psychiatric: Normal mood and affect. Alert and oriented to person, place, and time. Objective Labs Result Diagrams: 08/20/18 05:03 08/20/18 05:03 Labs: Laboratory Results - last 24 hr 08/19/18 08/20/18 08/20/18 04:56 05:03 05:03 WBC 10.3 RBC 3.48 L Hgb 11.3 L Hct 34.2 L MCV 98.3 MCH 32.6 MCHC 33.2 RDW 24.4 H Plt Count 304 Neut % (Auto) 74.6 Lymph % (Auto) 12.2 L [place] % (Auto) 10.7 Eos % (Auto) 2.3 Baso % (Auto) 0.2 Neut # (Auto) 7700 H Lymph # (Auto) 1300 [place] # (Auto) 1100 H Eos # (Auto) 200 Baso # (Auto) 0 RBC Morphology Not Reportable Poikilocytosis 1+ H Macrocytosis 2+ H PT 25.9 H INR 2.2 H Sodium Potassium Chloride Carbon Dioxide BUN Creatinine Estimated GFR BUN/Creatinine Ratio Glucose Calcium 08/20/18 05:03 WBC RBC Hgb Hct MCV MCH MCHC RDW Plt Count Neut % (Auto) Lymph % (Auto) [place] % (Auto) Eos % (Auto) Baso % (Auto) Neut # (Auto) Lymph # (Auto) [place] # (Auto) Eos # (Auto) Baso # (Auto) RBC Morphology Poikilocytosis Macrocytosis PT INR Sodium 139 Potassium 3.9 Chloride 106 Carbon Dioxide 28 BUN 29 H Creatinine 1.00 Estimated GFR > 60.0 BUN/Creatinine Ratio 29.0 H Glucose 100 Calcium 8.7 Assessment & Plan Assessment & Plan narrative: Guillermo Sun is an 83-year-old male with a past medical history significant for coronary artery disease status post stent x 2, chronic atrial fibrillation on warfarin, permanent pacemaker, and chronic hypoxemic respiratory failure due to COPD which is oxygen dependent on 3L baseline who was discharged to a SNF from [facility] 1 week ago after treatment for pneumonia and had a syncopal episode with LOC. 1. Acute orthostatic hypotension with secondary syncopal episode, present on admission. Active. -Patient slumped over and had LOC in wheelchair at SNF. -Initially thought to be from sole volume depletion but now appears possibly chronic and likely age related. -Continue compression stockings, midodrine and fludrocortisone as somewhat symptomatically effective. Will treat patient's symptoms rather than blood pressure measurements. -Encourage oral intake. -Continue orthostatic and BP measurements frequently. -Provided handout on exercises for orthostatic hypotension. 2. Iron deficiency anemia, chronic, present on admission. Stable. -Anemia was initially macrocytic but now normocytic possibly due to transfusion? -Patient reports he had a colonoscopy 4-5 years ago that was normal without polyps or any other abnormalities. Consider possible EGD in the future if patient able to go off of warfarin and Plavix. -Patient received 2 units PRBC. -Iron panel demonstrates iron deficiency. B12 level normal. -H&H stable. No overt signs of bleeding. -Recommend starting iron supplementation and vitamin-C outpatient. -Monitor CBC daily. 3. Recent pneumonia. Resolved. 4. Acute on chronic hypoxemic respiratory failure secondary to COPD, present on admission. Acute portion resolved. -Continue supplemental oxygen with goal oxygen saturation 88% or greater. Patient is on 3L continuous oxygen at baseline. -Continue DuoNeb. Holding Spiriva. 5. Chronic atrial fibrillation, present on admission. Stable. -Continue Plavix and Coumadin. INR therapeutic, continue to check daily. -He has moderate to severe mitral stenosis, probably unchanged, on his echocardiogram. 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 6. CAD status post stent x 2, chronic, present on admission. Stable. -Continue atorvastatin 40 mg daily at bedtime, Plavix 75 mg daily and warfarin. Plan: Continue albuterol, vitamin-C, atorvastatin, coenzyme Q10, latanoprost, Dulera, warfarin. Holding doxazosin, metoprolol and lisinopril. Goal: Improved orthostatic hypotension/syncope and then return to home or SNF rehab. Quality VTE Deep Vein Thrombosis/Pulmonary Embolism Present on Admission: No
[2018-08-20 07:02] LABS: Anisocytosis 3+; Ovalocytes 1+
[2018-08-20 07:03] LABS: Poikilocytosis 1+
[2018-08-20 07:44] LABS: Vitamin B12 836 pg/mL (239-931)
[2018-08-20] MEDS: CHOLECALCIFEROL (VITAMIN D3) 1,000 UNIT TABLET 1000 UNIT PO (08:25)
[2018-08-20] MEDS: CLOPIDOGREL 75 MG TABLET PO (08:25)
[2018-08-20] MEDS: FLUDROCORTISONE 0.1 MG TABLET PO (08:25)
[2018-08-20] MEDS: guaiFENesin ER 600 MG TAB PO ×2 (08:26→21:26)
[2018-08-20] MEDS: SODIUM CHLORIDE 0.9% FLUSH 10 ML IV ×2 (08:26→21:27)
--- NOTE | 2018-08-20 11:20 | OT.IP.TRT ---
Current Diagnoses Syncope and collapse (08/13/18) Occupational Therapy Treatment Note M2 OT-IP Current Condition Start: 08/14/18 17:49 Freq: Status: Active Protocol: Document 08/14/18 16:32 PJM (Rec: 08/14/18 18:07 PJM [id number]) Occupational Therapy Current Condition Current Condition Evaluation Date 08/14/18 Treatment Diagnosis decreased indep in self care, functional mobility due to hypotension Diagnosis Onset Date 08/13/18 Post Operative Precautions Other Precautions monitor BP, 3L O2 M3 OT- IP Subjective and Pain Start: 08/14/18 17:49 Freq: Status: Active Protocol: Document 08/20/18 11:06 [facility] (Rec: 08/20/18 11:20 [facility] [id number]) OT- Subjective Occupational Therapy Visit Type Type Treatment Note Visit Start Time 09:10 Visit Stop Time 09:30 Total Visit Minutes 20 Occupational Therapy Visit Comments Patient Comments Pt wanting to sponge off. Per Dr. Shrestha would like for pt to have thigh high stocking on for most of the day. OT Pain Assessment Pain When Pain Assessed At Rest Pain Present Pain Present Denied Pain M4 OT- IP ADL's Start: 08/14/18 17:49 Freq: Status: Active Protocol: Document 08/20/18 11:06 [facility] (Rec: 08/20/18 11:20 [facility] [id number]) OT ADL-Oral Care General Eval Oral Care Ability Standby Assistance Comments Oral Care Comments Pt able to wash face and hands after set-up of wash cloth. OT ADL-Dressing General Eval Lower Body Dressing Ability Contact Guard Assistance Comments OT Dressing Comments Pt able to raul socks while sitting at edge of bed however needing CGA for dynamic balance. Pt able to bend forwards to raul over feet and then having to cross his leg over to pull up socks the rest of the way. OT ADL-Bathing Bathing Type Bathing Type Sponge Bath General Evaluation Bathing Ability Minimal Assistance Areas Needing Assistance Wash/Dry Back Comments OT Bathing Comments Pt after set-up able to wash chest, arm, and underarms while sitting and assist for back. While standing pt able to wash perineal areas on his own and use of FWW for balance . BP dropped while standing to 79/63 hr 120 O2 on 1L 88%. M5 OT- IP IADL's Start: 08/14/18 17:49 Freq: Status: Active Protocol: Document 08/14/18 16:32 PJM (Rec: 08/14/18 18:07 PJM [id number]) OT-Instrumental Activities of Daily Living Deficits IADL Deficits Identified Deficits Home Safety Awareness Awareness of Need for Assistance at Home Good Awareness Medication Management Medication Management No Deficits Identified Money Management Money Management Caregiver Provides Assistance Meal Preparation Meal Preparation Caregiver Provides Assist Water Resource Consultant Water Resource Consultant Caregiver Provides Assist Driving Driving Caregiver Provides Assist M6 OT- IP Functional Cognition Start: 08/14/18 17:49 Freq: Status: Active Protocol: Document 08/20/18 11:06 [facility] (Rec: 08/20/18 11:20 [facility] [id number]) Cognitive Factors Limiting Selfcare Function Cognitive Ability Level of Alertness Alert Patient Orientation Name Place Situation Attention Span Ability Capable of Focused Attention Capable of Sustained Attention Ability to Follow Commands Able to Follow Multi-Step Commands Memory Description Immediate Intact Short Term Intact Manager Quantitative Intact Cognitive Comments Cognitive Assessment Comments Pt able to follow multiple commands for sponge bathing from edge of bed and standing today with PROGRAM HOST also present. M7 OT- IP Mobility and Balance Start: 08/14/18 17:49 Freq: Status: Active Protocol: Document 08/20/18 11:06 [facility] (Rec: 08/20/18 11:20 [facility] [id number]) OT- Bed Mobility Assessment Rolling Type of Rolling Roll to Left Level of Assistance Standby Assistance Head of Bed Elevated Bedrails Supine to Sit Supine to Sit Assist Standby Assistance OT-Transfer Assessment Sit to and From Stand Sit to and from Stand Contact Guard Assistance 1 Person Assistance Devices Transfer Assistive Devices Gait Belt Front Wheeled Walker Comments Mobility Comments BP HOB up at 58degrees 124/64 hr 100 O2 on 1L 94%, BP sitting 116/64 hr 120 O2 on 1L 88%. BP standing 79/63 hr 120 O2 on 1L 88%, sitting BP 138/ 72 hr 117 O2 on 1L 89%. Nursing notified and recommending to increase to 2L of o2. OT- Balance Assessment Sitting Balance and Reactions Static Sitting Balance Ability Normal Dynamic Sitting Balance Ability Good Standing Balance and Reactions Static Standing Balance Ability Fair M8 OT- IP Objective Assessments Start: 08/14/18 17:49 Freq: Status: Active Protocol: Document 08/14/18 16:32 PJM (Rec: 08/14/18 18:07 PJM [id number]) OT Gross Range of Motion Upper Extremity Range of Motion Assessment Within Functional Limits OT Strength Upper Extremity Strength Assessment Within Functional Limits OT- Coordination Assessment Comments Coordination Comments BUE WFL per pt OT-Muscle Tone Assessment Muscle Tone WNL Yes OT Sensation Assessment Comments Summary Comments WNL BUE per pt Edema Edema Absent M9 OT- IP Assessment and Plan Start: 08/14/18 17:49 Freq: Status: Active Protocol: Document 08/20/18 11:06 [facility] (Rec: 08/20/18 11:20 [facility] [email or web address]) OT Summary Assessment and Plan Potential Rehabilitation Potential Good Summary OT Impairments Strength Functional Mobility Grooming Dressing Toileting Bathing Toilet Transfers Shower Transfers Progress Towards Goals Slow Progress due to Medical Issues Slow Progress due to Activity Tolerance Assessment Summary Pt continues to drop during standing. Pt able to tolerate doing sponge bath today. Pt will continue to benefit from skilled rehab when medically stable. Goals Grooming Goal Standby Assistance Dressing Goal Standby Assistance Toileting Goal Standby Assistance Bathing Goal Minimal Assistance Toilet Transfer Goal Standby Assistance Shower Transfer Goal Contact Guard Assistance Patient/Caregiver Education Goal Demonstrate Energy Conservation and Pacing Days to Meet Goals 5 Frequency of Treatment Frequency Of Treatment Once a Day Treatment Plan OT Treatment Plan ADL Training Functional Mobility Patient/Family Education Discharge Planning Discharge Recommendations OT Discharge Recommendations SNF Rehab
--- NOTE | 2018-08-20 14:59 | PT.IPTN ---
Current Diagnoses Syncope and collapse (08/13/18) Physical Therapy Treatment Note M2 PT-IP Current Condition Start: 08/14/18 11:53 Freq: NEEDED Status: Active Protocol: Document 08/14/18 15:41 [facility] (Rec: 08/14/18 15:49 [facility] [id number]) Physical Therapy Current Condition Current Condition Evaluation Date 08/14/18 Treatment Diagnosis hypotension, weakness Precautions Other Precautions check BP Weight Bearing Status Weight Bearing Status Weight Bear as Tolerated M3 PT-IP Subjective Start: 08/14/18 11:53 Freq: NEEDED Status: Active Protocol: Document 08/20/18 09:10 LJ (Rec: 08/20/18 14:59 LJ [email or web address]) Subjective Physical Therapy Visit Type Type Treatment Note Visit Start Time 09:10 Visit Stop Time 09:30 Total Visit Minutes 20 Number of ADMITTANCE ATTENDANT Visits 2 Physical Therapy Visit Comments Patient Comments Co treat with OT. Pt requesting to get cleaned up with bed bath Therapy Pain Assessment Pain Present Pain Present Denied Pain M4 PT-IP Mobility and Gait Start: 08/14/18 11:53 Freq: NEEDED Status: Active Protocol: Document 08/20/18 09:10 LJ (Rec: 08/20/18 14:59 LJ [id number]) PT-Bed Mobility Assessment Supine to Sit Supine to Sit Standby Assistance Sit to Supine Sit to Supine Standby Assistance Scooting Scooting to Edge of Bed Standby Assistance Scooting Up and Down in Bed Standby Assistance PT-Transfer Assessment Sit to and From Stand Sit to and from Stand Contact Guard Assistance Equipment Transfer Assistive Device Gait Belt Front Wheeled Walker Transfers Transfer Destination Chair Transfer Ability Level of Assist Contact Guard Assistance 1 Person Assistance Comments Mobility Comments BP supine 124/64; Sit bedside 116/64 standing 77/63 Sit bedside 138/72 Transfer to chair 120/66 HR fluctuated from 101 supine to 120-114 sitting. O2 fluctuation on 1L from 94% supine to 91%-88% sitting and transfer. M5 PT-IP Objective Assessments Start: 08/14/18 11:53 Freq: NEEDED Status: Active Protocol: Document 08/14/18 15:41 [facility] (Rec: 08/14/18 15:49 [facility] [id number]) Orientation Orientation/Cognition Level of Alertness Alert Strength Lower Extremity Strength Assessment Bilaterally Impaired M6 PT-IP Treatment Start: 08/14/18 11:53 Freq: NEEDED Status: Active Protocol: Document 08/20/18 09:10 [facility] (Rec: 08/20/18 14:59 LJ [email or web address]) Physical Therapy Treatment Exercises Exercises Ankle Pumps Gluteal Sets Education Education Provided Safety Other Treatments Other Treatment Performed pursed lip breathing M7 PT-IP Assessment and Plan Start: 08/14/18 11:53 Freq: NEEDED Status: Active Protocol: Document 08/20/18 09:10 [facility] (Rec: 08/20/18 14:59 LJ [id number]) PT Summary Assessment and Plan Summary Impairments Strength Balance Bed Mobility Transfers Gait Activity Tolerance Progress Towards Goals Slow Progress due to Medical Issues Assessment Summary Pt gave himself sponge bath at bedside with OT. Good sitting balance. Able to don socks independently. BP decreases with activity as HR increases. Pt unable to tolerate activity due to these changes. Nursing increase O2 to 2L at end of treatment. Pt left seated in chair with HOUSEKEEPER. BP at 120/66. Goals Bed Mobility Goal Independent Transfer Goal Independent Gait Goal Standby Assistance Gait Distance 150 Other Goals up/down 9 steps with rail Days to Meet Goals 5 Frequency of Treatment Frequency Of Treatment Once a Day Treatment Plan Physical Therapy Treatment Plan Bed Mobility Training Transfer Training Gait Training Therapeutic Exercise Balance Retraining Discharge Planning Neuromuscular Re-ed Other Recommendations and Next Treatment Advance gait & standing Focus balance as tolerated Recommendations To Nursing Amount of Assist Needed 1 Person Assist Discharge Recommendations PT Discharge Recommendations SNF Rehab
--- NOTE | 2018-08-20 17:14 | SLP.IPNOTE ---
Clinical swallow evaluation completed. Signs of aspiration observed. MBS scheduled for tomorrow 08/21 @ 9:30am. Patient okay to continue regular diet, thin liquids until MBS.
--- NOTE | 2018-08-20 17:28 | ST.IPIE ---
Current Diagnoses Syncope and collapse (08/13/18) Past Medical History (Last Reviewed 08/13/18 @ 17:42 by Jana Ang MD) COPD (chronic obstructive pulmonary disease) (Acute Medical) Cardiac arrhythmia (Acute Medical) Coronary artery disease (Acute Medical) Pacemaker (Acute Medical) ST IP Initial Evaulation Report [employer] Clinical Swallow Evaluation Start: 08/20/18 17:15 Freq: Status: Active Protocol: Document 08/20/18 17:15 [facility] (Rec: 08/20/18 17:28 [facility] [id number]) Clinical Swallow Evaluation Session Time Total Visit Minutes 45 Visit Information Visit Number [address] Shrestha Reason for Referral Pneumonia Setting Assessment Location Acute Care Visit Type Note Type Initial Evaluation Next Note Type Next Note Type Treatment Note Patient Information Identification Type Name History Taken from physician note: Pt has past medical history significant for coronary artery disease status post stent x 2, chronic atrial fibrillation on warfarin, permanent pacemaker, and chronic hypoxemic respiratory failure due to COPD which is oxygen dependent on 3L baseline who was discharged to a SNF from [facility] 1 week ago after treatment for pneumonia and had a syncopal episode with loss of consciousness. Subjective Observations Patient was seen lying in bed in his room with his present. He was positioned on his left side due to sores on his back. He was surprised to hear of swallow evaluation orders and denied any difficulty, but his reported he had some difficulty swallowing a pill yesterday. Evaluation Liquids Trialed Ice Chips Solids Trialed Puree Mechanical Soft Regular Administration Type Self-Feeding Oral Impairment WNL Oral Phase Comments Patient's mouth was dry with a small amount of dry residue on the roof of his mouth upon observation prior to trials. Oral [facility] exam was within functional limits. He was able to self-feed without difficulty. No significant difficulty observed during feeding or mastication of trials. Mild oral residue observed following trial of cracker cleared with prompted liquid wash. Pharyngeal Impairment Mildly Impaired Pharyngeal Phase Comments Hyolaryngeal elevation was present on palpation. Voluntary throat clear and cough were strong. Soft palate elevated on phonation. During trials, patient coughed immediately following two cup sips of thin liquids. He did not display signs of aspiration during a variety of food texture trials - puree, mechanical soft or regular. Findings Rehabilitation Potential Good Impressions Suspect some degree of pharyngeal impairment given signs of aspiration during trials of thin liquids; however, this cannot be confirmed without instrumental assessment. Factors increasing his risk for aspiration include compromised posture due to position restrictions related to bed sores and his tendency to eat/drink quickly per . Given clinical presentation including recent pneumonia and coughing during liquid trials, recommend MBS for further assessment and to guide plan of care. Education was provided regarding MBS, aspiration and potential treatment options depending on results. Patient and his agreed it was a good idea to have the instrumental assessment completed while he is in the hospital. Diet Recommendations Liquids Order Thin Diet Order Regular Medication Recommendations As Tolerated Comments In carrier if needed Aspiration Precautions Recommended Precautions Upright at 90 Degrees Additional Precautions Slow rate Treatment Plan Appropriate for Therapy pending MBS Therapy Recommendations MBS tomorrow at 9:30 am. Dysphagia Goals To be determined following MBS .
[2018-08-20] MEDS: WARFARIN 1 MG TABLET PO (18:05)
[2018-08-20] MEDS: LATANOPROST 0.005% OPHTH 2.5 ML 1 DROPS EYE-LEFT (21:26)
[2018-08-20] MEDS: ATORVASTATIN 20 MG TABLET 40 MG PO (21:26)
[2018-08-21] VITALS (15 sets, daily range): BP systolic 107–147; BP diastolic 66–82; PULSE 90–120; RESP 16–26; TEMP 36.3–36.8; O2SAT 87–98
--- NOTE | 2018-08-21 | DI.RAD.S_ITS ---
PROCEDURE: FL BARIUM SWALLOW W SPEECH INDICATIONS: Possible Aspiration TECHNIQUE: Examination was conducted in conjunction with speech pathology per standard protocol. In the lateral projection, filming was performed of the patient swallowing. AP projection filming may also be performed with patient swallowing. COMPARISON: None. FINDINGS: Function: The oral preparatory phase appears normal, with proper containment. The subsequent oral propulsive phase, pharyngeal phase, and esophageal phase of swallowing also appear normal with all proffered substances. There was one episode of tracheal aspiration with thin liquid barium consistency, with neck flexion. There was residual vallecular pooling. Morphology: No cricopharyngeal bar is identified. No cervical esophageal webs. No Zenker's diverticulum. No strictures. IMPRESSION: Single episode of tracheal aspiration seen with intentional flexed position of the neck. Otherwise, no laryngeal penetration or tracheal aspiration identified with multiple barium consistencies. Large amount of residual vallecular pooling Dictated by: Danyel Montalvo M.D. on 08/21/2018 at 11:13 Approved by: Danyel Montalvo M.D. on 08/21/2018 at 11:15
--- NOTE | 2018-08-21 00:01 | PC.NURSE ---
Evening notes: Matias is Ox3, conversive. BP's better tonight, 120's/70's. 1L O2 sat 94-96%, continuous pulse ox monitoring in place. HR irregular/regular, Tele V-paced, rate 80's-105. Loud murmur. Refusing to wear GENEVA hose. Told me multiple times he would not were them tonight, saying lets do that in the morning. Rationale explained, still refused to wear GENEVA hose. IV is saline locked & flushes with no problems. Has voided twice & had BM. Assisted to reposition throughout shfit, able to shift weight [id number], now sleeping on his left side. Barrier creme to buttocks/sacrum. Remains oriented & calls for help appropriately. Bed alarm active for high fall risk.
[2018-08-21] MEDS: SODIUM CHLORIDE 0.9% FLUSH 10 ML IV ×3 (02:00→22:12)
[2018-08-21] MEDS: TIOTROPIUM BROMIDE 18 MCG INHALER INH (04:55)
[2018-08-21] MEDS: ALBUTEROL/IPRATROPIUM 3 ML AMPUL INH ×3 (04:55→18:05)
[2018-08-21] MEDS: FLUTICASONE/SALMETEROL 500/50 14 PUFF DISKUS INH ×2 (04:55→18:05)
[2018-08-21] MEDS: MIDODRINE HCL 5 MG TABLET 10 MG PO ×3 (05:41→19:02)
[2018-08-21 05:54] LABS: INR 2.1 (0.9-1.3); Prothrombin Time 25.2 SECONDS (10.1-12.7)
[2018-08-21 06:02] LABS: Basophils Absolute Auto 100 /uL (0-100); Basophils Percent Auto 0.6 % (0-2); Eosinophils Absolute Auto 200 /uL (0-450); Eosinophils Percent Auto 2.1 % (2-4); Hematocrit 34.7 % (41-53); Hemoglobin 11.4 g/dL (13.5-17.5); Lymphocytes Absolute Auto 1400 /uL (1100-4500); Lymphocytes Percent Auto 13.9 % (25-40); Mean Corpuscular HGB Conc 32.9 % (30-36); Mean Corpuscular Hemoglobin 32.9 PG (26-34); Mean Corpuscular Volume 99.9 fL (80-100); Monocytes Absolute Auto 900 /uL (0-900); Monocytes Percent Auto 9.2 % (3-14); Neutrophils Absolute Auto 7600 /uL (1500-7000); Neutrophils Percent Auto 74.2 % (50-75); Platelet Count 304 X10^3/uL (150-400); Red Blood Cell Count 3.48 X10^6/uL (4.5-5.9); Red Cell Distribution Width 24.1 % (11.6-14.8); White Blood Cell Count 10.2 X10^3/uL (4.5-11.0)
[2018-08-21 06:04] LABS: Add Manual Diff / Slide Review SLIDE REVIEW
[2018-08-21 06:10] LABS: Blood Urea Nitrogen 25 mg/dL (9-20); Calcium 8.8 mg/dL (8.4-10.2); Carbon Dioxide 27 mmol/L (22-32); Chloride 106 mmol/L (98-107); Estimated Glomerular Filt Rate > 60.0 mL/min (>60); Glucose 103 mg/dL (80-110); HEMOLYSIS < 15 (0-50); Sodium 138 mmol/L (137-145)
[2018-08-21 07:38] LABS: Anisocytosis 2+; Burr Cells 1+; Macrocytosis 1+; Ovalocytes 1+; Platelet Estimate Adequate on smear
[2018-08-21] MEDS: FLUDROCORTISONE 0.1 MG TABLET PO (08:23)
[2018-08-21] MEDS: guaiFENesin ER 600 MG TAB PO ×2 (08:23→22:11)
[2018-08-21] MEDS: CLOPIDOGREL 75 MG TABLET PO (08:23)
[2018-08-21] MEDS: CHOLECALCIFEROL (VITAMIN D3) 1,000 UNIT TABLET 1000 UNIT PO (08:23)
--- NOTE | 2018-08-21 10:55 | PT.IPTN ---
Current Diagnoses Syncope and collapse (08/13/18) Physical Therapy Treatment Note M2 PT-IP Current Condition Start: 08/14/18 11:53 Freq: NEEDED Status: Active Protocol: Document 08/14/18 15:41 [facility] (Rec: 08/14/18 15:49 [facility] [id number]) Physical Therapy Current Condition Current Condition Evaluation Date 08/14/18 Treatment Diagnosis hypotension, weakness Precautions Other Precautions check BP Weight Bearing Status Weight Bearing Status Weight Bear as Tolerated M3 PT-IP Subjective Start: 08/14/18 11:53 Freq: NEEDED Status: Active Protocol: Document 08/21/18 10:55 [facility] (Rec: 08/21/18 12:33 [facility] [id number]) Subjective Physical Therapy Visit Type Type Treatment Note Visit Start Time 10:55 Visit Stop Time 11:26 Total Visit Minutes 31 Number of ELECTRICAL DESIGN TECHNICIAN Visits 0 Physical Therapy Visit Comments Patient Comments pt agreeable to do PT Therapy Pain Assessment Pain Present Pain Present Denied Pain M4 PT-IP Mobility and Gait Start: 08/14/18 11:53 Freq: NEEDED Status: Active Protocol: Document 08/21/18 10:55 [facility] (Rec: 08/21/18 12:33 [facility] [id number]) PT-Bed Mobility Assessment Supine to Sit Supine to Sit Standby Assistance Head of Bed Elevated PT-Transfer Assessment Sit to and From Stand Sit to and from Stand Contact Guard Assistance 1 Person Assistance Use of Upper Extremities Equipment Transfer Assistive Device Gait Belt Front Wheeled Walker Orthotic/Prosthetic Devices or Brace: No Transfers Transfer Destination Chair Transfer Technique Stand Step Pivot Transfer Ability Level of Assist Contact Guard Assistance 1 Person Assistance Use of Upper Extremities Comments Mobility Comments vitals monitored. BP in supine prior to mobilization: 127/70 MO 90 O2 sat 92%. pt compleed supine to sit SBA and was able to sit on EOB SBA. BP 113/73 MO 122 O2 sat 92%. pt completed sit to stand CGA and was able to maintain standing using FWW for suppor CGA. BP: 111/67 MO 107 O2 sat 93%. after ~ 2 min of standing: BP: 121/62 MO 120 O2 sat 91%. pt transferred to the chair using FWW CGA. BP after transfers: 135/70 MO 101 O2 sat 89%. cued to take deep breaths. O2 sat increased to ~ 91%. pt rested . agreed to ambulate. BP before ambulation: 116/75 MO 103 O2 sat 93%. pt ambulated ~30 ft using FWW CGA to min A and cues for safety. BP after ambulation: 104/72 MO 113 O2 sat decrease to 88-89%. pt cued for deep breathing. pt rested again but agreed to do another walk. prior to 2nd ambulation: BP: 110/72 MO 97 O2 sat 92% . pt ambulated using FWW CGA 25 ft. after ambulation sitting on chair: BP: 135/63 MO 106 O2 sat 88-90 %. pt agreed to sit up on chair. call light and table placed within reach. Gait Assessment Gait Gait Assistance Required: Contact Guard Assist Distance (Feet) 30 Able to Maintain Weight Bearing Status Yes During Gait Assistive Devices Assistive Device Gait Belt Front Wheeled Walker Orthotic/Prosthetic Devices or Brace: No Gait Deviations General Gait Pattern Decreased Stride Length Decreased Feet Clearance Narrow Based Gait Factors Limiting Gait Function Factors Limiting Gait Function Decreased Activity Tolerance Decreased Strength Poor Balance Poor Safety Awareness Comments Gait Comments pls refer to mobility section for details M5 PT-IP Objective Assessments Start: 08/14/18 11:53 Freq: NEEDED Status: Active Protocol: Document 08/14/18 15:41 [facility] (Rec: 08/14/18 15:49 [facility] [id number]) Orientation Orientation/Cognition Level of Alertness Alert Strength Lower Extremity Strength Assessment Bilaterally Impaired M6 PT-IP Treatment Start: 08/14/18 11:53 Freq: NEEDED Status: Active Protocol: Document 08/21/18 10:55 [facility] (Rec: 08/21/18 12:33 AB [id number]) Physical Therapy Treatment Education Education Provided Safety M7 PT-IP Assessment and Plan Start: 08/14/18 11:53 Freq: NEEDED Status: Active Protocol: Document 08/21/18 10:55 [facility] (Rec: 08/21/18 12:33 [facility] [id number]) PT Summary Assessment and Plan Potential Rehabilitation Potential Fair Summary Impairments Pain ROM Strength Balance Coordination Sensation Tone Cognition Bed Mobility Transfers Gait Activity Tolerance Progress Towards Goals Slow Progress due to Medical Issues Assessment Summary pt improving slowly but BP continues to decrease with upright activity but better than previous days. will continue to assess. Goals Bed Mobility Goal Independent Transfer Goal Independent Gait Goal Standby Assistance Gait Distance 150 Other Goals up/down 9 steps with rail Days to Meet Goals 5 Frequency of Treatment Frequency Of Treatment Once a Day Treatment Plan Physical Therapy Treatment Plan Bed Mobility Training Transfer Training Gait Training Therapeutic Exercise Balance Retraining Discharge Planning Neuromuscular Re-ed Other Recommendations and Next Treatment ambulation Focus Recommendations To Nursing Amount of Assist Needed 1 Person Assist Discharge Recommendations PT Discharge Recommendations SNF Rehab
--- NOTE | 2018-08-21 12:22 | ST.SWALLOW ---
Care Team Visit Care Team Role Provider Type Lino Dempsey MD Primary Care Provider Non-Staff Specialty: Medical Address: [address] [place] [address], [place], [address] Email: Vianey Holley DO Emergency Provider Physician Specialty: Emergency Medicine Address: [address] [place] [address], [id number] Email: Jana Ang MD Admit Provider Physician Attending Provider Specialty: Internal Medicine Address: [address] [place] [address], [id number] Email: [email or web address] Modified Barium Swallow Study LABELER Modified Barium Swallow Study Start: 08/21/18 09:57 Freq: Status: Active Protocol: Document 08/21/18 09:57 [facility] (Rec: 08/21/18 10:28 IAN [id number]) Modified Barium Swallow Study Total Time Visit Start Time 09:30 Visit Stop Time 10:00 Total Visit Minutes [address] Shrestha Reason for Referral Assess aspiration risk Setting Setting Acute Care Patient Information Identification Type Name ID Card Patient History 83-yr-old male who was recently hospitalized at [facility] for pneumonia, discharged to SNF. At SNF, pt had syncopal episode with LOC and transported to [facility] . Pt has COPD and suspected of possible dysphagia. During clinical bedside swallow evalution by Speech Pathology yesterday, the pt exhibited coughing with thin liquids. Given hx of pneumonia, MBSS was recommended to evaluate aspiration risk and guide POC. Subjective Observations The pt was transported to Radiology in MBS chair with 2L O2 via nasal cannula. The pt denied swallow difficulties. The clinician explained the MBS procedure and rationale. The pt verbalized understanding and agreement. Patient Positioning Position View Lateral Imaging Lateral View Textures Administered Trials Presented Thin Liquid via Spoon Thin Liquid via Cup [place] Liquid via Spoon [place] Liquid via Cup [place] Liquid via Spoon Dysphagia Blenderized Textures Regular Textures Oral Phase Source: MBSIMP (TM) (C) Bolus Specific Scoring Grid Lip Closure No Impairment (WNL) Tongue Control During Bolus Hold No Impairment (WNL) Bolus Prep/Mastication WFL Bolus Transport/Lingual Motion WFL A/P Lingual Propulsion Delay No Oral Residue Mild Impairment Residue Clearing Minimal Impairment Nasal Regurgitation No Additional Oral Phase Observations Mild lingual weakness consistent with age resulting in minimally reduced lingual- alveolar contact and minimal to mild oral residue which clears with subsequent swallow . Pt self manages effectively. Pharyngeal Phase Source: MBSIMP (TM) (C) Bolus Specific Scoring Grid Delayed Initiation of Pharyngeal Swallow Yes Number of Seconds Delayed (seconds) 2-3 sec Soft Palate Elevation No Impairment (WNL) Tongue Base Strength/Range of Motion Mild Impairment Residue Along the Tongue Base Yes Clearance of Residue Along Tongue Base Minimal Impairment Laryngeal Elevation WFL Anterior Hyoid Movement Moderate Impairment Epiglottic Range of Motion WFL Vallecular Residue Yes: Moderate, consistent w/ all trials Clearance of Vallecular Residue Moderate Impairment Laryngeal Vestibular Closure Mild Impairment Pharyngeal Stripping Wave Minimal Impairment Posterior Pharyngeal Wall Residue No Clearance of Posterior Pharyngeal Wall No Impairment (WNL) Residue Upper Esophageal Sphincter Opening WFL Residue in the Pyriform Sinuses Yes Clearance of Residue in the Pyriform WFL Sinuses Pharyngoesophageal Backflow Observed No Additional Pharyngeal Phase Observations Early spillage to level of vallecula with all trials with exception of consecutive sips of thin liquid, which spilled to pyriform sinuses prior to swallow onset. Consistent moderate vallecular pooling/ residue with all trials. Occasional spillage of residue to pyriform sinuses. Dry swallows improve but do not fully clear vallecular residue . Mildly reduced base of tongue strength results in trace contrast between base of tongue and posterior pharyngeal wall. Hyolaryngeal elevation is WFL; however, minimal anterior excursion of hyoid was observed. Although epiglottic inversion is complete, the epiglottis is largely rounded/hooked. All of these factors likely contribute to vallecular pooling and residue. Assessed potential use of chin tuck with single sip of thin liquid to reduce vallecular residue. The pt exhibited isabel aspiration with immediate strong cough response. Therefore, chin tuck is not recommended; pt is advised to maintain 90 degree upright body position with neutral chin position with oral intake. A/P View Clinical Impressions Dysphagia Type Mild-Moderate Pharyngeal Dysphagia. Findings Dysphagia is secondary to age and reduced strength and/or ROM of lingual, posterior pharyngeal, and suprahyoid muscles, resulting in consistent moderate pharyngeal residue and occasionally reduced closure of laryngeal vestibule. The pt is at low to moderate risk of aspiration particularly with pharyngeal residue. He benefits somewhat from double swallow and requires upright body position and neutral chin position during oral intake. Isabel aspiration and strong cough response was observed with chin tuck, which is therefore not recommended as a compensatory strategy. The pt would likely benefit from dysphagia therapy targeting strengthening of musculature to reduce pharyngeal residue and associated risk of aspiration. Rehabilitation Potential Good Patient Appropriate for Therapy Yes Recommendations Diet Liquids Order Thin Diet Order Regular Medication Recommendation As Tolerated Additional Dietary Needs Reminders to Use Strategies Aspiration Precautions Recommended Precautions Upright at 90 Degrees Small Bites/Sips Effortful Swallow Double Swallow Treatment Plan Therapy Recommendations Inpatient Speech Therapy Outpatient Speech Therapy Oral Motor Exercises Lingual Exercises Base of Tongue Exercises Compensatory Strategies Recommendations Sitting Upright (90 deg) Double Swallow Small Bites and Sips Short Term Goals The pt will perform exercises to increase strength, coordination, and ROM of swallow musculature with min- mod cues to increase pharyngeal clearance and reduce risk of aspiration. The pt will follow safe swallow strategies (upright/ neutral position, double swallow, small bites/sips) with written cues to reduce risk of aspiration. Chcf Goals The pt will tolerate regular diet and thin liquids without s/sx of aspiration. The pt will perform swallow exercises and compensatory strategies independently to improve swallow function/ safety. Placement Recommendation After Discharge Home Outpatient Therapy Additional Recommendations/Comments Dysphagia therapy if pt discharges to SNF
--- NOTE | 2018-08-21 13:35 | OT.IP.TRT ---
Current Diagnoses Syncope and collapse (08/13/18) Occupational Therapy Treatment Note M2 OT-IP Current Condition Start: 08/14/18 17:49 Freq: Status: Active Protocol: Document 08/14/18 16:32 [facility] (Rec: 08/14/18 18:07 [facility] [id number]) Occupational Therapy Current Condition Current Condition Evaluation Date 08/14/18 Treatment Diagnosis decreased indep in self care, functional mobility due to hypotension Diagnosis Onset Date 08/13/18 Post Operative Precautions Other Precautions monitor BP, 3L O2 M3 OT- IP Subjective and Pain Start: 08/14/18 17:49 Freq: Status: Active Protocol: Document 08/21/18 13:22 [facility] (Rec: 08/21/18 13:34 [facility] [id number]) OT- Subjective Occupational Therapy Visit Type Type Treatment Note Visit Start Time 12:35 Visit Stop Time 12:58 Total Visit Minutes 23 Occupational Therapy Visit Comments Patient Comments Pt wanting to get back to bed but agreeable to get up and do grooming. OT Pain Assessment Pain When Pain Assessed At Rest Pain Present Pain Present Denied Pain M4 OT- IP ADL's Start: 08/14/18 17:49 Freq: Status: Active Protocol: Document 08/21/18 13:22 [facility] (Rec: 08/21/18 13:34 [facility] [id number]) OT ADL-Grooming General Evaluation Grooming Ability Independent Comments OT Grooming Comments SBA to assist with O2 tubing and monitor for O2 while pt able to stand with FWW and do grooming needs. OT ADL-Oral Care General Eval Oral Care Ability Independent OT ADL-Toileting General Evaluation Toileting Ability Standby Assistance Comments OT Toileting Comments Set-up assist for wipes and toilet paper, pt needing rest breaks while trying to wipe.Pt having to wipe 8 times for completeness. OT ADL-Bathing Comments OT Bathing Comments Pt states too tired to attempted today but maybe open to shower if feeling better or just try sponge bathing. M5 OT- IP IADL's Start: 08/14/18 17:49 Freq: Status: Active Protocol: Document 08/14/18 16:32 [facility] (Rec: 08/14/18 18:07 [facility] [id number]) OT-Instrumental Activities of Daily Living Deficits IADL Deficits Identified Deficits Home Safety Awareness Awareness of Need for Assistance at Home Good Awareness Medication Management Medication Management No Deficits Identified Money Management Money Management Caregiver Provides Assistance Meal Preparation Meal Preparation Caregiver Provides Assist Veterinary Virus Serum Inspector Veterinary Virus Serum Inspector Caregiver Provides Assist Driving Driving Caregiver Provides Assist M6 OT- IP Functional Cognition Start: 08/14/18 17:49 Freq: Status: Active Protocol: Document 08/21/18 13:22 [facility] (Rec: 08/21/18 13:34 [facility] [id number]) Cognitive Factors Limiting Selfcare Function Cognitive Ability Level of Alertness Alert Patient Orientation Name Place Situation Attention Span Ability Capable of Focused Attention Capable of Sustained Attention Ability to Follow Commands Able to Follow Multi-Step Commands Memory Description Immediate Intact Short Term Intact Bed Teacher Intact Safety Awareness Underestimates Need for Assistance Cognitive Comments Cognitive Assessment Comments Occasional vc to take rest breaks. M7 OT- IP Mobility and Balance Start: 08/14/18 17:49 Freq: Status: Active Protocol: Document 08/21/18 13:22 [facility] (Rec: 08/21/18 13:34 [facility] [id number]) OT-Transfer Assessment Sit to and From Stand Sit to and from Stand Standby Assistance 1 Person Assistance Devices Transfer Assistive Devices Gait Belt Front Wheeled Walker Comments Mobility Comments SBA mainly for line management needs. HOB up 120/61 hr 103 O2 on 2l 92%; sitting on BSC 126/75 hr 120 , o2 2L 92%; after coming back to bed 117/ 76 hr 120 O2 on 2L 89%. OT- Balance Assessment Sitting Balance and Reactions Static Sitting Balance Ability Normal Dynamic Sitting Balance Ability Normal Standing Balance and Reactions Static Standing Balance Ability Good M8 OT- IP Objective Assessments Start: 08/14/18 17:49 Freq: Status: Active Protocol: Document 08/14/18 16:32 [facility] (Rec: 08/14/18 18:07 [facility] [id number]) OT Gross Range of Motion Upper Extremity Range of Motion Assessment Within Functional Limits OT Strength Upper Extremity Strength Assessment Within Functional Limits OT- Coordination Assessment Comments Coordination Comments BUE WFL per pt OT-Muscle Tone Assessment Muscle Tone WNL Yes OT Sensation Assessment Comments Summary Comments WNL BUE per pt Edema Edema Absent M9 OT- IP Assessment and Plan Start: 08/14/18 17:49 Freq: Status: Active Protocol: Document 08/20/18 11:06 [facility] (Rec: 08/20/18 11:20 [facility] [id number]) OT Summary Assessment and Plan Potential Rehabilitation Potential Good Summary OT Impairments Strength Functional Mobility Grooming Dressing Toileting Bathing Toilet Transfers Shower Transfers Progress Towards Goals Slow Progress due to Medical Issues Slow Progress due to Activity Tolerance Assessment Summary Pt continues to drop during standing. Pt able to tolerate doing sponge bath today. Pt will continue to benefit from skilled rehab when medically stable. Goals Grooming Goal Standby Assistance Dressing Goal Standby Assistance Toileting Goal Standby Assistance Bathing Goal Minimal Assistance Toilet Transfer Goal Standby Assistance Shower Transfer Goal Contact Guard Assistance Patient/Caregiver Education Goal Demonstrate Energy Conservation and Pacing Days to Meet Goals 5 Frequency of Treatment Frequency Of Treatment Once a Day Treatment Plan OT Treatment Plan ADL Training Functional Mobility Patient/Family Education Discharge Planning Discharge Recommendations OT Discharge Recommendations SNF Rehab
[2018-08-21] MEDS: WARFARIN 1 MG TABLET PO (17:05)
--- NOTE | 2018-08-21 18:23 | PC.NURSE ---
Evening note: Patient awake, Ox3. Agreed to transfer to recliner for dinner, reports has appetite tonight. VS stable. 2L O2 sat 94% on continuous pulse ox monitoring. Reports SOB with rest & activity, respirations 20/min. HR reg/irreg, tele monitoring continues. Abdomen binder ordered, material sent up a size small which is much too small. I notified QUILL MACHINE OPERATOR we need a larger size, she told me [employer] told her that is the only one we have. I notified Dr Shrestha of this, I then called [employer] leaving a message that the Dr has ordered the patient to wear binder and that his torso is 36 around.
--- NOTE | 2018-08-21 18:27 | PC.NURSE ---
Evening note: Bill is awake & Ox3 tonight, VS stable. 2L O2 sat 93-94% per continuous pulse ox monitoring. Reports SOB with rest & exertion, respirations 20/minute upon transfer to recliner. Pt aware that Dr wants him to walk tonight, he agreed to transfer to recliner before meal arrived but said I will want to get back to bed after I eat. Sitting on waffle cushion to prevent further skin breakdown. Pt aware to offload pressure areas. Tonight he is agreeable to wear bilateral knee high GENEVA hose. CMS intact. Denies dizziness upon transfer to recliner. Pt & aware a binder is ordered, small binder supplied by [facility] & brought in room, binder much too small and barely fit around 1/2 of his torso. I notified EXTRACTING MACHINE OPERATOR we need larger binder, she said [facility] had notified her the small was the only one we had. I left message for [employer] requesting they send correct size binder in the morning. I notified Dr Shrestha we are unable to place binder tonight.
--- NOTE | 2018-08-21 18:29 | PM.PN.1 ---
Subjective Date Patient Seen: 08/21/18 Interval history: Guillermo Sun is an 83-year-old male with a past medical history significant for coronary artery disease status post stent x 2, chronic atrial fibrillation on warfarin, permanent pacemaker, and chronic hypoxemic respiratory failure due to COPD which is oxygen dependent on 3L baseline who was discharged to a SNF from [facility] 1 week ago after treatment for pneumonia and had a syncopal episode with LOC. The patient is resting in bed comfortably. He has been asymptomatic of orthostasis today. His orthostatic blood pressure measurements have improved significantly with lowest reading standing SBP mid 100s. He does become short of breath with ambulation likely due to resolving pneumonia and that has been adequately treated with antibiotics at [facility]. He currently denies headache, lightheadedness or dizziness, near-syncope, chest pain, abdominal pain, nausea, vomiting, fever, chills, dysuria, diarrhea or constipation. He endorses chronic cough and shortness of breath and he is on his baseline oxygen requirements of 3 L. He is voiding and eliminating without difficulty. He is up ambulating with assistance. He does not use assist device for ambulation at home. Exam Vital Signs (past 8 hours): - 08/21/18 10:36 08/21/18 12:00 08/21/18 14:30 Temperature 97.4 F L Pulse Rate 96 H 95 H Pulse Rate [Orthostatic Lying] 107 H Pulse Rate [Orthostatic Sitting] 120 H Pulse Rate [Orthostatic Standing] 118 H Respiratory Rate 22 20 Blood Pressure 135/66 Blood Pressure [Orthostatic Lying] 147/82 H Blood Pressure [Orthostatic Sitting] 131/74 Blood Pressure [Orthostatic Standing] 107/74 Pulse Oximetry 98 97 08/21/18 15:30 08/21/18 17:18 08/21/18 18:05 Temperature 98.2 F Pulse Rate 90 100 H Pulse Rate [Orthostatic Lying] Pulse Rate [Orthostatic Sitting] Pulse Rate [Orthostatic Standing] Respiratory Rate 18 20 Blood Pressure 115/82 Blood Pressure [Orthostatic Lying] Blood Pressure [Orthostatic Sitting] Blood Pressure [Orthostatic Standing] Pulse Oximetry 95 94 96 Fraction of Inspired Oxygen 28 Oxygen Delivery Method Nasal Cannula Oxygen Flow Rate 2 Narrative Exam Narrative: General: Elderly gentleman sitting in bed and in no acute distress, well-developed, well-nourished, appropriately interactive. HEENT: Normocephalic, atraumatic. External ears without defect. Pupils equal, round, and reactive to light. Anicteric sclerae, moist conjunctivae, and no lid lag. Neck: Supple with full range of motion. No lymphadenopathy or thyromegaly. Cardiovascular: Regular rate and rhythm without murmurs, rubs, or gallops appreciated. Pulmonary: Clear to auscultation bilaterally without crackles, wheezes, or rhonchi. Normal respiratory effort with no use of accessory muscles. Abdomen: Soft, bowel sounds present, nontender, nondistended. No hepatosplenomegaly or masses appreciated. Extremities: No clubbing, cyanosis, or edema. Skin: Normal temperature, turgor, and texture; no rash, ulcers, or subcutaneous nodules appreciated. Several scars on face bilaterally. Neurological: Cranial nerves grossly intact. Psychiatric: Normal mood and affect. Alert and oriented to person, place, and time. Objective Labs Result Diagrams: 08/21/18 05:11 08/21/18 05:11 Labs: Laboratory Results - last 24 hr 08/21/18 08/21/18 08/21/18 05:11 05:11 05:11 WBC 10.2 RBC 3.48 L Hgb 11.4 L Hct 34.7 L MCV 99.9 MCH 32.9 MCHC 32.9 RDW 24.1 H Plt Count 304 Neut % (Auto) 74.2 Lymph % (Auto) 13.9 L Moca % (Auto) 9.2 Eos % (Auto) 2.1 Baso % (Auto) 0.6 Neut # (Auto) 7600 H Lymph # (Auto) 1400 Moca # (Auto) 900 Eos # (Auto) 200 Baso # (Auto) 100 Platelet Estimate Adequate on smear RBC Morphology See below Anisocytosis 2+ H Macrocytosis 1+ H Ovalocytes 1+ H Erasto Cells 1+ H PT 25.2 H INR 2.1 H Sodium 138 Potassium 4.0 Chloride 106 Carbon Dioxide 27 BUN 25 H Creatinine 1.00 Estimated GFR > 60.0 BUN/Creatinine Ratio 25.0 H Glucose 103 Calcium 8.8 Assessment & Plan Assessment & Plan narrative: Guillermo Sun is an 83-year-old male with a past medical history significant for coronary artery disease status post stent x 2, chronic atrial fibrillation on warfarin, permanent pacemaker, and chronic hypoxemic respiratory failure due to COPD which is oxygen dependent on 3L baseline who was discharged to a SNF from [facility] 1 week ago after treatment for pneumonia and had a syncopal episode with LOC. 1. Acute orthostatic hypotension with secondary syncopal episode, present on admission. Active. -Patient slumped over and had LOC in wheelchair at SNF. -Initially thought to be from sole volume depletion but now appears possibly chronic and likely age related. -Continue compression stockings, midodrine and fludrocortisone which have been symptomatically effective. Added exercises and abdominal binder today. Will treat patient's symptoms rather than blood pressure measurements. -Encourage fluid intake. -Continue orthostatic and BP measurements frequently. 2. Iron deficiency anemia, chronic, present on admission. Stable. -Anemia was initially macrocytic but now normocytic possibly due to transfusion? -Patient reports he had a colonoscopy 4-5 years ago that was normal without polyps or any other abnormalities. Consider possible EGD in the future if patient able to go off of warfarin and Plavix. -Patient received 2 units PRBC. -Iron panel demonstrates iron deficiency. B12 level normal. -H&H stable. No overt signs of bleeding. -Continue vitamin-C and recommend consideration of Hematology evaluation outpatient for IV iron infusion as patient has not tolerated oral iron supplementation previously. -Monitor CBC daily. 3. Recent pneumonia. Resolved. 4. Acute on chronic hypoxemic respiratory failure secondary to COPD, present on admission. Acute portion resolved. -Continue supplemental oxygen with goal oxygen saturation 88% or greater. Patient is on 3L continuous oxygen at baseline. -Continue DuoNeb. Holding Spiriva. 5. Chronic atrial fibrillation, present on admission. Stable. -Continue Plavix and Coumadin. INR therapeutic, continue to check daily. -He has moderate to severe mitral stenosis, probably unchanged, on his echocardiogram. 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 Plan to discuss mitral valve replacement outpatient with Dr. Lopez and teacher [facility] at . He has been extensively worked up at [facility] in [place]. 6. CAD status post stent x 2, chronic, present on admission. Stable. -Continue atorvastatin 40 mg daily at bedtime, Plavix 75 mg daily and warfarin. 7. Underweight, chronic, present on admission. Active. -Patient has history of suspicious right lung nodule but has not had biopsy as he has several comorbid conditions which have taken precedent. He has had 30 lbs weight loss over last 6 months. -Continue high-calorie diet with supplementation with each meal. -May need a nutritional consult here vs outpatient. Plan: Continue albuterol, vitamin-C, atorvastatin, coenzyme Q10, latanoprost, Dulera, warfarin. Holding doxazosin, metoprolol and lisinopril. Disposition: Likely to discharge to intermediate facility once orthostatic hypotension/syncope improved and asymptomatic. Quality VTE Deep Vein Thrombosis/Pulmonary Embolism Present on Admission: No
[2018-08-21] MEDS: ATORVASTATIN 20 MG TABLET 40 MG PO (22:11)
[2018-08-21] MEDS: LATANOPROST 0.005% OPHTH 2.5 ML 1 DROPS EYE-LEFT (22:11)
[2018-08-22] VITALS (7 sets, daily range): BP systolic 129–143; BP diastolic 74–80; PULSE 97–105; RESP 17–20; TEMP 36.3–36.4; O2SAT 92–95
[2018-08-22] MEDS: ALBUTEROL/IPRATROPIUM 3 ML AMPUL INH (05:22)
[2018-08-22] MEDS: FLUTICASONE/SALMETEROL 500/50 14 PUFF DISKUS INH (05:22)
[2018-08-22] MEDS: TIOTROPIUM BROMIDE 18 MCG INHALER INH (05:22)
[2018-08-22] MEDS: MIDODRINE HCL 5 MG TABLET 10 MG PO ×2 (05:31→14:39)
[2018-08-22 05:44] LABS: INR 2.3 (0.9-1.3); Prothrombin Time 26.9 SECONDS (10.1-12.7)
[2018-08-22 05:46] LABS: Basophils Absolute Auto 100 /uL (0-100); Basophils Percent Auto 0.5 % (0-2); Eosinophils Absolute Auto 200 /uL (0-450); Eosinophils Percent Auto 2.1 % (2-4); Hematocrit 34.4 % (41-53); Hemoglobin 11.3 g/dL (13.5-17.5); Lymphocytes Absolute Auto 1200 /uL (1100-4500); Lymphocytes Percent Auto 12.4 % (25-40); Mean Corpuscular HGB Conc 32.8 % (30-36); Mean Corpuscular Hemoglobin 32.6 PG (26-34); Mean Corpuscular Volume 99.3 fL (80-100); Monocytes Absolute Auto 1000 /uL (0-900); Monocytes Percent Auto 10.5 % (3-14); Neutrophils Absolute Auto 7400 /uL (1500-7000); Neutrophils Percent Auto 74.5 % (50-75); Platelet Count 310 X10^3/uL (150-400); Red Blood Cell Count 3.47 X10^6/uL (4.5-5.9); Red Cell Distribution Width 24.4 % (11.6-14.8); White Blood Cell Count 9.9 X10^3/uL (4.5-11.0)
[2018-08-22 05:51] LABS: BUN Creatinine Ratio 17.5 (6-22); Blood Urea Nitrogen 21 mg/dL (9-20); Calcium 8.9 mg/dL (8.4-10.2); Carbon Dioxide 29 mmol/L (22-32); Chloride 104 mmol/L (98-107); Glucose 104 mg/dL (80-110); HEMOLYSIS < 15 (0-50); Magnesium 1.7 mg/dL (1.6-2.3); Potassium 4.3 mmol/L (3.4-5.1); Sodium 138 mmol/L (137-145)
[2018-08-22 05:53] LABS: Add Manual Diff / Slide Review SLIDE REVIEW
[2018-08-22 08:23] LABS: Anisocytosis 2+; Ovalocytes 1+
[2018-08-22] MEDS: CLOPIDOGREL 75 MG TABLET PO (08:51)
[2018-08-22] MEDS: SODIUM CHLORIDE 0.9% FLUSH 10 ML IV (08:52)
[2018-08-22] MEDS: CHOLECALCIFEROL (VITAMIN D3) 1,000 UNIT TABLET 1000 UNIT PO (08:52)
[2018-08-22] MEDS: FLUDROCORTISONE 0.1 MG TABLET PO (08:52)
[2018-08-22] MEDS: guaiFENesin ER 600 MG TAB PO (08:52)
[2018-08-22] MEDS: ASCORBIC ACID 500 MG TABLET PO (08:52)
--- NOTE | 2018-08-22 09:26 | P.DS_ITS ---
History of Present Illness Chief complaint: Hypotension Discharge Providers Date of admission: 08/13/18 15:00 Primary care physician: Lino Dempsey MD Consults: 08/13/18 17:28 Consult to Occupational Therapy Evaluate & Treat Comment: Physician Instructions: Evaluate and treat Consult to Physical Therapy Evaluate & Treat Comment: Physician Instructions: Evaluate and Treat 08/18/18 16:17 Consult to Speech Therapy Evaluate & Treat Comment: cough w/ thin liquids & med. weak cough, hx of PNA Physician Instructions: Evaluate and treat Discharge provider: Regi Yue Shrestha DO Discharge Date: 08/22/18 Summary Discharge Diagnosis: 1. Acute orthostatic hypotension with secondary syncopal episode, present on admission. Improved and controlled. 2. Iron deficiency anemia, chronic, present on admission. Stable. 3. Recent pneumonia. Resolved. 4. Acute on chronic hypoxemic respiratory failure secondary to COPD, present on admission. Acute portion resolved. 5. Chronic atrial fibrillation, present on admission. Stable. 6. CAD status post stent x 2 with valvular heart disease s/p TAVR, chronic, present on admission. Stable. 7. Underweight, chronic, present on admission. Active. 8. BPH, chronic, present on admission. Stable. Hospital Course: Guillermo Sun is an 83-year-old male with a past medical history significant for coronary artery disease status post stent x 2, chronic atrial fibrillation on warfarin, permanent pacemaker, and chronic hypoxemic respiratory failure due to COPD which is oxygen dependent on 3L baseline who was discharged to a SNF from [facility] 1 week ago after treatment for pneumonia and had a syncopal episode with LOC. 1. Acute orthostatic hypotension with secondary syncopal episode, present on admission. Improved and controlled. -Patient slumped over and had LOC in wheelchair at SNF. -Initially thought to be from sole volume depletion but now appears possibly chronic and likely age related and vavluar in etiology. -Continued compression stockings, midodrine 10 mg 3 times daily and fludrocortisone 0.1 mg daily which have been symptomatically effective. Added exercises and abdominal binder today. Treated patient's symptoms rather than blood pressure measurements. -Discontinued doxazosin, metoprolol and lisinopril. -Encouraged fluid intake. -Continued orthostatic and BP daily during each shift. 2. Iron deficiency anemia, chronic, present on admission. Stable. -Anemia was initially macrocytic but now normocytic possibly due to transfusion? -Patient reports he had a colonoscopy 4-5 years ago that was normal without polyps or any other abnormalities. Consider possible EGD in the future if patient is able to go off of warfarin and Plavix. -Patient received 2 units PRBC. -Iron panel demonstrates iron deficiency. B12 level normal. -H&H stable. No overt signs of bleeding. -Continued vitamin-C and recommend consideration of Hematology evaluation outpatient for IV iron infusion as patient has not tolerated oral iron supplementation previously. -Monitor CBC daily. 3. Recent pneumonia. Resolved. -CXR demonstrated chronic lung disease and resolving pneumonia. Pneumonia comple tely treated at [facility] during last hospital admission. Infectious markers WNL and VSS. -Repeat chest xray in 6 weeks. 4. Acute on chronic hypoxemic respiratory failure secondary to COPD, present on admission. Acute portion resolved. -Continue supplemental oxygen with goal oxygen saturation 88% or greater. Patient is on 3L continuous oxygen at baseline. -Continued DuoNeb and Spiriva. Continued Dulera at time of discharge. 5. Chronic atrial fibrillation, present on admission. Stable. -Rate controlled off metoprolol. -Continued Plavix and Coumadin. INR therapeutic, continued to check daily. 6. CAD status post stent x 2 with valvular heart disease s/p TAVR, chronic, present on admission. Stable. -Continued atorvastatin 40 mg daily at bedtime, Plavix 75 mg daily and warfarin. -He has moderate to severe mitral stenosis, probably unchanged, on his echocardiogram. 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 Plan to discuss mitral valve replacement outpatient with Dr. Lopez and power plant engineer at . He has been extensively worked up at [facility] in [place]. -Discontinued metoprolol and lisinopril as above. 7. Underweight, chronic, present on admission. Active. -Patient has history of suspicious right lung nodule but has not had biopsy as he has several comorbid conditions which have taken precedent. He has had 30 lbs weight loss over last 6 months. -Continue high-calorie and low sodium diet with supplementation with each meal. -May benefit from a nutritional/dietitian consult outpatient. 8. BPH, chronic, present on admission. Stable. -Discontinued doxazosin and he is voiding without difficulty. Status at Discharge Overall status at discharge: patient is progressing back to baseline Exam Vital Signs (past 8 hours): - 08/22/18 05:00 08/22/18 05:24 08/22/18 05:27 Temperature 97.4 F L Pulse Rate 105 H Respiratory Rate 17 Blood Pressure 133/80 Pulse Oximetry 92 93 94 08/22/18 08:00 Temperature 97.4 F L Pulse Rate 97 H Respiratory Rate 20 Blood Pressure 143/74 H Pulse Oximetry 94 Fraction of Inspired Oxygen 28 Oxygen Delivery Method Nasal Cannula,Humidification Oxygen Flow Rate 2 Narrative Exam Narrative: General: Elderly gentleman sitting in bed and in no acute distress, well-developed, well-nourished, appropriately interactive. HEENT: Normocephalic, atraumatic. External ears without defect. Pupils equal, round, and reactive to light. Anicteric sclerae, moist conjunctivae, and no lid lag. Neck: Supple with full range of motion. No lymphadenopathy or thyromegaly. Cardiovascular: Regular rate and rhythm without murmurs, rubs, or gallops appreciated. Pulmonary: Clear to auscultation bilaterally without crackles, wheezes, or rhonchi. Normal respiratory effort with no use of accessory muscles. Abdomen: Soft, bowel sounds present, non-tender, non-distended. No hepatosplenom egaly or masses appreciated. Extremities: No clubbing, cyanosis, or edema. Early skin breakdown on buttocks with offloading with donut pillow. Skin: Normal temperature, turgor, and texture; no rash, ulcers, or subcutaneous nodules appreciated. Several scars on face bilaterally. Neurological: Cranial nerves grossly intact. Psychiatric: Normal mood and affect. Alert and oriented to person, place, and time. Objective Labs Result Diagrams: 08/22/18 05:20 08/22/18 05:20 Labs: Laboratory Results - last 24 hr 08/22/18 08/22/18 08/22/18 05:20 05:20 05:20 WBC 9.9 RBC 3.47 L Hgb 11.3 L Hct 34.4 L MCV 99.3 MCH 32.6 MCHC 32.8 RDW 24.4 H Plt Count 310 Neut % (Auto) 74.5 Lymph % (Auto) 12.4 L [place] % (Auto) 10.5 Eos % (Auto) 2.1 Baso % (Auto) 0.5 Neut # (Auto) 7400 H Lymph # (Auto) 1200 [place] # (Auto) 1000 H Eos # (Auto) 200 Baso # (Auto) 100 RBC Morphology Not Reportable Anisocytosis 2+ H Ovalocytes 1+ H PT 26.9 H INR 2.3 H Sodium 138 Potassium 4.3 Chloride 104 Carbon Dioxide 29 BUN 21 H Creatinine 1.20 Estimated GFR 58.0 L BUN/Creatinine Ratio 17.5 Glucose 104 Calcium 8.9 Magnesium 1.7 Discharge Plan Discharge Plan Patient Disposition: SNF Transfer to: [facility] Under care of provider: Dr. Ivy Transportation: Facility vehicle Discharge comment: Please keep an of bed at 20-30? at all times. Perform exercises provided prior to standing up and ambulating. Slow transitions (2-3 minutes) between supine to standing to ambulation. I certify the postop hospital shelter care is medically necessary on a continuing basis for any conditions for which he/ she received care during this hospitalization.: Yes The receiving facility has agreed to accept transfer and provide medical treatment.: Yes Discharge Med Rec/Prescriptions Prescriptions: New midodrine 5 mg Tablet 10 mg PO 0600,1200,1800 Qty: 90 RF: 0 fludrocortisone 0.1 mg Tablet 0.1 mg PO DAILY Qty: 30 RF: 0 guaifenesin 600 mg Tablet Extended Release 12hr 600 mg PO BID PRN (Reason: ecessive sputum production) Qty: 30 RF: 0 Continued atorvastatin 40 mg Tablet 40 mg PO BEDTIME RF: 0 ketoconazole 2 % Shampoo 1 applic TOPICAL MOWEFR RF: 0 clopidogrel [Plavix] 75 mg Tablet 75 mg PO DAILY RF: 0 ascorbic acid (vitamin C) 500 mg Tablet 500 mg PO DAILY RF: 0 saw palmetto 160 mg Capsule 160 mg PO DAILY RF: 0 warfarin [Coumadin] 2 mg Tablet 2 mg PO MO RF: 0 warfarin [Coumadin] 1 mg Tablet 1 mg PO [id number] RF: 0 coenzyme Q10 [CoQ-10] 100 mg Capsule 100 mg PO DAILY RF: 0 tiotropium bromide 18 mcg Capsule, W/Inhalation Device 1 cap Inhalation DAILY RF: 0 cholecalciferol (vitamin D3) [Vitamin D3] 1,000 unit Tablet 1,000 unit PO DAILY RF: 0 acetylcysteine 600 mg Capsule 600 mg PO DAILY RF: 0 magnesium oxide 400 mg magnesium Tablet 400 mg PO DAILY RF: 0 latanoprost 0.005 % Drops, Emulsion 1 drp ophthalmic (eye) BEDTIME RF: 0 albuterol sulfate 2.5 mg /3 mL (0.083 %) Solution For Nebulization 2.5 mg INHALATION Q4H PRN (Reason: Shortness Of Breath Or Wheezing) RF: 0 warfarin 3 mg Tablet 1.5 mg PO MO RF: 0 magnesium hydroxide [Milk of Magnesia] 400 mg/5 mL Suspension 30 ml PO PRN PRN (Reason: Constipation) RF: 0 bisacodyl 10 mg Suppository 10 mg KS PRN PRN (Reason: Constipation) RF: 0 Fleet Enema 19-7 gram/118 mL Enema 1 ea KS PRN PRN (Reason: Constipation) RF: 0 nitroglycerin 0.4 mg Tablet, Sublingual 0.4 mg SUBLINGUAL Q5-15M PRN (Reason: Chest Pain) RF: 0 bisacodyl 5 mg Tablet,Delayed Release (Dr/Ec) 5 - 10 mg PO PRN PRN (Reason: mild to severe constipation) RF: 0 albuterol sulfate 90 mcg/actuation Hfa Aerosol Inhaler 2 puff INHALATION Q4H PRN (Reason: Shortness Of Breath Or Wheezing) RF: 0 Dulera 200-5 mcg/actuation Hfa Aerosol Inhaler 2 puff INHALATION BID RF: 0 Discontinued furosemide 40 mg Tablet 40 mg PO DAILY RF: 0 doxazosin 4 mg Tablet 4 mg PO QPM RF: 0 lisinopril 5 mg Tablet 5 mg PO DAILY RF: 0 metoprolol tartrate 100 mg Tablet 100 mg PO BID RF: 0 Follow up/Referrals: Parmjit Lopez MD [Physician] - 2 Weeks Lino Dempsey MD [Primary Care Provider] - 2 Weeks Discharge Health Status Brief summary of current health status: The patient is orthostatic hypotension has improved significantly and he is asymptomatic. He continues to have orthos tatic readings but much improved and manageable. Continue fludrocortisone, midodrine, and compression stockings (worn 75% of 24 hour period). Patient also will need an abdominal binder worn 75% of a 24 hr period of tolerated. Continue PT and OT. Follow up with PCP (iron deficiency and malnourishment), Cardiology (orthostatic hypotension, cardiac medications, mitral valve management), and Pulmonology (R lung nodule) outpatient in the next several weeks to 1 month for chronic issues. Multidrug resistant organism: No MDRO Provider Discharge Instructions Diet: Low-fat, Low-sodium and Low-cholesterol Diet comment: High calorie diet, low sodium, supplements with each meal, encourage fluids Activity: Activity as tolerated with FWW Oxygen: 3 L NC at baseline [facility] Rehab type: Physical therapy, Occupational therapy and Speech therapy Visit Report/Discharge Packet Instructions: DI for Orthostatic Hypotension Discharge Data Primary Care Provider: Lino Dempsey Attending Provider: Jana Ang Admit Date/Time: 08/13/18 15:00 Quality VTE Deep Vein Thrombosis/Pulmonary Embolism Present on Admission: No
--- NOTE | 2018-08-22 09:56 | OT.IP.TRT ---
Current Diagnoses Hypotension, unspecified (08/13/18) Syncope and collapse (08/13/18) Occupational Therapy Treatment Note M2 OT-IP Current Condition Start: 08/14/18 17:49 Freq: Status: Active Protocol: Document 08/14/18 16:32 PJM (Rec: 08/14/18 18:07 PJM [id number]) Occupational Therapy Current Condition Current Condition Evaluation Date 08/14/18 Treatment Diagnosis decreased indep in self care, functional mobility due to hypotension Diagnosis Onset Date 08/13/18 Post Operative Precautions Other Precautions monitor BP, 3L O2 M3 OT- IP Subjective and Pain Start: 08/14/18 17:49 Freq: Status: Active Protocol: Document 08/22/18 09:56 PJM (Rec: 08/22/18 13:43 PJM [id number]) OT- Subjective Occupational Therapy Visit Type Type Treatment Note Visit Start Time 09:26 Visit Stop Time 09:56 Total Visit Minutes 30 Notes Per RN, pt to be discharged to [facility] later today. RN states pt's BP has been stable and only check BP if pt symptomatic. Occupational Therapy Visit Comments Patient Comments Pt states he would prefer to transfer to rehab facility in his own clothes due to cold weather. Patient/Caregiver Goals to get strong enough to go home OT Pain Assessment Pain When Pain Assessed After Treatment Pain Present Pain Present Denied Pain M4 OT- IP ADL's Start: 08/14/18 17:49 Freq: Status: Active Protocol: Document 08/22/18 09:56 PJM (Rec: 08/22/18 13:43 PJM [id number]) OT ADL-Grooming General Evaluation Grooming Ability Standby Assistance Areas Needing Assistance Combing/Brushing Hair Comments OT Grooming Comments pt combed hair seated in chair due to limited stadning tolerance at sink OT ADL-Oral Care General Eval Oral Care Ability Standby Assistance Devices Oral Care Devices Toothbrush Comments Oral Care Comments Pt stood for 4 min, then c/o fatigue and SOB. Pt on 2 L at start of session with O2 sats in mid 90's seated in chair. O2 sats decreased to 85 after standing for oral care. Increased O2 to 3 L with recovery in 1 min to low 90's. Pt needs mod verbal cues for pursed lip breathing technique . OT ADL-Dressing General Eval Upper Body Dressing Ability Standby Assistance Lower Body Dressing Ability Standby Assistance Areas Needing Assistance Pull-Over Shirt Pants/Shorts Shoes Comments OT Dressing Comments Pt wearing slip on slippers. Pt SBA to doff B short socks. Knee high GENEVA hose in place to assist with BP control. OT ADL-Bathing Comments OT Bathing Comments pt declined shower stating he used bath wipes earlier this AM M5 OT- IP IADL's Start: 08/14/18 17:49 Freq: Status: Active Protocol: Document 08/14/18 16:32 PJM (Rec: 08/14/18 18:07 PJM [id number]) OT-Instrumental Activities of Daily Living Deficits IADL Deficits Identified Deficits Home Safety Awareness Awareness of Need for Assistance at Home Good Awareness Medication Management Medication Management No Deficits Identified Money Management Money Management Caregiver Provides Assistance Meal Preparation Meal Preparation Caregiver Provides Assist Health Care Attorney Health Care Attorney Caregiver Provides Assist Driving Driving Caregiver Provides Assist M6 OT- IP Functional Cognition Start: 08/14/18 17:49 Freq: Status: Active Protocol: Document 08/22/18 09:56 PJM (Rec: 08/22/18 13:43 PJM [id number]) Cognitive Factors Limiting Selfcare Function Cognitive Ability Level of Alertness Alert Patient Orientation Name Age Birthday Month Date Year Day of Week Place Situation Attention Span Ability Capable of Focused Attention Capable of Sustained Attention Ability to Follow Commands Able to Follow One Step Commands Safety Awareness No Deficits Noted M7 OT- IP Mobility and Balance Start: 08/14/18 17:49 Freq: Status: Active Protocol: Document 08/22/18 09:56 PJM (Rec: 08/22/18 13:43 PJM [id number]) OT-Transfer Assessment Sit to and From Stand Sit to and from Stand Contact Guard Assistance 1 Person Assistance Transfers Transfer Ability Standby Assistance 1 Person Assistance Technique Transfer Destination Chair Transfer Technique Stand Step Pivot Devices Transfer Assistive Devices Gait Belt Front Wheeled Walker OT- Gait Assessment Gait Gait Assistance Required: Standby Assistance Distance (Feet) 20 Assistive Devices Assistive Device Gait Belt Front Wheeled Walker Comments Gait Ability Comments Pt walked to sink and back with FWW and no loss of balance noted. OT- Balance Assessment Sitting Balance and Reactions Static Sitting Balance Ability Good Dynamic Sitting Balance Ability Good Standing Balance and Reactions Static Standing Balance Ability Good Dynamic Standing Balance Ability Good Comments Other Balance Tests/Deviations/Treatment during grooming standing at : sink and lower body dressing M8 OT- IP Objective Assessments Start: 08/14/18 17:49 Freq: Status: Active Protocol: Document 08/14/18 16:32 PJM (Rec: 08/14/18 18:07 PJM [id number]) OT Gross Range of Motion Upper Extremity Range of Motion Assessment Within Functional Limits OT Strength Upper Extremity Strength Assessment Within Functional Limits OT- Coordination Assessment Comments Coordination Comments BUE WFL per pt OT-Muscle Tone Assessment Muscle Tone WNL Yes OT Sensation Assessment Comments Summary Comments WNL BUE per pt Edema Edema Absent M9 OT- IP Assessment and Plan Start: 08/14/18 17:49 Freq: Status: Active Protocol: Document 08/22/18 09:56 PJM (Rec: 08/22/18 13:43 PJM [id number]) OT Summary Assessment and Plan Summary Assessment Summary Pt's BP much more stable than last week with pt reporting only slight transient dizziness with position changes today. Pt tolerating sitting up in chair and stood 4 min at sink. SOB is now the major factor limiting activity tolerance. Pt on 2L O2 at rest today but needs to be increased to 3L for activity based on O2 sats. HR up to 120 with activity, 108-109 at rest. Pt would benefit from subacute rehab stay prior to return home with . Pt to d/c today to [facility] per RN. Frequency of Treatment Frequency Of Treatment Discharge
--- NOTE | 2018-08-22 10:45 | PT.IPTN ---
Current Diagnoses Hypotension, unspecified (08/13/18) Syncope and collapse (08/13/18) Physical Therapy Treatment Note M2 PT-IP Current Condition Start: 08/14/18 11:53 Freq: NEEDED Status: Active Protocol: Document 08/14/18 15:41 LR (Rec: 08/14/18 15:49 [facility] [id number]) Physical Therapy Current Condition Current Condition Evaluation Date 08/14/18 Treatment Diagnosis hypotension, weakness Precautions Other Precautions check BP Weight Bearing Status Weight Bearing Status Weight Bear as Tolerated M3 PT-IP Subjective Start: 08/14/18 11:53 Freq: NEEDED Status: Active Protocol: Document 08/22/18 10:45 GGD (Rec: 08/22/18 11:37 GGD [id number]) Subjective Physical Therapy Visit Type Type Patient Refusal Notes Pt refused states he is D/C soon. M4 PT-IP Mobility and Gait Start: 08/14/18 11:53 Focus Recommendations To Nursing Amount of Assist Needed 1 Person Assist Discharge Recommendations PT Discharge Recommendations SNF Rehab
--- NOTE | 2018-08-22 15:25 | PC.NURSE ---
Discharge Note Transferred to [facility] via wheelchair on 2L oxygen at 1520. Message left at [facility] to give report. Awaiting return call. All belongings with pt and pt's spouse.
--- NOTE | 2018-08-23 09:13 | CM.DPNOTE ---
Late Entry/DC Note: DC order in place Monday08.22.18; DC back to [facility]. Pt remains aware and agreeable to DCP. Updated Yani at [facility] and faxed signed and completed DC ppk to include signed med list. P/u scheduled for 1430. RN notified. RAYRAY
== END 2018-08-22 14:50 | DRG 640 ==
LOC: ED 14:59 → AC 16:12
PROVIDERS: Family Medicine; Internal Medicine; Nurse Practitioner Adult Health; Admitting Provider Internal Medicine; Emergency Provider Emergency Medicine; PCP Family Medicine; Visit Provider Internal Medicine
DX: E86.9 Volume depletion, unspecified (principal); J96.21 Acute and chronic respiratory failure with hypoxia; J96.22 Acute and chronic respiratory failure with hypercapnia; I50.20 Unspecified systolic (congestive) heart failure; I47.2 Ventricular tachycardia; Z68.1 Body mass index [BMI] 19.9 or less, adult; I95.1 Orthostatic hypotension; Z99.81 Dependence on supplemental oxygen; J44.9 Chronic obstructive pulmonary disease, unspecified; R63.4 Abnormal weight loss; I25.10 Atherosclerotic heart disease of native coronary artery without angina pectoris; Z95.0 Presence of cardiac pacemaker; R33.9 Retention of urine, unspecified; I48.2 Chronic atrial fibrillation; I05.0 Rheumatic mitral stenosis; Z79.01 Long term (current) use of anticoagulants; D50.9 Iron deficiency anemia, unspecified; N40.1 Benign prostatic hyperplasia with lower urinary tract symptoms
CPT/HCPCS: 36415; 36430; 36591; 36600; 51701; 70450; 71045; 74230; 80048; 80053; 81001; 82550; 82607; 82805; 83540; 83550; 83605; 83735; 83880; 84145; 84484; 85014; 85018; 85025; 85610; 86850; 86900; 86901; 87040; 87400; 87493; 92526; 92610; 92611; 93005; 93306; 94640; 94760; 94770; 96361; 96365; 96368; 96375; 97116; 97163; 97165; 97530; 97535; 99285; 99291; 99292; P9016; J0610; J1940; J2543; J7050